=== PATIENT | female | born 1965 | race Asian ===

== ENCOUNTER 2018-03-21 14:35 | Inpatient (IN) | payer OTHER, MEDICAID ==
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
[2018-03-21] MEDS ORDERED: ONDANSETRON 4 MG/2 ML VIAL IVP PRN (18:01)
[2018-03-21] MEDS ORDERED: ONDANSETRON DISINTEGRATING 4 MG TAB PO PRN (18:01)
[2018-03-21 18:40] LABS: PLATELET COUNT 655 10^3/uL (150-400)
[2018-03-21] MEDS ORDERED: IOPAMIDOL (ISOVUE-300) 100 ML BTL ONE (19:00)
[2018-03-21 19:15] LABS: INR 1.11 (0.83-1.16); PROTIME(PATIENT) 14.5 SEC (12.0-15.0)
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
[2018-03-22 04:42] LABS: PLATELET COUNT 452 10^3/uL (150-400)
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
[2018-03-22] MEDS ORDERED: GADOBUTROL 10 ML VIAL IVP ONE (16:38)
[2018-03-23 05:22] LABS: PLATELET COUNT 425 10^3/uL (150-400)
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
[2018-03-23] MEDS ORDERED: MAGNESIUM HYDROXIDE 30 ML UDCUP PO PRN (14:02)
[2018-03-23] MEDS: SODIUM FERRIC GLUCONAT/SUCROSE 125 MG in NS 100 ML IV SCH (14:36)
[2018-03-24] MEDS: SODIUM FERRIC GLUCONAT/SUCROSE 125 MG in NS 100 ML IV SCH (09:08)
[2018-03-24] MEDS: ACETAMINOPHEN 325 MG TAB PO PRN ×3 (09:08→22:22)
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
--- NOTE | 2018-03-24 15:38 | ASMTCMCOM ---
CM Note CM Note Notes: Dr Downey met with pt to discuss probably metastatic dx of unknown primary and need for further testing. Pt declined at this time. CM will meet with pt tomorrow to discuss any concerns and any DC needs. CM to follow. Date Signed: 03/24/2018 03:37 PM Electronically Signed By:Dena Yin LCSW
[2018-03-25] MEDS: ACETAMINOPHEN 325 MG TAB PO PRN (06:17)
[2018-03-25 08:03] VITALS: BP 113/69
[2018-03-25] MEDS: SODIUM FERRIC GLUCONAT/SUCROSE 125 MG in NS 100 ML IV SCH ×2 (09:44→09:46)
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
== END 2018-03-25 19:00 | disposition home or self-care (01) | DRG 812 ==
LOC: EDBD 14:35 → F2N 19:47 → F1N 03-22 18:24
PROVIDERS: ADMIT Student in an Organized Health Care Education/Training Program; ATTEND Internal Medicine
PROC: 30233N1 Transfusion of Nonautologous Red Blood Cells into Peripheral Vein, Percutaneous Approach (ICD-10-PCS; principal; 2018-03-21)
DX: D50.9 Iron deficiency anemia, unspecified (principal); R41.0 Disorientation, unspecified; R47.01 Aphasia; C78.7 Secondary malignant neoplasm of liver and intrahepatic bile duct; C18.9 Malignant neoplasm of colon, unspecified; E87.1 Hypo-osmolality and hyponatremia; D47.3 Essential (hemorrhagic) thrombocythemia; Z03.89 Encounter for observation for other suspected diseases and conditions ruled out
CPT/HCPCS: 80305; 82607-90; 83010-90; 92507-GN; 92523-GN; 97112-GP; 97116-GP; 97161-GP; 97165-GO; 97530-GP; 97535-GO; A9585; G0480; J2916; P9016; Q9967

== ENCOUNTER 2018-03-30 16:36 | Inpatient (IN) | payer OTHER, MEDICAID ==
--- NOTE | 2018-03-30 16:36 | EDPHY ---
H & P Time Seen by Provider: 03/30/18 16:39 Constitutional: Initial Vital Signs Heart Rate 101 H 03/30/18 16:49 Respiratory Rate 18 03/30/18 16:49 Blood Pressure 118/70 03/30/18 16:49 O2 Sat (%) 95 03/30/18 16:49 O2 Delivery Mode Room Air Allergies/Adverse Reactions: antibiotics Allergy (Uncoded 03/21/18 14:54) Home Medications: Medication Instructions Recorded NK [No Known Home Meds] 03/21/18 Medical Decision Making ED Course/Re-evaluation: CHIEF COMPLAINT: Confusion, speech problems. HISTORY OF PRESENT ILLNESS: This patient is a 52 year old female arriving via EMS for evaluation of altered mental status. EMS picked her up from outside her apartment, were she was waiting for a turning sander tender. Throughout my interview she appears confused and disorganized, and it is difficult to obtain a clear history. She repeats that she is embarrassed and that the nurse knows her story. She was recently admitted 03/21/18 for severe anemia with hematocrit of 13. She had considerable weight loss in prior six months. During her admission, it was discovered by CT that she likely has metastatic hepatic disease with likely colon primary. Followup MRI showed possible small area of brain metastasis. Further HPI unable to obtain secondary to patient's mental status. REVIEW OF SYSTEMS: Unable to obtain. PHYSICAL EXAM: HR, BP, O2 Sat, RR. Temp noted General Appearance: Alert, appears confused and concerned. Head: Atraumatic without scalp tenderness or obvious injury Eyes: Pupils equal, round, reactive to light and accommodation, EOMI, no trauma , no injection. Ears: Clear bilaterally, no perforation, normal landmarks Nose: Atraumatic, no rhinorrhea, clear. Throat: There is no erythema or exudates, no lesions, normal tonsils, mucus membranes moist. Neck: Supple, 2+ carotid upstroke, nontender, no lymphadenopathy. Respiratory: No retractions, no distress, no wheezes, and no accessory muscle use. Lungs are clear to auscultation bilaterally. Cardiovascular: Regular rate and rhythm, no murmurs, rubs, or gallops. Bilateral carotid, radial, dorsalis pedis, and posterior tibial pulses intact. Good capillary refill all extremities. Gastrointestinal: Abdomen is soft, nontender, non-distended, no masses, no rebound, no guarding, no peritoneal signs. Musculoskeletal: Normal active ROM of all extremities, atraumatic. Neurological: Alert, appears confused, concerned.. Nonfocal neuro exam. Skin: No rashes, good turgor, no nodules on palpation. Past medical history: Anemia. Recent diagnosis of metastatic disease. Past surgical history: Unknown. Family history: Unable to obtain. Social history: Works at [employer]. DIFFERENTIAL DIAGNOSIS: The differential diagnosis for the patient's altered mental status included but was not limited to hypoglycemia, infectious process, electrolyte abnormality, head injury, neurologic process, anemia, cardiac process, and intoxicants. MEDICAL DECISION MAKIN52 y/o female presents with altered mental status. She has a similar but less severe presentation at her prior admission 03/21/18, as reported by nurses who worked with her at her prior visit. She was severely anemic at that time. Plan for labs including CBC, chemistries, ammonia, EtOH, tox screen. Reviewed laboratory studies. Hct 27.7. Tox screen negative. Chemistries unremarkable. 19:[address] Quinn, hospitalist. She accepts admission for altered mental status. Plan for CT head for further evaluation. 20:21 Administered 2mg IV Ativan for anxiety relief. Plan to admit as above. - Data Points Laboratory Results: Laboratory Results 03/30/18 17:52 03/30/18 17:52 03/30/18 03/30/18 03/30/18 17:52 17:52 17:52 WBC RBC Hgb Hct MCV MCH MCHC RDW Plt Count MPV Neut % (Auto) Lymph % (Auto) [place] % (Auto) Eos % (Auto) Baso % (Auto) Nucleat RBC Rel Count Absolute Neuts (auto) Absolute Lymphs (auto) Absolute Monos (auto) Absolute Eos (auto) Absolute Basos (auto) Absolute Nucleated RBC Immature Gran % Immature Gran # Platelet Estimate Bizarre Platelets Polychromasia Hypochromasia Microcytic Cells Elliptocytes Keratocytes Sodium 141 mEq/L mEq/L (135-145) Potassium 4.3 mEq/L mEq/L (3.3-5.0) Chloride 104 mEq/L mEq/L (97-110) Carbon Dioxide 25 mEq/l mEq/l (22-31) Anion Gap 12 mEq/L mEq/L (8-16) BUN 24 mg/dL H mg/dL (7-23) Creatinine 0.5 mg/dL L mg/dL (0.6-1.0) Estimated GFR > 60 Glucose 92 mg/dL mg/dL (70-100) Calcium 8.9 mg/dL mg/dL (8.5-10.4) Ammonia 20.0 uMOL/L uMOL/L (9.0-30.0) Beta HCG, Qual NEGATIVE Salicylates < 1.0 mg/dL L mg/dL (2.0-20.0) Acetaminophen < 10 mcg/mL L mcg/mL (10-30) Ethyl Alcohol < 10 mg/dL mg/dL (0-10) 03/30/18 17:52 WBC 10.54 10^3/uL H 10^3/uL (3.80-9.50) RBC 3.50 10^6/uL L 10^6/uL (4.18-5.33) Hgb 8.0 g/dL L g/dL (12.6-16.3) Hct 27.7 % L % (38.0-47.0) MCV 79.1 fL L fL (81.5-99.8) MCH 22.9 pg L pg (27.9-34.1) MCHC 28.9 g/dL L g/dL (32.4-36.7) RDW 26.7 % H % (11.5-15.2) Plt Count 692 10^3/uL H 10^3/uL (150-400) MPV 8.1 fL L fL (8.7-11.7) Neut % (Auto) 80.5 % H % (39.3-74.2) Lymph % (Auto) 10.7 % L % (15.0-45.0) [place] % (Auto) 6.6 % % (4.5-13.0) Eos % (Auto) 0.9 % % (0.6-7.6) Baso % (Auto) 0.9 % % (0.3-1.7) Nucleat RBC Rel Count 0.0 % % (0.0-0.2) Absolute Neuts (auto) 8.49 10^3/uL H 10^3/uL (1.70-6.50) Absolute Lymphs (auto) 1.13 10^3/uL 10^3/uL (1.00-3.00) Absolute Monos (auto) 0.70 10^3/uL 10^3/uL (0.30-0.80) Absolute Eos (auto) 0.09 10^3/uL 10^3/uL (0.03-0.40) Absolute Basos (auto) 0.09 10^3/uL 10^3/uL (0.02-0.10) Absolute Nucleated RBC 0.00 10^3/uL 10^3/uL (0-0.01) Immature Gran % 0.4 % % (0.0-1.1) Immature Gran # 0.04 10^3/uL 10^3/uL (0.00-0.10) Platelet Estimate INCREASED H (ADEQ) Bizarre Platelets PRESENT H Polychromasia 1+ H Hypochromasia 2+ H Microcytic Cells 1+ H Elliptocytes 1+ H Keratocytes 1+ H Sodium Potassium Chloride Carbon Dioxide Anion Gap BUN Creatinine Estimated GFR Glucose Calcium Ammonia Beta HCG, Qual Salicylates Acetaminophen Ethyl Alcohol Medications Given: Discontinued Medications Lorazepam (Ativan Injection) 2 mg IVP EDNOW ONE Stop: 03/30/18 20:22 Last Admin: 03/30/18 20:56 Dose: 2 mg Olanzapine (Zyprexa Zydis) 10 mg PO ONCE ONE Stop: 03/30/18 20:22 Last Admin: 03/30/18 20:57 Dose: Not Given Departure - Departure Disposition: [facility] Clinical Impression: Altered mental status Qualifiers: Altered mental status type: unspecified Qualified Code(s): R41.82 - Altered mental status, unspecified Condition: Fair Report Scribed for: Andrea Lamb Report Scribed by: Lorena Landeros Date of Report: 03/30/18 Time of Report: 16:52
--- NOTE | 2018-03-30 18:24 | ASMTCMCOM ---
CM Note CM Note Notes: Chart reviewed upon noting patient's recent admission and discharge (see reports 03/21/18-03/25/18). At present patient is extremely confused, clear speech but non sequential. She has her "best friend" Carolina on speaker phone as technical administrator is attempting to start IV and obtain blood for labs. Patient does give me permission to list Carolina as contactor PTN, as well as her "brother Catracho" . Patient (and Carolina) confirm that Catracho is in [place]. Patient is quite agitated and would like to keep Carolina on the phone at this time. In addition, patient has the phone number for her "CM at [facility]" written on a piece of paper [phone] Patient is clearly unable to have insight into her situation at this time and she will be admitted for further workup. I have called Carolina and BRANDEE (patient still has him on the phone) and informed him of plans for admission and to encourage availability for continued emotional support. CM to follow Date Signed: 03/30/2018 06:24 PM Electronically Signed By:Marilin Torres RN
[2018-03-30 18:30] LABS: PLATELET COUNT 692 10^3/uL (150-400)
[2018-03-30] MEDS ORDERED: ONDANSETRON DISINTEGRATING 4 MG TAB PO PRN (19:04)
[2018-03-30] MEDS ORDERED: ONDANSETRON 4 MG/2 ML VIAL IVP PRN (19:04)
[2018-03-30] MEDS ORDERED: IOPAMIDOL (ISOVUE-300) 100 ML BTL ONE (19:16)
[2018-03-30] MEDS ORDERED: LORazepam 2 MG/ML INJ ONE (20:19)
[2018-03-30] MEDS ORDERED: LORazepam 2 MG/ML INJ IVP ONE (20:21)
[2018-03-30] MEDS ORDERED: OLANZapine DISINTEGR 10 MG TAB PO ONE (20:21)
[2018-03-30] MEDS ORDERED: NS 1,000 ML IV SCH (22:15)
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
--- NOTE | 2018-03-31 07:36 | PDMN ---
Medical Necessity Medical necessity: Pt meets INPT criteria per MD and [facility] Systemic or Infectious Condition GRG (acute encephalopathy with suspected metastatic GI malignancy, iron deficeincy anemia, severe protein caloric malnutrition; est. LOS >2 MN).
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
--- NOTE | 2018-03-31 17:51 | HOSPPROG ---
Hospitalist Progress Note Assessment/Plan: Brother is concerned that patient cannot make decisions, would like to speak with day-rounder, his number is [phone] Objective: Vital Signs Temp Pulse Resp BP Pulse Ox 36.7 C 87 14 120/57 L 97 03/31/18 15:43 03/31/18 15:43 03/31/18 15:43 03/31/18 15:43 03/31/18 15:43 Laboratory Results 03/31/18 04:30 03/30/18 03/31/18 04/01/18 05:59 05:59 05:59 Output Total 700 850 Balance -700 -850 ICD10 Worksheet Patient Problems: Problems Problem Status Onset Anemia Acute Altered mental status Acute
[2018-03-31] MEDS: CALCIUM CARBONATE 500 MG CHEWABLE TAB PO PRN (20:38)
[2018-03-31] MEDS: FAMOTIDINE 20 MG TAB PO SCH (20:39)
[2018-03-31] MEDS: oxyCODONE IR 5 MG TAB PO PRN ×2 (20:39→22:29)
[2018-04-01] MEDS ORDERED: diphenhydrAMINE 25 MG CAP PO PRN (00:10)
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
[2018-04-01] MEDS: FAMOTIDINE 20 MG TAB PO SCH ×2 (08:37→20:01)
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
[2018-04-01] MEDS: CALCIUM CARBONATE 500 MG CHEWABLE TAB PO PRN (20:01)
[2018-04-01] MEDS: ACETAMINOPHEN 325 MG TAB PO PRN ×2 (20:02→23:50)
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
--- NOTE | 2018-04-01 20:41 | ASMTTCLDSP ---
[facility] Discharge Disposition Disposition Notes: Notes: Pt will remain on medical floor for medical treatment. Discharge Concerns/Recommendations: Notes: In consultation with [facility] ED physician, and on-call psychiatrist, , both concurred that Pt does not appear to meet 27-65 criteria requiring psychiatric hospitalization as Pt does not appear to be an imminent risk of harm to self/others/due to grave disability due to a mental illness condition. Was patient given the Answers: Not applicable Inpatient Behavioral Health Prohibited Belongings List while in the ED? Date Signed: 04/01/2018 08:41 PM Electronically Signed By:Erika Barros
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
[2018-04-02] MEDS: FAMOTIDINE 20 MG TAB PO SCH ×2 (07:48→21:31)
[2018-04-02] MEDS: ACETAMINOPHEN 325 MG TAB PO PRN ×2 (13:14→21:30)
--- NOTE | 2018-04-02 15:21 | GDS ---
[f rep st] DISCHARGE SUMMARY DISCHARGE DIAGNOSIS: 1. Acute encephalopathy. 2. 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 3. Iron deficiency anemia. 4. Severe protein calorie malnutrition. CONSULTATIONS: 1. TLC. 2. Montse Crain. PHYSICAL EXAM: GENERAL: The patient is alert. VITAL SIGNS: Afebrile at 36.6, pulse is 80, respira tory rate is is 18, blood pressure is 108/61. She is saturating 98% on room air. I have seen and evaluated the patient on the day of discharge. HOSPITAL COURSE: The patient is a 52-year-old female who presented to the emergency room after being found confused. She was evaluated and diagnosed with: 1. Acute encephalopathy. This was multifactorial. The patient did have a CT of her head, which bill wed no acute process. MRI was performed. Her encephalopathy has completely resolved. Her mentation has returned to baseline. 2. Hyper-enhancing abnormality on MRI. The patient is aware, and is understanding that we have conc erns for malignancy and abnormality. She wants no further intervention at this time. 3. 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 The patient is to be followed up with Dr. Dow[facility] setting. She has been offered further evaluation, including colonoscopy and/or liver biopsy during this hospitalization. She is refusing at this time, and understands that this could be detri mental to her health. She understands that she needs to follow up in the outpatient setting, and sana t her health is compromised. 4. Iron deficiency anemia. This is stable, is in the setting of likely metastatic gastroenterology complication. 5. Severe protein-calorie malnutrition. Again, the patient has multiple reasons for this. She does not eat, as well as has an abnormality in her gastrointestinal system. 6. Psychosocial: The patient has been seen by TLC during this hospitalization. She is felt to be a ppropriate and of capacity to make her own decisions. She has also been seen by Montse Crain during th is hospital course. The patient understands the repercussions of ignoring her diagnoses and further evaluation. She will be discharged home with further management outside the hospital with Dr. Downey, as well as o ther interventions, such as colonoscopy and/or liver biopsy. I have spent greater than 35 minutes in the care, coordination, and management of this patient's disp osition, assuring that she is knowledgeable about her condition, and the importance of outpatient fol lowup. I have also discussed the patient's disposition with Montse Crain, who is in agreement with thi s plan. DISCHARGE MEDICATIONS: None. /[id number]/MODL
[2018-04-02 15:53] VITALS: BP 124/78
--- NOTE | 2018-04-02 16:02 | ASMTCMCOM ---
CM Note CM Note Notes: Pt medically stable for d/c home independent, while pt is in process of moving she still has her own apartment to d/c to. Pt provided [facility] provider list as she expressed wanting to obtain [facility] PCP. Pt to follow up with oncology outpatient. Pt assessed to be able to make medical decisions and assessed by TLC (see note). No CM d/c needs identified Date Signed: 04/02/2018 04:02 PM Electronically Signed By:DELMER Lezama
--- NOTE | 2018-04-02 17:08 | ASMTLACE ---
PHILOMENAE Length of stay for Answers: 3 days current admission Acuity / Level of Answers: Yes Care: Did the patient have an inpatient admission? # of Emergency department Answers: 1-2 visits in the last 6 months Score: 7 Date Signed: 04/02/2018 04:58 PM Electronically Signed By:DELMER Lezama
[2018-04-02] MEDS: CALCIUM CARBONATE 500 MG CHEWABLE TAB PO PRN (21:30)
== END 2018-04-02 22:11 | disposition home or self-care (01) | DRG 70 ==
LOC: EDUNIT# → OBSVTOIN 19:06 → F3N 21:13
PROVIDERS: ADMIT Internal Medicine; ATTEND Internal Medicine
DX: G93.40 Encephalopathy, unspecified (principal); E43 Unspecified severe protein-calorie malnutrition; D50.9 Iron deficiency anemia, unspecified; R90.89 Other abnormal findings on diagnostic imaging of central nervous system; C78.7 Secondary malignant neoplasm of liver and intrahepatic bile duct; C18.9 Malignant neoplasm of colon, unspecified; R64 Cachexia; Z68.1 Body mass index [BMI] 19.9 or less, adult
CPT/HCPCS: 80305; 92610-GN; G0480; J2060; Q9967

== ENCOUNTER 2018-04-06 22:04 | Inpatient (IN) | payer OTHER, MEDICAID ==
[2018-04-07 00:03] LABS: PLATELET COUNT 957 10^3/uL (150-400)
--- NOTE | 2018-04-07 01:37 | EDPHY ---
H & P Stated Complaint: amemia and unable to sleeping prt pt Time Seen by Provider: 04/06/18 22:09 HPI/ROS: Chief Complaint: Delusional HPI: 52-year-old woman with a history of iron deficiency anemia, recently diagnosed with intra-abdominal likely metastatic masses and recent admissions for delirium. Patient came up to an ambulance the knocked on the door and said that she needed help. Patient says row she needs legal help. She is in a process of moving. She is also complaining of concerns about not being able to find her friends. She is rambling and very tangential. She has a history of similar episodes with her last 2 admissions which were attributed to her delirium from her iron-deficiency anemia. These resolved when she received blood transfusions. She has not followed up with Oncology. She states she has a process of moving and does not have time for this. She is very fixated on sending in males and having me fill out paperwork for legal issues. She seems unconcerned about her medical condition. ROS: 10 point Review of Systems is negative except as noted in the HPI. PMH: Iron deficiency anemia, likely metastatic colon cancer, delirium, malnutrition Social History: No smoking, no alcohol, no recreational drug use Family History: non-contributory Physical Exam: Gen: Awake, Alert, No Distress, frail and thin HEENT: Nose: no rhinorrhea Eyes: PERRLA, EOMI Mouth: Moist mucosa Neck: Supple, no JVD Chest: nontender, lungs clear to auscultation Heart: S1, S2 normal, no murmur Abd: Soft, non-tender, no guarding Back: no CVA tenderness, no midline tenderness Ext: no edema, non-tender Skin: no rash Neuro: CN II-XII intact, Sensation grossly intact, Strength 5/5 in bilateral upper and lower extremities - Personal History LMP (Females 10-55): Unknown Current Tetanus Diphtheria and Acellular Pertussis (TDAP): Unsure - Medical/Surgical History Hx Asthma: No Hx Chronic Respiratory Disease: No Hx Diabetes: No Hx Cardiac Disease: No Hx Renal Disease: No Hx Cirrhosis: No Hx Alcoholism: No Hx HIV/AIDS: No Hx Splenectomy or Spleen Trauma: No Other PMH: anemia - Social History Smoking Status: Never smoked Constitutional: Initial Vital Signs Temperature (C) 37.0 C 04/06/18 22:20 Heart Rate 90 04/06/18 22:20 Respiratory Rate 20 04/06/18 22:20 Blood Pressure 112/68 04/06/18 22:20 O2 Sat (%) 98 04/06/18 22:20 O2 Delivery Mode Room Air Allergies/Adverse Reactions: antibiotics Allergy (Uncoded 03/21/18 14:54) Home Medications: Medication Instructions Recorded NK [No Known Home Meds] 03/21/18 Medical Decision Making ED Course/Re-evaluation: Patient is noted drop in her hematocrit from 26-21 in the last 4 days. As she is currently presenting with a delirium. She will require transfusion. I have discussed with Dr. Yadav, hospitalist. She will admit to her service. I have ordered 2 units of crossmatched blood . - Data Points Laboratory Results: Laboratory Results 04/06/18 23:50 04/06/18 23:50 04/06/18 04/06/18 23:50 23:50 WBC 10.68 10^3/uL H 10^3/uL (3.80-9.50) RBC 2.71 10^6/uL L 10^6/uL (4.18-5.33) Hgb 6.3 g/dL L g/dL (12.6-16.3) Hct 21.4 % L % (38.0-47.0) MCV 79.0 fL L fL (81.5-99.8) MCH 23.2 pg L pg (27.9-34.1) MCHC 29.4 g/dL L g/dL (32.4-36.7) RDW 24.2 % H % (11.5-15.2) Plt Count 957 10^3/uL H 10^3/uL (150-400) MPV 7.9 fL L fL (8.7-11.7) Neut % (Auto) 81.5 % H % (39.3-74.2) Lymph % (Auto) 9.6 % L % (15.0-45.0) Day % (Auto) 7.2 % % (4.5-13.0) Eos % (Auto) 0.8 % % (0.6-7.6) Baso % (Auto) 0.4 % % (0.3-1.7) Nucleat RBC Rel Count 0.0 % % (0.0-0.2) Absolute Neuts (auto) 8.70 10^3/uL H 10^3/uL (1.70-6.50) Absolute Lymphs (auto) 1.03 10^3/uL 10^3/uL (1.00-3.00) Absolute Monos (auto) 0.77 10^3/uL 10^3/uL (0.30-0.80) Absolute Eos (auto) 0.09 10^3/uL 10^3/uL (0.03-0.40) Absolute Basos (auto) 0.04 10^3/uL 10^3/uL (0.02-0.10) Absolute Nucleated RBC 0.00 10^3/uL 10^3/uL (0-0.01) Immature Gran % 0.5 % % (0.0-1.1) Immature Gran # 0.05 10^3/uL 10^3/uL (0.00-0.10) Platelet Estimate INCREASED H (ADEQ) Polychromasia 1+ H Hypochromasia 2+ H Microcytic Cells 1+ H Oval Macrocytes 1+ H Elliptocytes 1+ H Smear Review By Pending Sodium 139 mEq/L mEq/L (135-145) Potassium 4.2 mEq/L mEq/L (3.3-5.0) Chloride 102 mEq/L mEq/L (97-110) Carbon Dioxide 27 mEq/l mEq/l (22-31) Anion Gap 10 mEq/L mEq/L (8-16) BUN 12 mg/dL mg/dL (7-23) Creatinine 0.4 mg/dL L mg/dL (0.6-1.0) Estimated GFR > 60 Glucose 102 mg/dL H mg/dL (70-100) Calcium 8.8 mg/dL mg/dL (8.5-10.4) Departure - Departure Disposition: [facility] Clinical Impression: Anemia, Altered mental status Condition: Fair Referrals: Patient,NotPresent [Primary Care Provider] - As per Instructions
[2018-04-07] MEDS ORDERED: ONDANSETRON 4 MG/2 ML VIAL IVP PRN (02:44)
[2018-04-07] MEDS ORDERED: ACETAMINOPHEN 325 MG TAB PO PRN (02:44)
[2018-04-07] MEDS ORDERED: NS 1,000 ML IV SCH (02:45)
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
[2018-04-07] MEDS: CALCIUM CARBONATE 500 MG CHEWABLE TAB PO PRN (15:40)
--- NOTE | 2018-04-07 16:55 | HOSPPROG ---
Hospitalist Progress Note Assessment/Plan: # anemia - likely d/t slow GI loss - improved s/p transfusion; recheck tomorrow # thrombocytosis - likely d/t Fe defic anemia # suspected cancer - she will revisit with me tomorrow discussions surrounding diagnosis/ treatment - check CEA, ca-19-9 # social - very tangential; currently seems to have limited social support; will make overall planning difficult I spent a total of 25 minutes of prolonged, direct face to face patient care time from 4:00-4:35 pm Objective: Vital Signs Temp Pulse Resp BP Pulse Ox 36.9 C 109 H 16 135/77 H 96 04/07/18 16:30 04/07/18 16:30 04/07/18 16:30 04/07/18 16:30 04/07/18 16:30 Laboratory Results 04/07/18 08:45 04/06/18 04/07/18 04/08/18 05:59 05:59 05:59 Intake Total 1300 Output Total 1400 Balance 1300 -1400 ICD10 Worksheet Patient Problems: Problems Problem Status Onset Anemia Acute Altered mental status Acute
[2018-04-08 04:50] LABS: PLATELET COUNT 870 10^3/uL (150-400)
--- NOTE | 2018-04-08 09:54 | ASMTCMCOM ---
CM Note CM Note Notes: CM Note from Monday04/07/12, written by Dena Yin LCSW (previously entered into incorrect chart) Per chart notes, pt admitted with acute encephalopathy, anemia, malnutrition and suspected malignancy of unknown origin. This ps pt's third hospitalization. Pt has refused workup for suspected ca. Met with pt who is tangential in her speech and hard to redirect. Pt has been in process of moving out of her apartment since end of February. She still has not moved out nor does she have a place to stay when she does. She indicated her brother Catracho in [place] may be able to take her in but that it would take a while to arrange that. She has no interest in a SNF. Per Dr Trujillo, though pt has refused colonoscopy, he will consider other options for getting a more definitive dx. Pt's DC needs unclear. Date Signed: 04/08/2018 09:53 AM Electronically Signed By:Rose Lynch RN
--- NOTE | 2018-04-08 11:52 | HOSPPROG ---
Hospitalist Progress Note Assessment/Plan: # anemia - likely d/t slow GI loss - improved s/p transfusion; recheck tomorrow # acute encephalopathy - seems related to her anemia; better again today # thrombocytosis - likely d/t Fe defic anemia, possibly inflammation # suspected cancer - she will revisit with me tomorrow discussions surrounding diagnosis/ treatment - CEA indeterminate, ca-19-9 pending # social - less tangential today - she is getting her belongings taken care of and moved out of her apt - she would like to think about doing a needle biopsy of a lesion in her liver - she will follow up with Dr Downey as an outpatient, possibly for outpatient transfusions Subjective: we haed a long discussion about her current status; she is getting her belongings taken care of and moved out of her apt; she would like to think about doing a needle biopsy of a lesion in her liver; she will follow up with Dr Downey as an outpatient, possibly for outpatient transfusions Objective: Vital Signs Temp Pulse Resp BP Pulse Ox 36.9 C 83 16 121/76 H 99 04/08/18 09:03 04/08/18 09:03 04/08/18 09:03 04/08/18 09:03 04/08/18 09:03 Laboratory Results 04/08/18 04:40 04/07/18 04/08/18 04/09/18 05:59 05:59 05:59 Intake Total 1300 1800 Output Total 3250 Balance 1300 -1450 - Time Spent With Patient Time Spent with Patient: greater than 35 minutes Time Spent with Patient: Greater than 35 minutes spent on this patients care, greater than 50% of time spent counseling, educating, and coordinating care regarding the above mentioned plan. - Physical Exam Constitutional: no apparent distress, appears nourished ICD10 Worksheet Patient Problems: Problems Problem Status Onset Anemia Acute Altered mental status Acute
--- NOTE | 2018-04-08 20:03 | PDMN ---
Medical Necessity Medical necessity: [facility] M35 anemia: A-1 INPT anemia likely GI loss improving with transfusions ( X2 ) , H 6.3,8.9,8.5.. AMS persistent- improving, thrombocytosis, suspect Ca., pt with mets to liver and lesion on MRI 5 mm focus on the L cerebellar vermis, status changed to INPT 04/08/18 for ongoing med nec. further monitoring and tx needed.
[2018-04-08] MEDS: CALCIUM CARBONATE 500 MG CHEWABLE TAB PO PRN (21:51)
[2018-04-09 04:44] LABS: PLATELET COUNT 846 10^3/uL (150-400)
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
--- NOTE | 2018-04-09 11:02 | HOSPPROG ---
Hospitalist Progress Note Assessment/Plan: # anemia - likely d/t slow GI loss - improved s/p transfusion; recheck tomorrow # acute encephalopathy - seems related to her anemia; better again today # thrombocytosis - likely d/t Fe defic anemia, possibly inflammation # suspected cancer - per Dr Fitzgerald her prognosis is 3 months without treatment - will discuss tomorrow at 11a with patient and her MDPOA Gene - CEA indeterminate, ca-19-9 pending # social - less tangential today - she will likely follow up with Dr Downey as an outpatient, possibly for outpatient transfusions Subjective: long discussion today; met with Lisa and spoke with Gene on the phone Objective: Vital Signs Temp Pulse Resp BP Pulse Ox 36.7 C 85 16 113/71 99 04/09/18 07:28 04/09/18 07:28 04/09/18 07:28 04/09/18 07:28 04/09/18 07:28 Laboratory Results 04/09/18 04:23 04/08/18 04/09/18 04/10/18 05:59 05:59 05:59 Intake Total 800 Output Total 2850 Balance -2049 - Time Spent With Patient Time Spent with Patient: greater than 35 minutes Time Spent with Patient: Greater than 35 minutes spent on this patients care, greater than 50% of time spent counseling, educating, and coordinating care regarding the above mentioned plan. - Physical Exam Constitutional: no apparent distress, appears nourished ICD10 Worksheet Patient Problems: Problems Problem Status Onset Anemia Acute Altered mental status Acute
[2018-04-09] MEDS: SODIUM FERRIC GLUCONAT/SUCROSE 125 MG in NS 100 ML IV SCH (14:08)
--- NOTE | 2018-04-09 16:26 | ASMTCMCOM ---
CM Note CM Note Notes: Spoke with Nasima from [facility] ([phone]) who is concerned if patient has been told she has cancer and whether she is willing to proceed with medical procedures to determine what is causing her anemia. Nasima was informed patient is decisional per Dr. Trujillo and doing a psych eval is not going to solve issues with her medical care right now. We also did a psych eval her last admission. Spoke with patient's nurse prior to going to visit with the patient. Patient has not slept and the nurse requested I not wake her up. CM to follow up tomorrow and see if patient has a friend or family member she can stay with. Nasima ([facility]) spoke with patient's brother who states they are close but patient has stated her brother does not know what is best for her. D/C plan TBD. CM will follow. Date Signed: 04/09/2018 03:59 PM Electronically Signed By:Doreen Bello LCSW
[2018-04-10 08:23] LABS: PLATELET COUNT 789 10^3/uL (150-400)
[2018-04-10] MEDS: SODIUM FERRIC GLUCONAT/SUCROSE 125 MG in NS 100 ML IV SCH (09:21)
--- NOTE | 2018-04-10 11:56 | HOSPPROG ---
Hospitalist Progress Note Assessment/Plan: # anemia - likely d/t slow GI loss - transfuse 1U PRBC today # acute encephalopathy - worse today; will follow after transfusion # thrombocytosis - likely d/t Fe defic anemia, possibly inflammation # suspected metastatic cancer - per Dr Fitzgerald her prognosis is 3 months without treatment - i have clearly conveyed this to her; she does not want her team to know this suspected diagnosis right now - i have encouraged her to share this with her team - CEA indeterminate, ca-19-9 pending # social - delirium worse; still has decisional capacity # dispo - could setup outpatient IV Fe and transfusions but need a stable social situation; met with Dr Downey previously Subjective: long care meeting with Lisa Thomason Katti and patient; Objective: Vital Signs Temp Pulse Resp BP Pulse Ox 36.8 C 92 12 105/62 96 04/10/18 08:00 04/10/18 08:00 04/10/18 08:00 04/10/18 08:00 04/10/18 08:00 Laboratory Results 04/10/18 08:09 04/09/18 04/10/18 04/11/18 05:59 05:59 05:59 Intake Total 800 400 Output Total 2850 600 Balance -2050 -200 50 minutes of patient care time from 11:00-11:50 ICD10 Worksheet Patient Problems: Problems Problem Status Onset Anemia Acute Altered mental status Acute
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
[2018-04-11 05:38] LABS: PLATELET COUNT 736 10^3/uL (150-400)
[2018-04-11] MEDS: SODIUM FERRIC GLUCONAT/SUCROSE 125 MG in NS 100 ML IV SCH (09:04)
--- NOTE | 2018-04-11 15:07 | GCON ---
[f rep st] CONSULTATION INPATIENT ONCOLOGY CONSULTATION DATE OF CONSULTATION: 04/11/2018 REFERRING PHYSICIAN: Mark Anthony Trujillo MD REASON FOR CONSULTATION: Metastatic colon cancer and severe anemia. HISTORY OF PRESENT ILLNESS: The patient is a 52-year-old woman with what appears to be recently diag nosed metastatic colon cancer. She presented in late February with profound anemia due to iron deficienc y. Her hemoglobin was 3.2. She received transfusions. A CT scan revealed multiple lesions up to 3. 7 cm in size highly suspicious for metastatic disease. There was suspected bowel wall thickening of the ascending colon. The patient thus far has refused evaluation such as colonoscopy or biopsy. She has been discharged and then readmitted to the hospital with symptomatic anemia and has received mul tiple blood transfusions and iron replacement. I was asked to meet with her today to discuss her pro gnosis and help make decisions regarding her future care. She complains of being overwhelmed with various other aspects of her life including recently having t o leave her apartment, the loss of some of her belongings, and her nutritional status. PAST MEDICAL HISTORY: Protein calorie malnutrition due to cancer. CURRENT MEDICATIONS: Include Tums, ferric gluconate 125 mg daily. ALLERGIES: To NSAIDs. FAMILY HISTORY: Noncontributory. SOCIAL HISTORY: She is a nonsmoker, nondrinker. She currently does not have a place to live. REVIEW OF SYSTEMS: Aside from pertinent positives in the HPI, a 14-point review of systems was negat harjit. EXAMINATION: VITAL SIGNS: Her temperature was 36.8, blood pressure 100/52, heart rate 76, oxygen sa turation 96% on room air. GENERAL: She was a cachectic-appearing woman in no acute distress. HEENT : Sclerae anicteric. Oropharynx was clear. NECK: Supple. No lymphadenopathy. LUNGS: Clear to a uscultation bilaterally. CARDIAC: Regular rhythm. No murmurs, gallops, rubs. ABDOMEN: Normoactiv e bowel sounds, was mildly distended without focal tenderness. EXTREMITIES: Without edema. NEUROLO GIC: Alert and oriented x3. LABORATORY DATA: White count 16.5, currently neutrophils, hemoglobin 9.1, platelets of 736, albumin 2.8. CEA mildly elevated at 3.78. IMPRESSION: This is a 52-year-old woman with almost certainly a metastatic colon cancer. Under norm al circumstances, we would get a biopsy of either the liver or the colon lesion to confirm the diagno sis and then discuss palliative chemotherapy, which is not curative, but can be effective in reducing the burden of disease and prolonging life. I explained to the patient that she is extremely weakene d by the cancer in terms of malnutrition and anemia. The chronic leukocytosis is in itself a sign of end-stage disease. I explained to her that we do not have the luxury of waiting weeks or months for her to feel better because the cancer will likely continue to sap her strength. It is fine if she gloria sandoval to not proceed with active therapy and instead to go on hospice, but I do not want her to have the impression that we have a lot of time for her to delay if she at some point would wish to proceed with conventional medical therapy. She seems to have a capacity to make medical decisions, but certainly has a somewhat unusual way of t hinking about them. She is not really ready to proceed with any sort of diagnostic evaluation, but w ould like to continue receiving red blood cell transfusions if needed. My advice would be to dischar ge her to a prison facility and they can check complete blood counts once or twice per week when she is there. If her hemoglobin drops below 7 or 8, we can arrange for outpatient transfusion. For someone who is not pursuing active therapy for the cancer, hospice would really be the most appr opriate thing, though she is not really willing to consider that at this time either. I will be happy to arrange followup in our clinic when she is discharged. Please contact me with any additional questions in the interim. /[id number]/MODL
--- NOTE | 2018-04-11 15:43 | HOSPPROG ---
Hospitalist Progress Note Assessment/Plan: # anemia - likely d/t slow GI loss - transfuse 1U PRBC today # acute encephalopathy - better today after transfusion - her mental status is closely tied to her anemia # thrombocytosis - likely d/t Fe defic anemia, possibly inflammation # suspected metastatic cancer - per Dr Fitzgerald her prognosis is 3 months without treatment - she is currently refusing a needle biopsy of her liver - she understands she cannot get definitive treatment without this - CEA indeterminate, ca-19-9 low # psych - suspect there is a chcf component of OCD or PTSD; she has decisional capacity; she does not meet inpatient psych criteria # dispo - currently evaluating for SNF - if SNF unavailable she could stay at her friend Robert's place (with home care) - would plan on biweekly CBCs - if hgb<8 transfuse as outpatient at [facility] (Dr Fitzgerald aware and accepting of this plan, Dr Downey also involved) - she should continue IV Fe if available at SNF - otherwise needs PO Subjective: long discussion today about dispo plans Objective: Vital Signs Temp Pulse Resp BP Pulse Ox 36.7 C 95 17 133/83 H 97 04/11/18 15:21 04/11/18 15:21 04/11/18 15:21 04/11/18 15:21 04/11/18 15:21 Laboratory Results 04/11/18 05:19 04/10/18 04/11/18 04/12/18 05:59 05:59 05:59 Intake Total 400 900 Output Total 600 700 Balance -200 900 -700 - Time Spent With Patient Time Spent with Patient: greater than 35 minutes Time Spent with Patient: Greater than 35 minutes spent on this patients care, greater than 50% of time spent counseling, educating, and coordinating care regarding the above mentioned plan. - Physical Exam Constitutional: chronically ill appearing, cachectic ICD10 Worksheet Patient Problems: Problems Problem Status Onset Anemia Acute Altered mental status Acute
--- NOTE | 2018-04-11 16:34 | ASMTCMCOM ---
CM Note CM Note Notes: Pt spoke with Dr Fitzgerald today who was clear with pt about her probably dx and prognosis. Pt tentatively agreed to SNF. Referral submitted to [facility] PT[facility]OT ordered. Also spoke with pt's MDPOA, Paddy today. Gene stated that he had found a friend wirh whom pt can stay for a week. Pt has not wanted her brother or friends to know of her condition but this makes it harder for them to help her because they are attributing her physical problems to her recent financial stressors. Date Signed: 04/11/2018 04:34 PM Electronically Signed By:Dena Yin LCSW
[2018-04-12 05:14] LABS: PLATELET COUNT 762 10^3/uL (150-400)
[2018-04-12] MEDS: SODIUM FERRIC GLUCONAT/SUCROSE 125 MG in NS 100 ML IV SCH (10:19)
--- NOTE | 2018-04-12 11:02 | HOSPPROG ---
Hospitalist Progress Note Assessment/Plan: 52yo F with suspected metastatic GI cancer, iron deficiency anemia here for 3rd presentation in last 3 weeks for encephalopathy and anemia requiring PRBC transfusions. This is my first encounter with the patient. # Tangential thought processes, paranoia: These is worsening per greenhouse staff and CM. The paranoia also seems to be new. No reported h/o psych diagnoses in the past. - Psych consult - Discuss with palliative care re: evaluation of decision making capacity # Acute encephalopathy: She is oriented today although difficult for patient to state why she is hospitalized. This has previously improved after PRBC transfusions. - Avoid centrally acting meds, eval as above # Anemia: likely d/t slow GI loss - Daily CBC, transfuse to keep hgb>7 # Suspected metastatic cancer: Likely gastrointestinal primary. Per Dr Fitzgerald her prognosis is 3 months without treatment - she is currently refusing a needle biopsy of her liver - she understands she cannot get definitive treatment without this - CEA indeterminate, ca-19-9 low # Thrombocytosis: Likely d/t Fe defic anemia, possibly inflammation # Leukocytosis: Likely reactive in setting of malignancy # Dispo - pending psych and decision making capacity evaluation - will keep SNF as option, CM involved - if SNF unavailable she could stay at her friend Robert's place (with home care) - would plan on biweekly CBCs - if hgb<8 transfuse as outpatient at [facility] (Dr Fitzgerald aware and accepting of this plan, Dr Downey also involved) - she should continue IV Fe if available at SNF - otherwise needs PO Subjective: Sitting up eating breakfast this morning. Difficult to interact with patient as she is very tangential and somewhat paranoid this morning. She reports having pain but unable to state location. Objective: Vital Signs Temp Pulse Resp BP Pulse Ox 36.8 C 113 H 17 124/80 H 97 04/12/18 10:20 04/12/18 10:20 04/12/18 10:20 04/12/18 10:20 04/12/18 10:20 Laboratory Results 04/12/18 05:05 04/12/18 05:05 04/11/18 04/12/18 04/13/18 05:59 05:59 05:59 Intake Total 900 950 Output Total 650 1200 600 Balance 250 -250 -600 - Physical Exam Constitutional: cachectic Eyes: anicteric sclera, EOMI Cardiovascular: regular rate and rhythym, no murmur, rub, or gallop Respiratory: no respiratory distress, no rales or rhonchi, clear to auscultation Gastrointestinal: normoactive bowel sounds, other (scaphoid abdomen), No tenderness Skin: other (bruising on R antecubital fossa) Psychiatric: other (pressured speech, animated and somewhat labile affect, very tangential thought processes) ICD10 Worksheet Patient Problems: Problems Problem Status Onset Altered mental status Acute Anemia Acute
--- NOTE | 2018-04-12 12:24 | ASMTCMCOM ---
CM Note CM Note Notes: Complex Care Meeting Note - 04/11: Discussed this patient's case in the Complex Care Meeting on Monday, 04/11. Dr. Mcrae was able to speak with following provider - PT/OT warranted and ordered. This will help in our discharge planning process. I also discussed this case with Social Work who states patient is now agreeable to possible SNF placement (referrals have been made, see previous SW note). Dr. Mcrae was able to speak with Hospitalist who does not feel patient is ready for a palliative care conversation at this time. At this time, will work towards SNF. CM will follow. Date Signed: 04/12/2018 12:23 PM Electronically Signed By:Genesis Mills RN
--- NOTE | 2018-04-12 16:35 | ASMTCMCOM ---
CM Note CM Note Notes: Pt is showing signs of paranoia today and a psych eval has been ordered. Dr Beatty will come late this afternoon. Depending on outcome of eval, pt will likely be evaluated for decisional capacity tomorrow. So far [facility] are on fence about taking pt. PT/OT cleared pt so she only meets skilled need for nursing. CM will continue to follow. Date Signed: 04/12/2018 04:35 PM Electronically Signed By:Dena Yin LCSW
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
[2018-04-12] MEDS ORDERED: MELATONIN 3 MG TAB PO PRN (20:19)
[2018-04-12] MEDS: OLANZapine DISINTEGR 5 MG TAB PO PRN (22:04)
[2018-04-13] MEDS ORDERED: LORazepam 0.5 MG TAB PO PRN
[2018-04-13 06:03] LABS: PLATELET COUNT 688 10^3/uL (150-400)
[2018-04-13] MEDS: SODIUM FERRIC GLUCONAT/SUCROSE 125 MG in NS 100 ML IV SCH (10:56)
--- NOTE | 2018-04-13 13:08 | ASMTCMCOM ---
CM Note CM Note Notes: Pt has agreed to shelter but will not meet SNF criteria because PT/OT cleared her. Submitted ULTC 100 to [facility]. [facility] submitted LTC Medicaid [facility]. Referral faxed to [facility] and [facility]. [facility] declined due to lack of LTC beds. Spoke with pts friend of 25 years, Louise ([phone]), from [place] today. She stated that pt has no one to really help her that lives in [place]. Her friends here are more peripheral. Louise stated that pts brother Catracho is willing to help financially but cannot take time off from work of have his sister live with him. Pts friend Louise, friend and [facility] Gene and brother all would like more information on pts condition but so far pt has not given permission for anyone to talk with them about her medical condition. Date Signed: 04/13/2018 01:06 PM Electronically Signed By:Dena Yin LCSW
--- NOTE | 2018-04-13 15:23 | ASMTCMCOM ---
CM Note CM Note Notes: CM spoke with Pt's friend Paddy. Offered information related to her mental health only. Paddy will encourage her group of friends to support her working with psychiatrist re medications that could be helpful. Date Signed: 04/13/2018 03:22 PM Electronically Signed By:Erika Barros
--- NOTE | 2018-04-13 16:14 | HOSPPROG ---
Hospitalist Progress Note Assessment/Plan: 52yo F with suspected metastatic GI cancer, iron deficiency anemia here for 3rd presentation in last 3 weeks for encephalopathy and anemia requiring PRBC transfusions. Had pressured speech, tangential thought processes, paranoia which significantly worsened afternoon of 04/13. She did receive 1 dose of olanzapine evening of 04/13. Today, she is much more linear in her thought processes and appears to have adequate insight into her current medical state. # Behavioral disturbance: I suspect that she has some underlying psychiatric disorder (ie. anxiety, depression) and several recent stressors (new diagnosis of suspected malignancy, financial, living situation) have lead to a brief psychotic episode. - Psych consulted, appreciate assistance. At this juncture, it seems less likely that she would benefit from inpatient psych placement - She appears to have decision making capacity today - She is declining any anti-psychotic medications - Schedule melatonin to help with sleep-wake disturbances (she is agreeable to this) # Encephalopathy: She is no longer encephalopathic. This has previously improved after PRBC transfusions. - Avoid centrally acting meds, eval as above # Anemia: likely d/t slow GI loss although FOBT was negative during prior admission - Hold on checking CBC in AM to limit disturbances - Switching from IV (has received 5 doses) to PO iron # Suspected metastatic cancer: Likely gastrointestinal primary. Per Dr Fitzgerald her prognosis is 3 months without treatment - She is currently refusing a needle biopsy of her liver or colonoscopy. She understands that this is limiting our full evaluation and treatment options - CEA indeterminate, ca-19-9 low # Thrombocytosis: Likely d/t Fe defic anemia, possibly inflammation # Leukocytosis: Likely reactive in setting of malignancy # Dispo: Complicated. - Not meeting SNF criteria as she has been cleared by therapy services - pursuing long-term care (submitted medicaid conr[place]) - Patient not wanting medical providers to discuss her current medical state with any friends/family, making it difficult for them to understand the situation and provide support. Per friend Louise and others, patient does not have strong support system here in [place]. - Will re-discuss involving palliative care with patient. Can help with symptom management as well as discussing hospice care if she continues to refuse evaluation Subjective: Upset with how she was treated yesterday; felt like she was a guinea pig. She is wanting to eat. We discussed several recent stressors including financial and living situations. Objective: Vital Signs Temp Pulse Resp BP Pulse Ox 36.7 C 103 H 16 117/82 H 97 04/13/18 07:53 04/13/18 07:53 04/13/18 07:53 04/13/18 07:53 04/13/18 07:53 Laboratory Results 04/13/18 04:42 04/12/18 05:05 04/12/18 04/13/18 04/14/18 05:59 05:59 05:59 Intake Total 950 750 Output Total 1200 600 Balance -250 150 - Physical Exam Constitutional: cachectic Eyes: anicteric sclera Cardiovascular: regular rate and rhythym, no murmur, rub, or gallop Respiratory: no respiratory distress, no rales or rhonchi, clear to auscultation Skin: other (bruise on right forearm) Neurologic: AAOx3 Psychiatric: other (less agitated today, less pressured speech, mostly linear thinking) ICD10 Worksheet Patient Problems: Problems Problem Status Onset Altered mental status Acute Anemia Acute
[2018-04-13] MEDS ORDERED: MELATONIN 3 MG TAB PO SCH (21:00)
--- NOTE | 2018-04-14 09:19 | SOAPPROG ---
SOAP Progress Note Assessment/Plan: PSYCHIATRY MD CONSULT- FOLLOW-UP 52yo with recently diagnosed metastatic CA with unknown primary, in context of multiple psychosocial stressors including homelessness, financial, employment ( on leave), limited social supports, and apparent untreated underlying mental health disorder (mood/anxiety spectrum), who was noted to be increasingly manic/ psychotic recently 3rd admission this month with encephalopaty late entry. Patient seen in AM on 04/13 after spoke with RN. Also spoke with hospitalist and rn palliative care about assessment and recommendations. Pt slept through the night and had also taken melatonin 6mg, and later took olanzapine 2.5mg. On interview, patient was pleasantly welcoming, recalled my name and that I was with behavioral health. She stated she felt better after almost a full night of sleep, although still feels she needs more sleep and to eat better, as she still felt depleted. She was sitting up in chair, in front of 2 breakfast trays , trying to arrange her food as she wanted it, and expressing some frustrations regarding how her omelette was prepared, with cheese only the inside and none melted on top as she requested. "They got it right last time, not this time". She then added butter and cream cheese onto omelette, but ultimately did not eat it, and instead ate her citrus fruit "which will help me absorb iron". Mentioned really wanting a rare burger from [employer], and then asked if I minded that she go ahead and call [employer] to order pot roast, which she did with specific requests to [employer] including "no gravy because that has a lot of salt and it makes my hands go numb." She admitted that the cancer diagnosis was very emotionally traumatizing for her , but she was just "trying to be present" in the moment, which is all she could do also at the time of her diagnosis. She talked of her care under Dr. Pompa, and how she appreciated him being very forthcoming about her diagnosis and prognosis, feeling they were able to have a good conversation about this. And she reported being happy with her current providers as well. However, she did not want any family or friends to be informed of her medical issues "because I' m just not ready for them to know". Also when asked about her reported refusal for further work-up, she said there were issues based on prior trauma, "but I haven't fully decided, I want more information" regarding liver biopsy. She stated that she was "fully on board" when SNF was mentioned as an option, expressing desire to be where somewhere where she can continue to recuperate and regain her strength. Knows her prognosis is poor. Did not want to discuss other stressors related to her move out of apartment, or contracts attorney issues she mentioned yesterday. She did not want to discuss any psychiatric medications or options, even ativan for anxiety, preferring to just continue with melatonin at night, and wants to read more about the zyprexa online. MSE: in hospital gowns, unkempt hair, good eye contact, articulate speech, with normal volume and more normal although still somewhat increased rate speech. mood "depleted" but also anxious, agreeing that the word she used yesterday- "panicked"- would be accurate for how she feels internally but that she is trying to "be present" in the moment, and listening to meditative relaxing music (which she was doing, and continued on in background) was helpful. Affect was initially bright and engaging, but became progressively more frustrated as she perseverated on problems with her food order. She was redirectable for periods, but ultimately requested to end interview, stating she was still feeling weakened by her poor nutritional status and cumulative lack of sleep. She did not want to address any mental health issues. Thoughts were more linear today, although still with idiosyncrasies, using initials when referring to certain people which she would explain when asked. No evidence of delusions or paranoia, nor of responding to any internal stimuli. No reported SI/HI. I-fair, J-impaired, Cognition seemed intact. IMPRESSION: Significant improvement noted clinically after full night sleep last night and low dose zyprexa. DIAGNOSIS Brief Psychotic Disorder r/o unspecified anxiety disorder (possible hx of ptsd, ocd) r/o unspecified mood disorder r/o mood disorder due to general medical condition (incl metastatic dx, anemia, nutritional def, TBI) RECOMMENDATIONS: -inpatient psychiatry not indicated at this time and likely would not be beneficial given her resistance to engaging with psychiatric treatment -Patient does not want to take psychotropic again but would like to continue with melatonin and agrees to have it scheduled at HS from 3-6mg prn. patient prefers "natural" treatments. wants to look up zyprexa online, prefer to provide patient with written patient info from pharmacy -will leave zyprexa as 2.5mg bid prn and encourage to take as indicated -cont lorazepam 0.5mg prn, has not used. consider alternate BZD, longer acting such as clonazepam, temazepam, or even diazepam if patient amenable, which could help with sleep, anxiety and manic symptoms, and patient may be less averse to BZD than a psychotropic -pt apparently still struggling emotionally with implications of cancer dx, but does not want to share this with friends or family. will continue to follow. patient reports during a prior admission that she had nice long talk with Montse Loredo, behav health RN. Will leave msg for her to f/u for further assessment and support. -will continue to follow along and make recommendations as indicated. Objective: Vital Signs Temp Pulse Resp BP Pulse Ox 37.4 C 90 20 107/60 95 04/13/18 16:54 04/13/18 16:54 04/13/18 16:54 04/13/18 16:54 04/13/18 16:54 Laboratory Results 04/13/18 04:42 04/12/18 05:05 04/13/18 04/14/18 04/15/18 05:59 05:59 05:59 Intake Total 750 140 Output Total 600 Balance 150 140 - Time Spent With Patient Time Spent With Patient: 60min - Pending Discharge Pending Discharge Within 24 Hours: No Pending Discharge Within 48 Hours: No ICD10 Worksheet Patient Problems: Problems Problem Status Onset Altered mental status Acute Anemia Acute
--- NOTE | 2018-04-14 15:47 | HOSPPROG ---
Hospitalist Progress Note Assessment/Plan: 52yo F with suspected metastatic GI cancer, iron deficiency anemia here for 3rd presentation in last 3 weeks for encephalopathy and anemia requiring PRBC transfusions. Had pressured speech, tangential thought processes, paranoia which significantly worsened afternoon of 04/13. She did receive 1 dose of olanzapine evening of 04/13 that seemed to help. Today, she has regressed and does not appear to have insight into her condition. # Behavioral disturbance: Worsened today. Suspect poor coping of suspected cancer diagnosis has lead to brief psychotic episode. She does not seem to be decisional today - Psych consulted, appreciate assistance - She is declining any anti-psychotic medications or benzodiazepines. Will keep on PRN in case her condition escalates - Schedule melatonin to help with sleep-wake disturbances (she is agreeable to this) # Encephalopathy: This has previously improved after PRBC transfusions. Not clearly encephalopathic, just with odd behavior as above. # Anemia: likely d/t slow GI loss although FOBT was negative during prior admission - Hold on checking CBC in AM to limit disturbances - Switched from IV (has received 5 doses) to PO iron # Suspected metastatic cancer: Likely gastrointestinal primary. Per Dr Fitzgerald her prognosis is 3 months without treatment - She is currently refusing a needle biopsy of her liver or colonoscopy. She understands that this is limiting our full evaluation and treatment options - CEA indeterminate, ca-[id number] low # Thrombocytosis: Likely d/t Fe defic anemia, possibly inflammation # Leukocytosis: Likely reactive in setting of malignancy # Dispo: Complicated. - Not meeting SNF criteria as she has been cleared by therapy services - pursuing long-term care (submitted medicaid [place]) - Patient not wanting medical providers to discuss her current medical state with any friends/family (this was again addressed today), making it difficult for them to understand the situation and provide support. Per friend Louise and others, patient does not have strong support system here in [place] - Currenlty do not have discharge plan Subjective: Angel is sitting on the floor coloring with a marker during my interview today. She has tangential and rather [id number] thoughts. Objective: Vital Signs Temp Pulse Resp BP Pulse Ox 37.1 C 105 H 16 101/81 H 96 04/14/18 13:09 04/14/18 13:09 04/14/18 13:09 04/14/18 13:09 04/14/18 13:09 Laboratory Results 04/13/18 04:42 04/12/18 05:05 04/13/18 04/14/18 04/15/18 05:59 05:59 05:59 Intake Total 750 140 Output Total 600 Balance 150 140 - Physical Exam Constitutional: other (disheveled) Eyes: PERRL, anicteric sclera, EOMI Psychiatric: poor insight, other (tangential thought processes, some pressured speech) ICD10 Worksheet Patient Problems: Problems Problem Status Onset Altered mental status Acute Anemia Acute
[2018-04-14] MEDS: FERROUS SULFATE 325 MG TAB PO SCH ×2 (17:24→21:21)
--- NOTE | 2018-04-14 18:14 | ASMTLCPROG ---
Notes Note: Notes: STAT Team was called to 155. [facility] was near by and staff asked me to join in the room. PT was escalated, screaming, in code asking for people by letters tangental. "D, D,D (repeating) Julien Gee, Skating, skating, skating Marlen Victoria helped me make a skate board, Gater, Later Gater, Skating." PT was lucid enough to perseverate NO NO NO ZYPREX (REPEATED) when she heard staff mention it. I spoke with pt about yoga and mediation. PT wanted me to stand closer saying shouldnt see me (pointing to my badge saying D), Standing 3-5 feet away I listened and attempted to calm her interjecting calmly words about yoga breathing, meditaiton. I played a meditation track on my phone and she calmed, then put the playlist on her comptuer. My volt rang and I had to take the call. Reported after to Dr. Lacey about how the PT's decompensated and her current state. Date Signed: 04/14/2018 06:13 PM Electronically Signed By:Julien Atkinson
[2018-04-14] MEDS ORDERED: LORazepam 0.5 MG TAB PO PRN (18:28)
--- NOTE | 2018-04-14 19:13 | SOAPPROG ---
SOAP Progress Note Assessment/Plan: PSYCHIATRY MD CONSULT- FOLLOW-UP 52yo with recently diagnosed metastatic CA with unknown primary, in context of multiple psychosocial stressors including homelessness, financial, employment ( on leave), limited social supports, and apparent untreated underlying mental health disorder (mood/anxiety spectrum), who was noted to be increasingly manic/ psychotic recently 3rd admission this month with encephalopathy PHONE CALL FROM [facility] earlier today reporting that friend Louise called to pass on a message to psychiatry. [facility] Julien received message from Louise noting her concern that the MD ESTRELLITAA Gene whom patient appointed has posted updates online and by text, and Louise knows patient has not wanted people to know about her condition/status, even reportedly rescinding her BELLO for family/friends. The post reportedly concerned the recent psych eval and antipsychotic recommendation , and also regarding what to do with her belongings, indicating some things may have been initially given away or sold. [facility] will alert 1N piano case maker to further explore this, and also it will be recommended to not provide further information to MD OLVERA about patient care at this time unless clinically indicated, especially since it was recently felt that she has capacity to make her own medical decisions. UPDATE: Phone call from [facility] Julien, reporting STAT was called on patient late this afternoon. See RN note for details. [facility] spent time with her and offered support , coping strategies, and helped set up meditative music online which she could play to relax. [facility] felt there was some behavioral component to her presentation , in addition to her hypomanic like state. She responded to his intervention and RN reported she has been calm in her room since. DIAGNOSIS Brief Psychotic Disorder r/o unspecified anxiety disorder (possible hx of ptsd, ocd) r/o unspecified mood disorder r/o mood disorder due to general medical condition (incl metastatic dx, anemia, nutritional def, TBI) RECOMMENDATIONS: -follow up on MD OLVERA issue as above, and f/u on her BELLO -please refer to Behav Health RN Montse Loredo's note- under "Notes" tab dated 02/12- this gives a good overview of her baseline and mental health history with her need for control and tendency to decompensate under stress or any retraumatization. -since patient has been very adverse to any antipsychotics, she may be more amenable to Benzodiazepine medication - which could be helpful in a number of ways: anxiety (with her baseline anxiety d/o spectrum - PTSD, OCD tendencies etc ), insomnia (pt has not consistently been sleeping well, and notes she functions better with sleep), BZDs are also helpful for managing hypomania/dania , and BZD are also indicated for catatonia or catatonic-like symptoms whether due to medical or psychiatric etiology if there are any such concerns. Will increase ATIVAN to 1-2mg PO Q4hr PRN for anxiety/agitation/insomnia. If pt prefers IV admin, may call hospitalist to request adding this to order. -recheck labs and f/u on if there is any worsening of her medical status, as historically she has presented with encephalopathy related to severe anemia. Also she refused po Iron, preferring IV. -consider more closely monitoring I/O and nutritional status due to her issues around eating -will change Melatonin to 3-6mg PRN from scheduled, since patient has seemed to prefer having more choices. -behavioral health will continue to follow along; please call [facility] to contact me directly if needed Objective: Vital Signs Temp Pulse Resp BP Pulse Ox 37.1 C 105 H 16 101/81 H 96 04/14/18 13:09 04/14/18 13:09 04/14/18 13:09 04/14/18 13:09 04/14/18 13:09 Laboratory Results 04/13/18 04:42 04/12/18 05:05 04/13/18 04/14/18 04/15/18 05:59 05:59 05:59 Intake Total 750 140 Output Total 600 Balance 150 140 - Pending Discharge Pending Discharge Within 24 Hours: No Pending Discharge Within 48 Hours: No ICD10 Worksheet Patient Problems: Problems Problem Status Onset Altered mental status Acute Anemia Acute
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
[2018-04-14] MEDS ORDERED: OLANZapine 10 MG/2 ML VIAL ONE (20:26)
[2018-04-14] MEDS ORDERED: OLANZapine 10 MG/2 ML VIAL IM ONE (20:30)
[2018-04-14] MEDS: MELATONIN 3 MG TAB PO PRN (20:46)
[2018-04-14] MEDS: LORazepam 2 MG/ML INJ IVP PRN (20:49)
--- NOTE | 2018-04-14 20:57 | HOSPPROG ---
Hospitalist Progress Note Assessment/Plan: STAT team called and I am asked to attend urgently to patient's room. Patient found on floor in bathroom, screaming. This is her second STAT team today for similar presentation. Per nursing she sat down to the floor prior to lying down and there is no injury. Out of control psychotic behavior has been noted. Patient is not dealing well with her recent diagnosis of metastatic malignancy. Hospice appropriate, but she currently remains Full Cor since she has been unable to make a decision. TLC also at bedside. Her behavior is c/w psychosis. She is writing extensive equations on the floor with a marker that are non-sense. STAT 10mg IM Zyprexa administered. Will also have IV ativan available. Consider transfer to ICU for safety. For now we will see how she does with Zyprexa and Ativan, add a sitter and will need Roll Belt restraint. If continued lack of safety and extreme nursing care needs continue, consider transfer. No current indication for M1 hold. Chart reviewed regarding previous imaging. Colon mass with hepatic mets. No biopsy obtained as patient refused. Brain MRI with possible brain met. I think current presentation likely psych primary, but AMS could be related to brain met as well. Very difficult case. Will consult Palliative care to assist. CC time - 40 minutes Objective: Vital Signs Temp Pulse Resp BP Pulse Ox 37.1 C 105 H 16 101/81 H 96 04/14/18 13:09 04/14/18 13:09 04/14/18 13:09 04/14/18 13:09 04/14/18 13:09 Laboratory Results 04/13/18 04:42 04/12/18 05:05 04/13/18 04/14/18 04/15/18 05:59 05:59 05:59 Intake Total 750 140 Output Total 600 Balance 150 140 - Physical Exam Constitutional: chronically ill appearing, unkempt, other (screaming on floor) Eyes: PERRL Cardiovascular: No edema Respiratory: no respiratory distress Skin: no rashes or abrasions, no fluctuance, no induration Neurologic: No AAOx3 Psychiatric: encephalopathic, agitated, poor insight, poor judgement, No interacting appropriately ICD10 Worksheet Patient Problems: Problems Problem Status Onset Altered mental status Acute Anemia Acute
[2018-04-15] MEDS: LORazepam 2 MG/ML INJ IVP PRN (03:34)
[2018-04-15] MEDS ORDERED: OLANZapine 10 MG/2 ML VIAL IM ONE (07:27)
[2018-04-15] MEDS: FERROUS SULFATE 325 MG TAB PO SCH ×2 (09:38→20:49)
--- NOTE | 2018-04-15 16:27 | HOSPPROG ---
Hospitalist Progress Note Assessment/Plan: 52yo F with suspected metastatic GI cancer, iron deficiency anemia here for 3rd presentation in last 3 weeks for encephalopathy and anemia requiring PRBC transfusions. Had pressured speech, tangential thought processes, paranoia which significantly worsened afternoon of 04/13. These behaviors have waxed and waned over the last few days. Last night, she had 2 episodes requiring STAT team due to agitation and psychotic behavior. She was given olanzapine and lorazepam last night. This afternoon, she has more linear thought processes and appears to have decision making capacity. # Behavioral disturbance: Suspect poor coping of suspected cancer diagnosis has lead to brief psychotic episode. - Had lengthy discussion with patient re: anti-psychotics and benzodiazepines today. She is clearly adamant that she does not want any of these medications even if they help her anxiety and/or ability to make decisions. Will keep on PRN in case her condition escalates - Discussed again with psychiatry. No indication for M1 hold at moment. If she has additional episodes of severe agitation requiring pharmacologic restraints, would be reasonable to pursue M1 hold and transfer to ICU for higher level of care. - Continue melatonin 3-6mg PRN # Encephalopathy: This has previously improved after PRBC transfusions. Not clearly encephalopathic, just with odd behavior as above. - Recheck CBC, CMP in AM # Anemia: likely d/t slow GI loss although FOBT was negative during prior admission - CBC as above - Continue PO Fe supplementation # Suspected metastatic cancer: Likely gastrointestinal primary. Per Dr Fitzgerald her prognosis is 3 months without treatment - She is currently refusing a needle biopsy of her liver or colonoscopy ( again discussed today). She understands that this is limiting our full evaluation and treatment options - CEA indeterminate, ca-19-9 low - Consulting palliative care # Thrombocytosis: Likely d/t Fe defic anemia, possibly inflammation # Leukocytosis: Likely reactive in setting of malignancy # Dispo: Complicated. - Not meeting SNF criteria as she has been cleared by therapy services - pursuing long-term care (submitted medicaid conrado) - Will discuss with palliative care as to whether hospice services will be an option - Patient not wanting medical providers to discuss her current medical state with any friends/family, making it difficult for them to understand the situation and provide support Subjective: Upset this morning re: her getting medications last night taht she did not want. She states that the staff made her agitated and upset. Objective: Vital Signs Temp Pulse Resp BP Pulse Ox 36.6 C 93 14 112/67 96 04/15/18 08:21 04/15/18 08:21 04/15/18 08:21 04/15/18 08:21 04/14/18 13:09 Laboratory Results 04/15/18 09:25 04/12/18 05:05 04/14/18 04/15/18 04/16/18 05:59 05:59 05:59 Intake Total 140 0 Balance 140 0 - Physical Exam Constitutional: cachectic Ears, Nose, Mouth, Throat: moist mucous membranes, hearing normal, ears appear normal, no oral mucosal ulcers Cardiovascular: regular rate and rhythym, no murmur, rub, or gallop Respiratory: no respiratory distress, no rales or rhonchi, clear to auscultation Skin: other (red marker drawings on hands) Psychiatric: thought process linear ICD10 Worksheet Patient Problems: Problems Problem Status Onset Altered mental status Acute Anemia Acute
--- NOTE | 2018-04-15 18:13 | ASMTCMCOM ---
CM Note CM Note Notes: Discussed case with Hospitalist, CTL and primary RN. Hospital medicine was able to speak with Domitila Lacey again today. The plan, at this time, is for hospitalist to check with patient and inquire one more time about medications - if patient refuses and becomes escalated again, TLC STAT will be called and possible M1 Hold initiated with a tx to ICU. This case continues to be challenging. [id number] submitted, awaiting approval from [facility]. The medical team agrees patient will be challenging for any SNF to manage. Another option could possibly be a plan that involved inpatient Hospice. Discussed this with Dr. Valera who agrees it may be good to consult with Palliative Care to assist with a plan like this (consult placed on 04/14). There is still some question on whether friend, Paddy, is really the MDPOA. The primary RN was going to request official paperwork. Patient goes in and out of decisional capacity, and the hospitalist feels that she does not have capacity at this time. CM will continue to follow. Plan: Remains TBD Date Signed: 04/15/2018 06:13 PM Electronically Signed By:Genesis Mills RN
[2018-04-15] MEDS: OLANZapine DISINTEGR 5 MG TAB PO PRN (20:49)
[2018-04-15] MEDS: MELATONIN 3 MG TAB PO PRN (20:49)
[2018-04-16] MEDS: MELATONIN 3 MG TAB PO PRN ×2 (02:13→20:27)
--- NOTE | 2018-04-16 09:14 | ASMTCMCOM ---
CM Note CM Note Notes: I have left a message for the Ethics Consultation Team this morning asking for a consult as this case is quite complex. Spoke with patient's primary RN yesterday evening who spoke with friend "ROSANA" Paddy. Paddy was asked to send over paperwork with proof of ROSANA, Paddy stated nothing was ever wrote down. At this time, wondering if we need to declare a medical proxy if provider still feels patient is unable to make medical decisions - I have asked Ethics to assist CM in navigating through this case. CM will follow. Date Signed: 04/16/2018 09:13 AM Electronically Signed By:Genesis Mills RN
[2018-04-16] MEDS ORDERED: GABAPENTIN 100 MG CAP PO ONE (13:30)
[2018-04-16] MEDS: FERROUS SULFATE 325 MG TAB PO SCH ×2 (14:45→20:27)
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
[2018-04-16] MEDS ORDERED: GABAPENTIN 100 MG CAP PO PRN (18:13)
[2018-04-16] MEDS ORDERED: OLANZapine DISINTEGR 5 MG TAB PO PRN ×2 (19:57→20:01)
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
[2018-04-17] MEDS: FERROUS SULFATE 325 MG TAB PO SCH ×2 (09:00→21:31)
--- NOTE | 2018-04-17 17:11 | ASMTCMCOM ---
CM Note CM Note Notes: Cassie from [facility] [phone] here to assess pt for LTC Medicaid. PT/OT have cleared pt and due to pt's behaviors, a SNF d/c may be difficult. Behavioral Health, Psychiatry, and Hospitalist continuing to follow. Ethics worked with pt yesterday and her friend Paddy will continue as her medical decision maker proxy. Pt's d/c plan unclear at this time. Date Signed: 04/17/2018 05:10 PM Electronically Signed By:DELMER Rome
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
[2018-04-17] MEDS: MELATONIN 3 MG TAB PO PRN (21:31)
[2018-04-18] MEDS: FERROUS SULFATE 325 MG TAB PO SCH ×2 (08:53→20:41)
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
[2018-04-18] MEDS: MELATONIN 3 MG TAB PO PRN (20:41)
[2018-04-19 08:47] LABS: PLATELET COUNT 723 10^3/uL (150-400)
[2018-04-19] MEDS: FERROUS SULFATE 325 MG TAB PO SCH ×2 (10:02→21:46)
[2018-04-19] MEDS ORDERED: OLANZapine 10 MG/2 ML VIAL IM PRN ×3 (10:52→20:11)
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
[2018-04-19] MEDS ORDERED: NS W/ 20 KCl/L 1,000 ML IV SCH (11:30)
[2018-04-19] MEDS: LORazepam 2 MG/ML INJ IVP PRN (11:44)
--- NOTE | 2018-04-19 12:16 | ASMTCMCOM ---
CM Note CM Note Notes: Pt placed on M1 hold and moved to the ICU today due to her disorganized behaviors and continuing agitation. Alerted her MDPOA Gene Wade and faxed him the [facility] paperwork filled out by ethics system consultant. Spoke with Maureen at [facility] ([phone]). She stated that pt meets criteris for LTC bed due to her mental state. She stated an OBRA coordinator will now evaluate pt for a level 2 PASRR. So far referral for LTC faxed to [facility] (no response), [facility] (No LTC beds), [facility] and [facility] (waiting until they are able to do an on-site visit.) The level 2 PASRR will likely not be completed until early next week. It is unclear if a SNF will be willing to take pt due to her behaviors. Cm will continue to follow. Plan: TBD Date Signed: 04/19/2018 12:15 PM Electronically Signed By:Dena Yin LCSW
[2018-04-19] MEDS ORDERED: LORazepam 1 MG TAB PO PRN (16:00)
[2018-04-19] MEDS ORDERED: OLANZapine DISINTEGR 5 MG TAB PO SCH ×3 (16:00→21:00)
[2018-04-19] MEDS ORDERED: LORazepam 2 MG/ML INJ IM PRN (17:28)
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
[2018-04-19] MEDS: CALCIUM CARBONATE 500 MG CHEWABLE TAB PO PRN (23:58)
[2018-04-20] MEDS: FERROUS SULFATE 325 MG TAB PO SCH ×2 (08:39→21:43)
[2018-04-20] MEDS: CALCIUM CARBONATE 500 MG CHEWABLE TAB PO PRN (08:39)
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
[2018-04-20] MEDS ORDERED: LORazepam 1 MG TAB PO PRN (13:41)
--- NOTE | 2018-04-20 16:40 | ASMTCMCOM ---
CM Note CM Note Notes: Patient's MDPOA called, Gene and had patient's brother Gerry on the phone. They were interested in questions regarding d/c planning. Gerry states he has room for [place] in his home in [place], [place]. Gerry's address is [facility] [place] [address] and his phone number is [phone]. Gerry would like to know when she is ready for d/c and he was informed we did not know exactly when that would be. He was informed patient will have to be medically stable before d/c.Gerry wanted to know what medically stable meant and he was told it was when her vitals were normal and the dr's determined she was medically stable. Gerry had questions about her anemia and wanted to discuss her diet. I let him know a nutrionist works with all the patients in the ICU and the Dr.'s were also involved in determining a patient's nutritional protocol. I encouraged Gerry to talk to his sister about adding him to the paperwork of people she wants to share information with and let them know I can continue the conversation with her MDPOA at this point in time. CM will follow. Date Signed: 04/20/2018 04:39 PM Electronically Signed By:oDreen Bello LCSW
--- NOTE | 2018-04-20 16:43 | ASMTCMCOM ---
CM Note CM Note Notes: Spoke with Luiza Cleary, an OBRA coordinator for level 2 [facility] ([phone]). She wanted to know when to come to evaluate. After consulting with Dr Lacey and CM Doreen Bello, it was decided that she should do the evaluation on Monday 04/23. [facility] will also evaluate pt for LTC bed placement on Monday. Spoke with pts Paddy WAYNE ([phone]). He stated that he has been in touch with pts employer, [employer]. They need to extend pts leave of absence and wanted o fax paperwork to be filled out and faxed back. Gave the paperwork from [employer] to Doreen Bello CM on ICU floor. Best DC plan for pt continues to be a prison care bed. If pt stabilizes on her new medication regime, it is likely that a facility will accept pt. At this time, pt is in agreement with plan. DC Plan: TBD Date Signed: 04/20/2018 04:43 PM Electronically Signed By:Dena Yin LCSW
--- NOTE | 2018-04-20 17:31 | HOSPPROG ---
Hospitalist Progress Note Assessment/Plan: Subjective Follow-up on anemia and suspected urinary tract infection. Ice patient about having any burning with urination or cloudy urine or frequency of urination and she denies all the symptoms. It was quite difficult to accomplish much medically as her is thought processes are quite disorganized and she often rambles in her speech and I have difficulty interject Ng. She does not seem to appreciate the severity of her current medical issues nor seem capable of managing the decisions in her medical care. Her case was reviewed with Dr. Lacey with Psychiatry. Objective Vital signs as detailed below Exam General-patient's room was darkened upon walking in. I did not enter much farther into her room past a couple feet into the door way as she seems somewhat uncomfortable with me entering the room. She was pleasant however in did converse with me but as stated above her speech was disorganized jumping from topic to topic and did mostly ramble not allowing me an opportunity to interject. Lungs-normal respiratory effort Abdomen-nondistended -no Wilson catheter in place Extremities-no significant pitting edema Labs as detailed below Assessment plan Psychotic disorder-appreciate Dr. Lacey' assistance on the case. Continue medical management per her recommendations. Metastatic cancer-suspected. It is suspect that she may have metastatic colon cancer based on CT imaging. She has not consented to colonoscopy or biopsy for further evaluation. In her current state I do not think she has capacity to make medical decisions. She apparently does have a power of prosecuting attorney but I have not seen that person here in the hospital assisting with her medical care. Also in her current state I cannot see her realistically proceeding with any sort of treatment for a suspected malignancy. Without treatment she may only have a few months to live but is somewhat difficult now we still do not have a definitive diagnosis on the malignancy. Dr. Fitzgerald did state previously that the persistent leukocytosis is consistent with end-stage disease in her case. I will attempt to make contact with her listed power of prosecuting attorney. I think as things progress with her our only option may be a hospice care. Anemia-iron deficiency. Continue iron supplementation. Continue to follow hemoglobin every few days for now. Leukocytosis-as above this may be a reflection of the end-stage metastatic cancer. Thrombocytopenia-likely secondary to iron deficiency. Objective: Vital Signs Temp Pulse Resp BP Pulse Ox 36.8 C 107 H 16 110/66 99 08/24/18 00:00 08/24/18 07:27 04/20/18 07:27 04/20/18 07:27 04/20/18 07:27 Laboratory Results 04/19/18 08:10 04/18/18 08:32 04/19/18 04/20/18 04/21/18 05:59 05:59 05:59 Intake Total 937 Output Total 2800 500 Balance -2800 437 ICD10 Worksheet Patient Problems: Problems Problem Status Onset Altered mental status Acute Anemia Acute
[2018-04-20] MEDS ORDERED: OLANZapine DISINTEGR 10 MG TAB PO SCH (21:00)
[2018-04-20] MEDS ORDERED: OLANZapine 10 MG/2 ML VIAL IM ONE (21:15)
[2018-04-20] MEDS: LORazepam 2 MG/ML INJ IVP PRN (23:10)
[2018-04-21] MEDS: CALCIUM CARBONATE 500 MG CHEWABLE TAB PO PRN (08:52)
[2018-04-21] MEDS: FERROUS SULFATE 325 MG TAB PO SCH ×2 (08:52→21:26)
--- NOTE | 2018-04-21 16:48 | HOSPPROG ---
Hospitalist Progress Note Assessment/Plan: Subjective Follow-up on suspected metastatic cancer. No acute events overnight. I did ask the patient about the possibility of a hospice consult and she seemed very open to this. Her thought process today again seem to me disorganized with rambling of her speech. It is hard for me to get a sense of how much she really understands her current medical condition. She did state that her power of deputy commonwealth's attorney resides in [place]. Objective Vital signs as detailed below Exam General-patient is sitting in chair in her room no acute distress not toxic- appearing but still thin and cachectic Lungs normal respiratory effort Extremities-no significant edema noted No new labs today Assessment and plan Psychotic disorder-appreciate Dr. Lacey' assistance on the case. Continue medical management per her recommendations. Metastatic cancer-suspected. It is suspect that she may have metastatic colon cancer based on CT imaging. She has not consented to colonoscopy or biopsy for further evaluation. In her current state I do not think she has capacity to make medical decisions. She apparently does have a power of deputy commonwealth's attorney but I have not seen that person here in the hospital assisting with her medical care. Also in her current state I cannot see her realistically proceeding with any sort of treatment for a suspected malignancy. Without treatment she may only have a few months to live but is somewhat difficult now we still do not have a definitive diagnosis on the malignancy. Dr. Fitzgerald did state previously that the persistent leukocytosis is consistent with end-stage disease in her case. I think as things progress with her our only option may be a hospice care. I did bring up the issue of hospice care today with the patient and she seemed willing to at least consider this as an option. We will discuss with other team members and plan on placing consultation request. Anemia-iron deficiency. Continue iron supplementation. Will hold further checks for now until consultation with hospice care. Leukocytosis-as above this may be a reflection of the end-stage metastatic cancer. Thrombocytopenia-likely secondary to iron deficiency. Objective: Vital Signs Temp Pulse Resp BP Pulse Ox 36.8 C 102 H 18 108/48 L 97 04/21/18 16:00 04/21/18 16:00 04/21/18 16:00 04/21/18 16:00 04/21/18 16:00 Laboratory Results 04/19/18 08:10 04/18/18 08:32 04/20/18 04/21/18 04/22/18 05:59 05:59 05:59 Intake Total 937 500 960 Output Total 500 500 900 Balance 437 0 60 ICD10 Worksheet Patient Problems: Problems Problem Status Onset Altered mental status Acute Anemia Acute
[2018-04-21] MEDS: LORazepam 0.5 MG TAB PO PRN (17:21)
[2018-04-21] MEDS: OLANZapine DISINTEGR 5 MG TAB PO SCH (21:26)
[2018-04-21] MEDS: MELATONIN 3 MG TAB PO PRN (21:33)
[2018-04-22] MEDS: CALCIUM CARBONATE 500 MG CHEWABLE TAB PO PRN ×2 (00:47→05:21)
[2018-04-22] MEDS: LORazepam 0.5 MG TAB PO PRN (05:21)
[2018-04-22] MEDS: FERROUS SULFATE 325 MG TAB PO SCH (14:57)
--- NOTE | 2018-04-22 18:10 | HOSPPROG ---
Hospitalist Progress Note Assessment/Plan: Subjective Follow-up on suspected metastatic cancer. No acute events overnight. I did review her case today with Dr. Lacey as well as with case management. We discussed that we would proceed with an ethics consult as well as hospice consult. Objective Vital signs as detailed below Exam General-patient is sitting in chair in her room no acute distress not toxic- appearing but still thin and cachectic Lungs normal respiratory effort Extremities-no significant edema noted No new labs today Assessment and plan Psychotic disorder-appreciate Dr. Lacey' assistance on the case. Continue medical management per her recommendations. Metastatic cancer-suspected. It is suspect that she may have metastatic colon cancer based on CT imaging. She has not consented to colonoscopy or biopsy for further evaluation. In her current state I do not think she has capacity to make medical decisions. She apparently does have a power of collections attorney but I have not seen that person here in the hospital assisting with her medical care. Also in her current state I cannot see her realistically proceeding with any sort of treatment for a suspected malignancy. Without treatment she may only have a few months to live but is somewhat difficult now we still do not have a definitive diagnosis on the malignancy. Dr. Fitzgerald did state previously that the persistent leukocytosis is consistent with end-stage disease in her case. At this time I recommend proceeding with hospice consult as well as ethics consult. Anemia-iron deficiency. Continue iron supplementation. Will hold further checks for now until consultation with hospice care. Leukocytosis-as above this may be a reflection of the end-stage metastatic cancer. Thrombocytosis-likely secondary to iron deficiency. Objective: Vital Signs Temp Pulse Resp BP Pulse Ox 36.7 C 94 14 100/63 96 04/22/18 16:00 04/22/18 16:00 04/22/18 16:00 04/22/18 16:00 04/22/18 16:00 Laboratory Results 04/19/18 08:10 04/18/18 08:32 04/21/18 04/22/18 04/23/18 05:59 05:59 05:59 Intake Total 500 2290 Output Total 500 2100 1250 Balance 0 190 -1250 ICD10 Worksheet Patient Problems: Problems Problem Status Onset Altered mental status Acute Anemia Acute
--- NOTE | 2018-04-22 19:08 | ASMTCMCOM ---
CM Note CM Note Notes: Reviewed chart. Per ICU rounds and Dr. Fernandez, pt with terminal metastatic cancer. Pt with increased delirium, flight of ideas. Per Dr. Fernandez, pt has become very difficult to assess for decisional capacity. Recommendation made for concurrent Hospice and Ethics consultations. LVM for Ethics and Palliative teams to follow up on Monday04/23/18. Hospice evaluation/referral sent to [facility]; awaiting response. The pt named a male friend Paddy as her POA on 04/16/18. There is some question as to how long she has known this individual and if he is the most appropriate advocate on her behalf. There is also some question as to her decisional capacity at that time. The pt's brothers out of state have expressed an interest in her care and would like to participate in the decision making process. Dr. Fernandez to reach out to Gene and the pt's brothers today. CM awaiting update. Discharge needs remain unclear at this time. CM will continue to follow and assist in Ethics/Palliative and Hospice consults. Date Signed: 04/22/2018 07:08 PM Electronically Signed By:Rose Lynch RN
[2018-04-23] MEDS: OLANZapine DISINTEGR 5 MG TAB PO SCH ×2 (00:19→21:00)
[2018-04-23] MEDS: FERROUS SULFATE 325 MG TAB PO SCH ×4 (00:19→20:25)
[2018-04-23] MEDS: LORazepam 0.5 MG TAB PO PRN ×2 (11:17→20:25)
--- NOTE | 2018-04-23 17:00 | HOSPPROG ---
Hospitalist Progress Note Assessment/Plan: Subjective Follow-up suspected metastatic cancer and anemia. No acute events overnight. I did talk with the patient that we would check her blood counts today for reassessment. I was able to talk with Tony who is listed as the patient's be primary medical contact. I was also able to talk with Catracho who is her 2. Listed medical contact who lives in [place]. I also placed a call in with gland shaggy the patient's brother who currently lives in [place]. I gave them an update as to her current clinical status. I also discussed with them that it is my recommendation that we proceed with hospice and ethics consult. They did not express opposition to this recommendation. They did discuss that they were considering moving her out to [place] and I encouraged them that if they were strongly considering this that they may want to start acting on this sooner rather than later considering the expected progressive clinical decline as she will likely have. I did discuss that they may want to consider doing this by road travel rather than air travel considering her anemia and fragility. Her case was also reviewed today with the psychiatry team as well as the case management team. Objective Vital signs as detailed below Exam General-patient is sitting in chair in her room no acute distress not toxic- appearing but still thin and cachectic she was resting comfortably when I 1st came into the room but arousable and cooperative Lungs-normal respiratory effort Extremities-no significant edema noted Labs as detailed below Assessment and plan Psychotic disorder-appreciate Dr. Lacey' assistance on the case. Continue medical management per her recommendations. Metastatic cancer-suspected. It is suspect that she may have metastatic colon cancer based on CT imaging. She has not consented to colonoscopy or biopsy for further evaluation. In her current state I do not think she has capacity to make medical decisions. Also in her current state I cannot see her realistically proceeding with any sort of treatment for a suspected malignancy. Without treatment she may only have a few months to live but is somewhat difficult now we still do not have a definitive diagnosis on the malignancy. Dr. Fitzgerald did state previously that the persistent leukocytosis is consistent with end-stage disease in her case. At this time I recommend proceeding with hospice consult as well as ethics consult. I have talked with her list power of prosecuting attorney Tony as well as her brother Catracho who lives in [place] about this plan. I will also be talking with her brother Gerry in [place]. Anemia-iron deficiency. Continue iron supplementation. Hemoglobin 7.6 today. Leukocytosis-as above this may be a reflection of the end-stage metastatic cancer. Thrombocytosis-secondary to iron deficiency. Objective: Vital Signs Temp Pulse Resp BP Pulse Ox 36.4 C 98 20 107/66 99 04/23/18 14:31 04/23/18 14:31 04/23/18 14:31 04/23/18 14:31 04/23/18 08:00 Laboratory Results 04/23/18 13:35 04/18/18 08:32 04/22/18 04/23/18 04/24/18 05:59 05:59 05:59 Intake Total 2290 1530 Output Total 2100 1250 1325 Balance 190 280 -1325 ICD10 Worksheet Patient Problems: Problems Problem Status Onset Altered mental status Acute Anemia Acute
--- NOTE | 2018-04-23 17:17 | ASMTCMCOM ---
CM Note CM Note Notes: 04/23/2018 Case Management Note Multiple discussions regarding patient today with RN, Montse Loredo, Dr. Fernandez, Palliative Care, Ethics and the Chaplains. Please see ethics note for details. Long time friend Paddy WAYNE lives in [facility] [phone]. Pt brother Catracho lives [place] [phone] Pt brother Gerry lives in [place] [phone] Phone call from Lorraine Engel PASSR coordinator. Lorraine Engel is not triggering a level II PASSR, instead Betty is writing a hospice exemption for 6 months. Phone call to Paddy WAYNE to discuss d/c options. Discussed hospice order. Gene in agreement. Faxed referrals to [facility] and [facility]. Discussed with Yu at [facility]. Yu to discuss if GIP is appropriate with [facility] vice president medical affairs and will contact manager case management in the morning. Faxed referral to [facility]. [facility] to meet pt at the same time as [facility] tomorrow to assess if GIP in a alf facility ([facility] or [facility]) is possible. Faxed updates to multiple SNF notifying of non triggering PASSR. [facility] and [facility] to assess tomorrow. Discussed with Myles at [facility] who is considering pt but concerned re: pt behaviors. Attempted to leave voicemail for the [facility] in [place] but mailbox was full and not taking messages. [facility] declined patient. At [facility]'s request called brother Gerry in [place]. Gerry initially offerred to have pt move in with him, but as it became clear the level of care the pt is requiring, Gerry is hesitant. Discussed pt will need 24/7 care and that unskilled care is an out of pocket expense. At Gerry's request with Paddy's permission faxed referrals to [place] SNF [place] [phone]. Case Management will need to sort out the Medicaid application process in [place]. Encouraged Paddy to have a conference call with Kristy to create a list of questions for MD about prognosis and anticipated recovery. Encouraged Paddy and Gerry to contact an trial attorney to discuss process for designating a financial power of trial attorney. Case Management d/c poc: TBD Case Management to follow. Date Signed: 04/23/2018 05:16 PM Electronically Signed By:Shabnam Negrete RN
[2018-04-23] MEDS: MELATONIN 3 MG TAB PO PRN (20:25)
[2018-04-24] MEDS: LORazepam 0.5 MG TAB PO PRN ×2 (00:37→05:20)
[2018-04-24] MEDS: FERROUS SULFATE 325 MG TAB PO SCH ×2 (09:02→21:51)
--- NOTE | 2018-04-24 17:08 | ASMTCMCOM ---
MATIAS Note MATIAS Note Notes: [facility], [place], the director of the inpatient hospice center in [place] participated in phone conference with Paddy WAYNE and myself, MATIAS. Paddy would like to ask questions of the psychiatrist and the physician who determined patient may be experiencing some of her confusion due to the cancer which has metastisized to her brain. Contacted Dr. Lacey who agrees to talk to Paddy and answer any questions he may have. Spoke with Dr. Damon, Hospitalist and he feels patient will need to go to Behavioral Health due to her refusal to take any medications. If patient can be stabilized there and possibly certed for medication administration, he then feels placement in a care home will be more successful. Discussed this with Dr. Lacey who will follow up with a doc to doc discussion with Dr. Damon. D/C plan is still evolving. Possible option is patient placed back on an M1 hold and transferred to behavioral health unit where they can administer "emergency medications and then proceed to the certification process if necessary. When patient stable on meds, then transfer to SNF with a hospice team that can support her care there. However, this is pending the physician consultation and discussion of any options with the patient's ROSANA. MATIAS will follow. Date Signed: 04/24/2018 05:08 PM Electronically Signed By:Doreen Belol LCSW
--- NOTE | 2018-04-24 18:41 | HOSPPROG ---
Hospitalist Progress Note Assessment/Plan: DIAGNOSES: * psychotic disorder, uncertain if primary or secondary to medical illness * Severe and debilitating at this time * Interfering significantly with ability to provide medical and nursing care for patient; patient does not have insight or decisional capacity * Patient at this time refusing to take medications to treat the symptoms * metastatic cancer as evidence by prior recent imaging studies including brain and liver Mets * severe anemia presumed due to metastatic disease; iron deficiency confirmed Seen by me today on hospitalist rounds and multidisciplinary rounds PLANS: * Ongoing care plan discussions have been extensive including [facility], patient's brother who is medical power of flagger, case management, palliative care team, Dr. Lacey from mental health team * At this point it sounds like the direction were moving is that she will probably end up going on hospice care given her unlikely ability to agree to care for her cancer or comply with all the complex monitoring for medications or procedures, and her unwillingness to treat her mental health issues; however the planned so far discussed included having her probably go to inpatient hospice care temporarily to get her to the point where her mental health issues are such that she could then be transferred to a residential facility on hospice care. At this point however as she is unwilling to take any treatment for her psychosis, it does not seem reasonable to me that we should expect that at the hospice care center they would be able to treat her in any way that would have her progressed to the point of being able to be cared for at a residential facility, as she has far too much need for snf care as well as residential attention. If this were to be the planned course of events, it would seem to me we might need to consider having her to cleared and competent and get a court order for her to take medication to get started on treatment of her psychosis. There has been discussion of whether her psychosis might be caused by medical issues as opposed to primary psychosis, however I do not really see any medical illness or any correctable metabolic defect that we can take a mat to try and improve her status. She has 1 relatively small cerebellar brain met which should not cause psychosis like this, there is no infection, and no other metabolic change. She is fairly anemic but I have never seen psychosis from anemia. I reviewed all of this with the special education case manager and nursing staff today and recommended that we have further discussions about plan of care particularly with the mental health team and the hospice team. SUBJECTIVE: The patient really is not able to tell me what her symptoms are, and redirect the conversation in many other directions when I try to ask her how she is doing Per my observations and discussion with nursing staff, the patient is not really at all able to cooperate with nursing care interventions, and has been declining all medications at this time OBJECTIVE Vitals reviewed: Stable overall Casino Duty Manager, my review: Sinus Exam: alert know she is in the hospital, knows her name, very tangential, agitated, with bizarre ideation, fairly paranoid, does not appear to be hallucinating No tremor, no other neurologic signs She will not allow really any other physical examination at this time iv site ok Objective: Vital Signs Temp Pulse Resp BP Pulse Ox 37.2 C 74 16 102/59 L 95 04/24/18 16:00 04/24/18 08:00 04/24/18 16:00 04/24/18 16:00 04/23/18 20:21 Laboratory Results 04/23/18 13:35 04/18/18 08:32 04/23/18 04/24/18 04/25/18 06:59 06:59 06:59 Intake Total 1530 90 410 Output Total 1250 4 900 Balance 280 -1935 -490 - Time Spent With Patient Time Spent with Patient: greater than 35 minutes Time Spent with Patient: Greater than 35 minutes spent on this patients care, greater than 50% of time spent counseling, educating, and coordinating care regarding the above mentioned plan. ICD10 Worksheet Patient Problems: Problems Problem Status Onset Altered mental status Acute Anemia Acute
[2018-04-24] MEDS ORDERED: OLANZapine DISINTEGR 5 MG TAB PO PRN (18:53)
[2018-04-24] MEDS ORDERED: LORazepam 1 MG TAB PO SCH (21:00)
[2018-04-24] MEDS: MELATONIN 3 MG TAB PO PRN (21:51)
[2018-04-24] MEDS: CALCIUM CARBONATE 500 MG CHEWABLE TAB PO PRN (22:01)
[2018-04-25] MEDS: CALCIUM CARBONATE 500 MG CHEWABLE TAB PO PRN ×2 (08:47→23:49)
[2018-04-25] MEDS: FERROUS SULFATE 325 MG TAB PO SCH ×2 (10:37→21:31)
--- NOTE | 2018-04-25 11:39 | HOSPPROG ---
Hospitalist Progress Note Assessment/Plan: #Psychotic disorder with Acute Psychosis * Severe and debilitating at this time * Interfering significantly with ability to provide medical and nursing care for patient; patient does not have insight or decisional capacity * Patient at this time refusing to take medications to treat the symptoms * #Possible UTI: Resolved. There are no indications for abx at this time. She was treated with Rocephin # Anemia: due to metastatic disease and iron deficiency - Continue PO Fe supplementation -There are no indications for a blood transfusion at this time -This is not the cause of her psychiatric illness # Suspected metastatic cancer: Likely gastrointestinal primary. Per Dr Fitzgerald her prognosis is 3 months without treatment - She is currently refusing a needle biopsy of her liver or colonoscopy. She understands that this is limiting our full evaluation and treatment options - CEA indeterminate, ca-[id number] low # Thrombocytosis: resolved. # Leukocytosis: resolved PLANS: The patient does not have any reversible non psychiatrical causes She does not have decisional capacity. She cannot answer or focus on simple questions such as "why are you hospitalized", "Why are you upset". I dont think that she would tolerated inpatient hospice until her psychiatrical needs are stabilized first I discussed the above with Dr. Lacey Subjective: she knows that she is in the hospital. She remembers that Lori seen her 2 other times. She has rapid speech. she denies cp or sob Objective: Vital Signs Temp Pulse Resp BP Pulse Ox 36.7 C 99 18 97/62 L 92 04/25/18 07:56 04/25/18 07:56 04/25/18 07:56 04/25/18 07:56 04/25/18 07:56 Laboratory Results 04/23/18 13:35 04/18/18 08:32 04/24/18 04/25/18 04/26/18 05:59 05:59 05:59 Intake Total 90 910 Output Total 2024 Balance -193 10 - Time Spent With Patient Time Spent with Patient: greater than 35 minutes Time Spent with Patient: Greater than 35 minutes spent on this patients care, greater than 50% of time spent counseling, educating, and coordinating care regarding the above mentioned plan. - Physical Exam Constitutional: chronically ill appearing Eyes: PERRL Ears, Nose, Mouth, Throat: moist mucous membranes Cardiovascular: regular rate and rhythym, No edema Respiratory: no respiratory distress Gastrointestinal: normoactive bowel sounds, soft, non-tender abdomen Skin: warm Neurologic: No AAOx3 Psychiatric: encephalopathic Lymph, Heme, Immunologic: No petechiae ICD10 Worksheet Patient Problems: Problems Problem Status Onset Altered mental status Acute Anemia Acute
[2018-04-25] MEDS ORDERED: OLANZapine DISINTEGR 5 MG TAB PO PRN (17:49)
[2018-04-25] MEDS ORDERED: LORazepam 1 MG TAB PO PRN ×2 (17:49→21:00)
[2018-04-25] MEDS ORDERED: LORazepam 1 MG TAB PO SCH (21:00)
[2018-04-25] MEDS: OLANZapine DISINTEGR 5 MG TAB PO SCH (21:31)
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
--- NOTE | 2018-04-26 11:45 | HOSPPROG ---
Hospitalist Progress Note Assessment/Plan: 52 yo F with suspected metastatic cancer and acute psychosis #Psychotic disorder with Acute Psychosis * Severe and debilitating at this time * Interfering significantly with ability to provide medical and nursing care for patient; patient does not have insight or decisional capacity * Patient at this time refusing to take medications to treat the symptoms * Psychiatry following but ultimate dispo remains challenging, she would benefit from IP psych however needs to be in a facility comfortable managing her medical issues as well #Possible UTI: Resolved. There are no indications for abx at this time. She was treated with Rocephin # Anemia: due to metastatic disease and iron deficiency - Continue PO Fe supplementation -she has been transfused total of 4 units since arrival, last on 04/25 # Suspected metastatic cancer: Likely gastrointestinal primary. Per Dr Fitzgerald her prognosis is 3 months without treatment - She is currently refusing a needle biopsy of her liver or colonoscopy, ability to provide treatment compromised by mental illness - CEA indeterminate, ca-19-9 low # Thrombocytosis: resolved. # Leukocytosis: resolved # IP status # dispo is pending, psych is looking into other psychiatric facilities that might be able to serve her Subjective: no signficant overnight events, remains confused/psychotic Objective: Vital Signs Temp Pulse Resp BP Pulse Ox 36.6 C 96 14 116/59 L 97 04/26/18 08:00 04/26/18 08:00 04/26/18 08:00 04/26/18 08:00 04/26/18 08:00 Microbiology 04/21/18 09:55 Urine Culture - Final Unspecified Gardnerella Vaginalis Laboratory Results 04/26/18 08:40 04/26/18 08:40 04/25/18 04/26/18 04/27/18 05:59 05:59 05:59 Intake Total 910 400 Output Total 900 Balance 10 400 full physical exam declined patient appears confused/psychotic - Time Spent With Patient Time Spent with Patient: greater than 35 minutes Time Spent with Patient: Greater than 35 minutes spent on this patients care, greater than 50% of time spent counseling, educating, and coordinating care regarding the above mentioned plan. ICD10 Worksheet Patient Problems: Problems Problem Status Onset Anemia Acute Altered mental status Acute
[2018-04-26] MEDS: FERROUS SULFATE 325 MG TAB PO SCH ×2 (14:09→19:32)
[2018-04-26 17:18] LABS: PLATELET COUNT 712 10^3/uL (150-400)
[2018-04-26] MEDS: OLANZapine DISINTEGR 5 MG TAB PO SCH (19:32)
[2018-04-27] MEDS ORDERED: LORazepam 2 MG/ML INJ IVP ONE (04:34)
[2018-04-27] MEDS ORDERED: HALOPERIDOL LACT 5 MG/ML INJ IVP ONE (04:34)
--- NOTE | 2018-04-27 05:29 | HOSPPROG ---
Hospitalist Progress Note Assessment/Plan: Hospitalist night float note Case discussed with Dr. Lacey early this morning with concerns the patient is decompensating overnight. Patient has not slept in the last 2 days no more than 45 min and has not been eating. Patient has been increasingly confused, restless overnight. She is no longer redirectable per RN she has not been aggressive or agitated but she is clearly been having less organized thinking and restlessness. Additionally she has been having intermittent crying fits and has been talking about going to see her [facility] For herbal medicines after she has been cryogenically frozen. Patient MD MAY Thomason previously communicated with RN also with concerns that her thoughts were last coordinated as well. Patient typically has been very aware of staff names and recollection of faces however at this time she reports "I don't know who any of you are!" Patient last dose of Ativan was given on 04/24/2018 and her last dose of Zyprexa sometime last week. The last several days patient has been refusing any sedatives or antipsychotic medications previously citing they were poison. Vital signs-reviewed. General-patient in no acute distress. She is lying on the recliner. I last saw this patient on admission and she would be tangential and rambling but redirectable and able to communicate her thought process at this time patient is not able to follow any kind of conversation, is no longer redirectable, and rambles nonsensically. She is not very cooperative during the interview and covers her head and continues to ramble under the blanket. Psych - patient unable/unwilling to answer questions of orientation. She cannot recognize staff or names. Concerned that patient psychosis has potentially transition to delirium ( related to sleep deprivation or ICU delirium) versus metabolic encephalopathy . Patient is quite frail and thin in with limited physical reserves given diagnosis. MRI of the brain completed on 03/24/2018 did show a nonspecific lesion that potentially could be a metastasis. Patient's laboratory studies from 04/26/2018 were reviewed her anemia is low but stable. Additionally her sodium has improved to normal her potassium slightly increased to 5.0. Laboratory Tests 04/27/18 04/27/18 05:10 05:10 Hgb 7.7 L Hct 25.7 L Sodium 139 Potassium 3.8 Chloride 108 Carbon Dioxide 26 Anion Gap 5 L BUN 13 Creatinine 0.4 L Estimated GFR > 60 Glucose 74 Calcium 7.5 L Phosphorus 4.9 H Magnesium 1.8 Total Bilirubin 0.6 AST 11 L ALT 20 Alkaline Phosphatase 68 Total Protein 5.0 L Albumin 2.2 L Patient was initially amenable to taking oral Ativan and Zyprexa Zydis however after putting them in her mouth she quickly spasm out. Zyprexa was mostly undissolved. Plan: Given patient's decompensation and after further discussion with Dr. Lacey who was felt appropriate to give the patient IV options of medications that she was amenable to placement of IV and lab draw. 2 mg of Ativan and 2.5 mg Haldol was ordered IV. Additionally once patient was less restless I requested the RN obtain a tele strip if patient would not tolerate telemetry monitoring to evaluate her QT. Dr. Lacey will visit with patient tomorrow. Objective: Vital Signs Temp Pulse Resp BP Pulse Ox 36.5 C 87 20 94/57 L 95 04/27/18 05:15 04/27/18 05:15 04/27/18 05:15 04/27/18 05:15 04/27/18 05:15 Laboratory Results 04/27/18 05:10 04/25/18 04/26/18 04/27/18 05:59 05:59 05:59 Intake Total 910 400 750 Output Total 900 Balance 10 400 750 ICD10 Worksheet Patient Problems: Problems Problem Status Onset Altered mental status Acute Anemia Acute
--- NOTE | 2018-04-27 11:41 | HOSPPROG ---
Hospitalist Progress Note Assessment/Plan: # acute encephalopathy - reportedly had lost decisional capacity; Gene is her MDPOA; her brothers are also involved - part of her delirium i believe is due to lack of sleep - will continue ativan and zyprexa currently - i agree with Dr Lacey that this does not seem to be a primary psychiatric disorder (at least on my last evaluation) - check paraneoplastic panel today - consider reimaging with brain MRI soon # anemia - likely d/t slow GI loss - has received 4U PRBC - recheck tomorrow # thrombocytosis - likely d/t Fe defic anemia, possibly inflammation # suspected metastatic cancer - per Dr Fitzgerald her prognosis is 3 months without treatment - she is currently refusing a needle biopsy of her liver - she understands she cannot get definitive treatment without this - CEA indeterminate, ca-19-9 low # possible UTI - treated with rocephin # dispo - currently evaluating for SNF - if SNF unavailable she could stay at her friend Robert's place (with home care) - would plan on biweekly CBCs - if hgb<8 transfuse as outpatient at [facility] (Dr Fitzgerald aware and accepting of this plan, Dr Downey also involved) - she should continue IV Fe if available at SNF - otherwise needs PO Subjective: patient sleeping; not awakened as she had been delirious overnight and received haldol and ativan Objective: Vital Signs Temp Pulse Resp BP Pulse Ox 36.2 C 75 18 90/58 L 100 04/27/18 08:00 04/27/18 08:00 04/27/18 08:00 04/27/18 08:00 04/27/18 08:00 Laboratory Results 04/27/18 05:10 04/27/18 05:10 04/26/18 04/27/18 04/28/18 05:59 05:59 05:59 Intake Total 400 950 Balance [address] Lcaey - Time Spent With Patient Time Spent with Patient: greater than 35 minutes Time Spent with Patient: Greater than 35 minutes spent on this patients care, greater than 50% of time spent counseling, educating, and coordinating care regarding the above mentioned plan. - Physical Exam Constitutional: other (sleeping, comfortable) ICD10 Worksheet Patient Problems: Problems Problem Status Onset Anemia Acute Altered mental status Acute
[2018-04-27] MEDS: FERROUS SULFATE 325 MG TAB PO SCH ×2 (12:37→21:38)
--- NOTE | 2018-04-27 17:17 | ASMTCMCOM ---
CM Note CM Note Notes: Several meetings were held in patient's behalf. The current plan is to medicate patient with Haldol and Ativan to help her get badly needed rest since she is not sleeping. Melissa Heredia is in touch with the patient's brothers and there is discussion of them coming to [place], though nothing has been confirmed. A test has been ordered, paraneal plastic panel to determine if the cancer is involved with the confusion patient is experiencing.Two options being considered is having her brothers take her back home with them and the other returns to the original plan with patient going to SNF with Hospice support. However, D/C plan remains TBD. Melissa Heredia will continue to be involved with this case. CM will follow. Date Signed: 04/27/2018 05:17 PM Electronically Signed By:Doreen Bello LCSW
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
[2018-04-27] MEDS ORDERED: OLANZapine DISINTEGR 5 MG TAB PO SCH (21:00)
[2018-04-27] MEDS ORDERED: LORazepam 1 MG TAB PO SCH (21:00)
[2018-04-27] MEDS: LORazepam 2 MG/ML INJ IVP SCH (21:47)
[2018-04-27] MEDS: HALOPERIDOL LACT 5 MG/ML INJ IVP SCH (21:47)
[2018-04-27] MEDS: MELATONIN 3 MG TAB PO PRN (21:52)
[2018-04-28 05:21] LABS: PLATELET COUNT 646 10^3/uL (150-400)
[2018-04-28] MEDS: HALOPERIDOL LACT 5 MG/ML INJ IVP SCH ×2 (10:56→21:25)
[2018-04-28] MEDS: LORazepam 2 MG/ML INJ IVP SCH ×2 (10:56→21:24)
[2018-04-28] MEDS: FERROUS SULFATE 325 MG TAB PO SCH ×2 (10:58→21:24)
--- NOTE | 2018-04-28 16:05 | HOSPPROG ---
Hospitalist Progress Note Assessment/Plan: # acute encephalopathy - currently does not appear to have decisional capacity; Gene is her MDPOA; her brothers are also involved - Gene is in agreement with continuing scheduled haldol and ativan IV for now - paraneoplastic panel pending - consider reimaging with brain MRI soon # anemia - likely d/t slow GI loss - has received 4U PRBC - will need transfusion soon # thrombocytosis - likely d/t Fe defic anemia, possibly inflammation # suspected metastatic cancer - per Dr Fitzgerald her prognosis is 3 months without treatment - she is currently refusing a needle biopsy of her liver - she understands she cannot get definitive treatment without this - CEA indeterminate, ca-19-9 low # possible UTI - treated with rocephin # dispo - remains challenging; CM involved Subjective: patient quite sleepy when i am seeing her; Objective: Vital Signs Temp Pulse Resp BP Pulse Ox 36.8 C 93 12 101/63 100 04/28/18 11:28 04/28/18 11:28 04/28/18 11:28 04/28/18 11:28 04/28/18 11:28 Laboratory Results 04/28/18 04:45 04/27/18 05:10 04/27/18 04/28/18 04/29/18 05:59 05:59 05:59 Intake Total 950 2240 300 Output Total 1400 1000 Balance 950 840 -700 - Time Spent With Patient Time Spent with Patient: greater than 25 minutes Time Spent with Patient: Greater than 25 minutes spent on this patients care, greater than 50% of time spent counseling, educating, and coordinating care regarding the above mentioned plan. - Physical Exam Constitutional: other (somnolent) ICD10 Worksheet Patient Problems: Problems Problem Status Onset Anemia Acute Altered mental status Acute
[2018-04-28] MEDS: MELATONIN 3 MG TAB PO PRN (21:24)
[2018-04-29] MEDS: FERROUS SULFATE 325 MG TAB PO SCH ×2 (08:31→19:58)
[2018-04-29] MEDS: LORazepam 2 MG/ML INJ IVP SCH (08:32)
--- NOTE | 2018-04-29 10:51 | HOSPPROG ---
Hospitalist Progress Note Assessment/Plan: # acute encephalopathy - likely precipitated by dania, currently quite sedated from ativan and haldol - will cont haldol and ativan tonight, but hols in the am to allow her to awake better - she does not appear to have decisional capacity at this point - Gene is in agreement with continuing scheduled haldol and ativan IV for now - paraneoplastic panel pending - consider MRI soon # anemia - likely d/t slow GI loss - recheck H/H today - has received 4U PRBC - will need transfusion soon # thrombocytosis - likely d/t Fe defic anemia, possibly inflammation # suspected metastatic cancer - per Dr Fitzgerald her prognosis is 3 months without treatment - she is currently refusing a needle biopsy of her liver - she understands she cannot get definitive treatment without this - CEA indeterminate, ca-19-9 low # possible UTI - treated with rocephin # dispo - remains challenging; CM involved Subjective: somnolent today, but more awake than yesterday Objective: Vital Signs Temp Pulse Resp BP Pulse Ox 36.8 C 80 12 92/49 L 95 04/29/18 08:23 04/29/18 08:23 04/29/18 08:23 04/29/18 08:23 04/29/18 08:23 Laboratory Results 04/28/18 04:45 04/27/18 05:10 04/28/18 04/29/18 04/30/18 05:59 05:59 05:59 Intake Total 2240 1100 Output Total 1400 3200 400 Balance 840 -2100 -400 - Time Spent With Patient Time Spent with Patient: greater than 25 minutes Time Spent with Patient: Greater than 25 minutes spent on this patients care, greater than 50% of time spent counseling, educating, and coordinating care regarding the above mentioned plan. - Physical Exam Constitutional: no apparent distress, appears nourished, other (somnolent, sitting in chair) ICD10 Worksheet Patient Problems: Problems Problem Status Onset Anemia Acute Altered mental status Acute
[2018-04-29 14:13] LABS: PLATELET COUNT 708 10^3/uL (150-400)
[2018-04-29] MEDS: HALOPERIDOL LACT 5 MG/ML INJ IVP SCH ×2 (20:10→20:33)
[2018-04-29] MEDS: MELATONIN 3 MG TAB PO PRN (20:42)
[2018-04-29] MEDS ORDERED: LORazepam 2 MG/ML INJ IVP SCH (21:00)
[2018-04-30] MEDS: MELATONIN 3 MG TAB PO PRN (03:28)
[2018-04-30] MEDS: LORazepam 2 MG/ML INJ IVP PRN (03:33)
[2018-04-30 05:53] LABS: PLATELET COUNT 580 10^3/uL (150-400)
[2018-04-30] MEDS: FERROUS SULFATE 325 MG TAB PO SCH ×2 (08:17→23:40)
--- NOTE | 2018-04-30 15:11 | HOSPPROG ---
Hospitalist Progress Note Assessment/Plan: # acute encephalopathy - she is markedly improved today after a few days of scheduled haldol and ativan - i think that she currently has decisional capacity - she is agreeable to taking melatonin 3mg, ativan 1mg and zyprexa 10mg PO HS ; will use haldol IV if she does not sleep well - paraneoplastic panel pending - consider MRI soon, but i doubt that will offer an explanation at this point # suspected metastatic cancer - per Dr Fitzgerald her prognosis is 3 months without treatment - she agrees to discuss a liver biopsy tomorrow - CEA indeterminate, ca-19-9 low # anemia - likely d/t slow GI loss - has received 4U PRBC # thrombocytosis - likely d/t Fe defic anemia, possibly inflammation # possible UTI - treated with rocephin # dispo - remains challenging; CM involved Subjective: we discussed that she is doing better overall; she is sleeping better; she would like to discuss a needle biopsy tomorrow Objective: Vital Signs Temp Pulse Resp BP Pulse Ox 37.1 C 88 12 106/57 L 99 04/30/18 07:57 04/30/18 07:57 04/30/18 07:57 04/30/18 07:57 04/30/18 07:57 Laboratory Results 04/30/18 05:25 04/27/18 05:10 04/29/18 04/30/18 05/01/18 05:59 05:59 05:59 Intake Total 1100 1640 Output Total 3200 5090 628 Balance -6804 -910 -819 - Time Spent With Patient Time Spent with Patient: greater than 25 minutes Time Spent with Patient: Greater than 25 minutes spent on this patients care, greater than 50% of time spent counseling, educating, and coordinating care regarding the above mentioned plan. - Physical Exam Constitutional: no apparent distress, appears nourished ICD10 Worksheet Patient Problems: Problems Problem Status Onset Anemia Acute Altered mental status Acute
[2018-04-30] MEDS ORDERED: OLANZapine DISINTEGR 10 MG TAB PO SCH (21:00)
[2018-04-30] MEDS: LORazepam 1 MG TAB PO SCH (23:41)
[2018-04-30] MEDS: MELATONIN 3 MG TAB PO SCH (23:41)
[2018-05-01] MEDS ORDERED: LIDOCAINE 1% 300 MG/30 ML SDV ONE (04:15)
[2018-05-01] MEDS: FERROUS SULFATE 325 MG TAB PO SCH ×2 (11:19→22:56)
--- NOTE | 2018-05-01 14:09 | HOSPPROG ---
Hospitalist Progress Note Assessment/Plan: # acute encephalopathy - she is markedly improved today after a few days of scheduled haldol and ativan - i think that she currently has decisional capacity - she declined zyprexa last night, she would prefer to to take this; i agreed to this as she is currently agreeing to liver biopsy which is a high priority - she is agreeable to taking melatonin 3mg and ativan 1mg; will use haldol IV if she does not sleep well1 - paraneoplastic panel pending # suspected metastatic cancer - per Dr Fitzgerald her prognosis is 3 months without treatment - she agrees to liver biopsy today - would re-involve oncology when this is completed - CEA indeterminate, ca-19-9 low # anemia - likely d/t slow GI loss - has received 4U PRBC # thrombocytosis - likely d/t Fe defic anemia, possibly inflammation # possible UTI - treated with rocephin # dispo - still unclear; CM involved Subjective: muc more clear today; agreeable to liver biopsy Objective: Vital Signs Temp Pulse Resp BP Pulse Ox 37.2 C 74 12 110/64 93 05/01/18 08:00 05/01/18 08:00 05/01/18 08:00 05/01/18 08:00 05/01/18 08:00 Laboratory Results 04/30/18 05:25 04/27/18 05:10 04/30/18 05/01/18 05/02/18 05:59 05:59 05:59 Intake Total 1640 1400 Output Total 2550 2590 1400 Balance -910 -1190 -1400 - Time Spent With Patient Time Spent with Patient: greater than 35 minutes Time Spent with Patient: Greater than 35 minutes spent on this patients care, greater than 50% of time spent counseling, educating, and coordinating care regarding the above mentioned plan. - Physical Exam Constitutional: no apparent distress, other (conversant) ICD10 Worksheet Patient Problems: Problems Problem Status Onset Anemia Acute Altered mental status Acute
--- NOTE | 2018-05-01 14:43 | ASMTCMCOM ---
CM Note CM Note Notes: MATIAS spoke with Dr. Trujillo concerning patient's status today. He reports she is doing much better and is now capable of making her own decisions. She consented to a liver biopsy which will be performed tomorrow. CM to communicate with Melissa Heredia concerning change in patient's status and plan for discharge depending on biopsy results. Plan: Wait on biopsy results to determine dispo plan. TBD Date Signed: 05/01/2018 02:42 PM Electronically Signed By:Courtney Morgan LCSW
--- NOTE | 2018-05-01 15:51 | ASMTCMCOM ---
CM Note CM Note Notes: Had a long discussion with Darlene this morning. She is more lucid and conversant. On the subject of a plan for her health: she is amenable to a liver biopsy to identify the source/type of cancer. She said she will then hear all of the options for treatment. Her goal is to travel with her brothers in a semi-truck (her brother drives one). I am not sure how this plan fits into treatment. The last time she had a diagnosis of cancer was in her breast. The biopsy was positive and she decided against conventional treatment. She claims to have 'kicked' that cancer. The discharge plan for Darlene is still up in the air. I have asked the brothers to come to [place]. Both state they are willing but that was four days ago. I was able to update the MDPOA, Paddy, regarding the above, as well as the fact that patient is no longer in need of a sitter or in need of an ICU bed. Plan to move her to 3E or 1N. Date Signed: 05/01/2018 03:50 PM Electronically Signed By:Melissa Heredia RN
[2018-05-01] MEDS: [UNRECOGNIZED DRUG - OTHER] PO SCH (18:02)
[2018-05-01] MEDS: ARGININE PO SCH (18:02)
[2018-05-01] MEDS ORDERED: LORazepam 2 MG/ML INJ IVP PRN (22:15)
[2018-05-01] MEDS ORDERED: BISACODYL 10 MG SUPP PR PRN (22:16)
[2018-05-01] MEDS ORDERED: LACTULOSE 20 GM/30 ML UDCUP PO PRN (22:16)
[2018-05-01] MEDS ORDERED: POLYETHYLENE GLYCOL 3350 17 GM PKT PO PRN (22:16)
[2018-05-01] MEDS ORDERED: MAGNESIUM HYDROXIDE 30 ML UDCUP PO PRN (22:16)
[2018-05-01] MEDS ORDERED: LACTULOSE 200 GM in SODIUM CL IRRIG SOLUTION 700 ML PR PRN (22:17)
[2018-05-01] MEDS: LORazepam 1 MG TAB PO SCH (22:55)
[2018-05-01] MEDS: MELATONIN 3 MG TAB PO SCH (22:56)
[2018-05-01] MEDS: LORazepam 0.5 MG TAB PO PRN (22:56)
[2018-05-01] MEDS: HALOPERIDOL LACT 5 MG/ML INJ IVP PRN (23:10)
[2018-05-02] MEDS: HALOPERIDOL LACT 5 MG/ML INJ IVP PRN (04:52)
[2018-05-02 05:30] LABS: PLATELET COUNT 637 10^3/uL (150-400)
[2018-05-02] MEDS ORDERED: LIDOCAINE 1% 300 MG/30 ML SDV ONE ×2 (07:34→11:05)
[2018-05-02] MEDS: ARGININE PO SCH ×3 (07:58→18:07)
[2018-05-02] MEDS: [UNRECOGNIZED DRUG - OTHER] PO SCH ×3 (07:58→18:07)
[2018-05-02 08:09] LABS: INR 1.12 (0.83-1.16); PROTIME(PATIENT) 14.6 SEC (12.0-15.0)
[2018-05-02] MEDS: FERROUS SULFATE 325 MG TAB PO SCH ×2 (10:36→21:51)
[2018-05-02] MEDS: SENNOSIDES/DOCUSATE SODIUM TAB PO SCH ×2 (10:36→21:51)
[2018-05-02] MEDS ORDERED: MIDAZOLAM 2 MG/2 ML VIAL ONE (11:07)
[2018-05-02] MEDS ORDERED: fentaNYL 100 MCG/2 ML INJ ONE (11:08)
--- NOTE | 2018-05-02 11:59 | PDPROPOC ---
Sedation Plan of Care Sedation Plan of Care: vital signs stable, mental status noted, patient educated of risks, benefits, alternatives, patient can tolerate sedation ASA Classification: ASA 1 Planned drugs: other (no sedation unless patient changes mind mid procedure) Mallampati Score: Class 2 Mallampati Reference Image: Patient passed 3-3-2 rule?: Yes
[2018-05-02] MEDS ORDERED: oxyCODONE IR 5 MG TAB PO PRN (12:00)
--- NOTE | 2018-05-02 17:38 | ASMTCMCOM ---
CM Note CM Note Notes: Spoke to ROSANA Thomason, about discharge plan. He has received word from Jimena that Darlene cannot live with her. Paddy is checking with other people in [place]. He will call me before noon 05/03. The last resort will be for Darlene to stay at the [facility]. Case Management continues to follow. Date Signed: 05/02/2018 05:37 PM Electronically Signed By:Melissa Heredia RN
[2018-05-02] MEDS ORDERED: HALOPERIDOL 5 MG TAB PO PRN (18:07)
--- NOTE | 2018-05-02 18:13 | HOSPPROG ---
Hospitalist Progress Note Assessment/Plan: Assessment: 52 yo F p/w recurrent, acute encephalopathy 2/2 dania in the setting of stage IV malignancy Plan: # acute encephalopathy - recurrent, likely 2/2 malignancy dania, w/ disorganized behavior, tangential thinking, much of which has improved w/ scheduled ativan HS (to improve sleep) and PRN haldol -I agree w/ Dr. Trujillo, she appears to have decisional capacity and ability to complete ADLs, albeit she has persist delusional thinking and carries unusual beliefs -cont melatonin/ativan HS for sleep -use PO haldol if possible over IV, as she will be given PO PRN at discharge she is markedly improved today after a few days of scheduled haldol and ativan -paraneoplastic panel pending -appreciate psych consult, most recent 04/27 note reviewed # suspected stage IV malignancy - per Dr Fitzgerald her prognosis is 3 months without treatment, liver biopsy today so that patient able to receive prognostic counseling moving forward -will arrange for outpt [facility] f/u # anemia - likely d/t slow GI loss, has received 4U PRBC -cont iron PO # thrombocytosis - likely d/t Fe defic anemia, possibly inflammation # possible UTI - treated with rocephin diet. regular ppx. high risk, lovenox 40 advised code. full dispo. ADD 05/03, d/w patient and CM, counseled her that likely DC 05/03 and patient reports she wants to go to stay w/ friend, has some unrealistic ideas about where she would like to go from there Subjective: patient denies pain, reports she's been eating/sleeping/ambulating well Objective: Vital Signs Temp Pulse Resp BP Pulse Ox 36.6 C 102 H 14 110/57 L 95 05/02/18 15:52 05/02/18 15:52 05/02/18 15:52 05/02/18 15:52 05/02/18 15:52 Laboratory Results 05/02/18 04:55 04/27/18 05:10 05/01/18 05/02/18 05/03/18 05:59 05:59 05:59 Intake Total 1400 500 Output Total 2590 2900 1000 Balance -1190 -2400 -1000 PT 14.6 SEC (12.0-15.0) 05/02/18 04:55 INR 1.12 (0.83-1.16) 05/02/18 04:55 - Time Spent With Patient Time Spent with Patient: greater than 35 minutes Time Spent with Patient: Greater than 35 minutes spent on this patients care, greater than 50% of time spent counseling, educating, and coordinating care regarding the above mentioned plan. - Physical Exam Constitutional: no apparent distress, not in pain, cachectic, No uncomfortable Cardiovascular: regular rate and rhythym, no murmur, rub, or gallop Respiratory: no respiratory distress, no rales or rhonchi, clear to auscultation Gastrointestinal: normoactive bowel sounds, soft, non-tender abdomen, no palpable masses, No distension Neurologic: AAOx3 Psychiatric: not anxious, poor insight, other (tangential but redirectible, delusional thought process), No agitated ICD10 Worksheet Patient Problems: Problems Problem Status Onset Altered mental status Acute Anemia Acute
[2018-05-02] MEDS: MELATONIN 3 MG TAB PO SCH (21:55)
[2018-05-02] MEDS: LORazepam 1 MG TAB PO SCH (23:41)
[2018-05-03] MEDS ORDERED: FERROUS SULFATE 325 MG TAB PO SCH
[2018-05-03] MEDS ORDERED: MELATONIN 3 MG TAB PO SCH
[2018-05-03] MEDS ORDERED: SENNOSIDES/DOCUSATE SODIUM TAB PO SCH
[2018-05-03] MEDS ORDERED: HALOPERIDOL 1 MG TAB PO SCH
[2018-05-03 08:24] VITALS: BP 119/62
[2018-05-03] MEDS: FERROUS SULFATE 325 MG TAB PO SCH (09:03)
[2018-05-03] MEDS: [UNRECOGNIZED DRUG - OTHER] PO SCH ×2 (09:04→10:21)
[2018-05-03] MEDS: ARGININE PO SCH ×2 (09:04→10:21)
[2018-05-03] MEDS: SENNOSIDES/DOCUSATE SODIUM TAB PO SCH (09:06)
--- NOTE | 2018-05-03 16:20 | ASMTCMCOM ---
CM Note CM Note Notes: Pt d/cing zachary. Reservations made at [facility] in [place] for 4 nights. Conf # [id number]. [employer] was contacted. They will be providing Pt with 2 hot meals a day, Pt states that she will only eat food when it's hot and will not use a microwave. To account for the possibility that Pt will only eat one of the meals extra side dishes will be included (fruit cup...). Pt will not be receiving home [facility] services due to not qualifying for them. D/C Plan: [facility], [facility] Date Signed: 05/03/2018 04:19 PM Electronically Signed By:Erika Barros
--- NOTE | 2018-05-03 17:00 | PDDCSUM ---
Discharge Summary Discharge Summary: DISCHARGE SUMMARY FOLLOW-UP ITEMS: Liver biopsy results pending at time of discharge, to be followed up by Dr. Fitzgerald Paraneoplastic panel pending at time discharge to be followed up by Dr. Fitzgerald Patient instructed to follow up with [facility] next week DATE OF ADMISSION: 04/07/2018 DATE OF DISCHARGE: 05/03/2018 DISCHARGE DIAGNOSES: 1. Acute encephalopathy 2. Suspected stage IV malignancy 3. Iron deficient anemia and likely element of chronic inflammatory disease 4. Chronic thrombocytosis 5. Possible urinary tract infection 6. Suspected underlying personality disorder CONSULTATIONS: Psychiatry, oncology PROCEDURES / IMAGIN/5 liver biopsy CHIEF COMPLAINT: Acute dania SUBJECTIVE: Patient is feeling well at time discharge, she feels like her pain is well controlled, she is having bowel movements, she feels like her sleep as well controlled PHYSICAL EXAM ON DISCHARGE: Systolic blood pressure is 100-140, heart rate 90-100, afebrile overnight, satting well on room air, alert awake oriented x3, patient is conversant and directable, she is able to engage in meaningful conversation which is goal directed towards getting discharged today as well as post hospital care, she is somewhat tangential but less so than day prior, does not appear to be actively delusional, she makes good eye contact, her affect is very child-like LABS ON DISCHARGE: Hemoglobin 7.2, MCV 89, platelets 637,000 HOSPITAL COURSE BY PROBLEM: The patient presented with acute dania resulting in acute encephalopathy, demonstrating disorganized behavior, tangential thinking, seemingly an acute change from her previous baseline which was reportedly somewhat obsessive compulsive with an anxiety mood element, but not overtly disabled from any mental health issue. On her presentation, the patient was clearly encephalopathic and unable to complete activities of daily living, and she was seen in consultation by Psychiatry. The cause of her encephalopathy was felt to be multifactorial, most likely secondary to the combined effects of poor sleep, metastatic malignancy, acutely destabilizing life stressors, and likely a mild to modestly impaired, yet untreated, baseline. Her hospitalization was extended, as it was very challenging to stabilize her acute encephalopathy. She was deemed to lack capacity to make medical decisions and we work closely with Psychiatry to regulate her sleep pattern, which ultimately improved and stabilized on melatonin and Ativan at bedtime scheduled. Prior to arriving at this medication regimen, we had trialed Zyprexa, Haldol, Ativan, and the patient had refused Zyprexa, gabapentin, and intermittently received IV Haldol. Now that her sleep cycle has been well regulated on melatonin and Ativan, the patient has only intermittently required Haldol, and the patient is amenable to discharging with scheduled Ativan, scheduled melatonin, p.r.n. Haldol, p.r.n. Ativan. After the patient's sleep-wake cycle stabilize, she was deemed to have the capacity to make medical decisions, and the patient feels safe being discharged with the outpatient support of several friends as well as her family who live remotely. Case management was heavily involved in the patient's discharge plan, and [facility] while the patient's outpatient network assist her with activities of daily living. This will also given the opportunity to interact with the patient and her new medications, and hopefully help her transition moving forward. Her situation has been compounded by the fact that she has stage IV malignancy of unclear primary, and it is very difficult to provide the patient with appropriate treatment guidance if we do not know the specific type of malignancy. Due to a past history of trauma, the patient is not amenable to colonoscopy, and given her baseline belief system regarding naturopathic medicine, the patient has repeatedly expressed that she would not want chemotherapy or aggressive medical treatment for her underlying malignancy. Consequently, it was recommended that the patient undergo liver biopsy, as this was deemed to be the most accessible site, and would hopefully be able to give us a tissue diagnosis to help frame conversations in the future. We recommend the patient follow up with [facility] next week to learn her actual diagnosis, as well as receive ongoing surveillance for her anemia which is most likely secondary to a combination of chronic inflammatory disease as well as potential slow GI loss from possible underlying colon cancer. DISCHARGE MEDICATIONS: Please see official discharge medication reconciliation sheet in chart , Ativan 1 mg at bedtime scheduled, 0.5-1 mg throughout the day as needed, melatonin 3 mg at bedtime scheduled, Haldol 1-2 mg throughout the day as needed, Senokot S twice daily, iron 325 twice daily. DISCHARGE INSTRUCTIONS: Please follow up with [facility] next week. TIME SPENT: Greater than 30 minutes were spent on direct patient care, as well as discharge planning and preparation.
--- NOTE | 2018-05-03 18:15 | ASMTDCNOTE ---
Case Management Discharge Discharge Order Complete? Answers: Yes Patient to Obtain Answers: Independently Medications Transportation Arranged Answers: Taxi - Voucher Transport will Pick (Date 05/03/2018 06:30 PM & Time) Family Notified Answers: Yes Notes: Gene, Proxy Discharge Comments Notes: Pt will be discharged to [facility] in [place] where 4 nights have been provided both by [facility] and her proxy, Paddy. She will be sent with all of her medications, both prescribed and over the counter. [facility] will deliver up to 5 days of hot meals, 2 meals a day in addition to extra "sides". CM will follow Pt and help with placement beyond the hotel stay. Paddy has been contacted and told of her discharge this evening. Date Signed: 05/03/2018 06:14 PM Electronically Signed By:Erika Barros
--- NOTE | 2018-05-04 10:03 | ASDISCHSUM ---
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 CM will follow. Date Signed: 04/20/2018 04:39 PM Electronically Signed By:Doreen Bello LCSW [facility] CM Progress Note CM Note CM Note Notes: Spoke with Luiza Cleary, an OBRA coordinator for level 2 PASRR ([phone]). She wanted to know when to come to evaluate. After consulting with Dr Lacey and CM Doreen Bello, it was decided that she should do the evaluation on Monday 04/23. [facility] and [facility] will also evaluate pt for LTC bed placement on Monday. Spoke with [facility]ts [facility] ([phone]). He stated that he has been in touch with pts employer, [employer]. They need to extend pts leave of absence and wanted o fax paperwork to be filled out and faxed back. Gave the paperwork from [employer] to Doreen Bello CM on ICU floor. Best DC plan for pt continues to be a organizational effectiveness director care bed. If pt stabilizes on her new medication regime, it is likely that a facility will accept pt. At this time, pt is in agreement with plan. DC Plan: TBD Date Signed: 04/20/2018 04:43 PM Electronically Signed By:Dena McCorrison, DIETITIAN [facility] CM Progress Note CM Note CM Note Notes: Reviewed chart. Per ICU rounds and Dr. Fernandez, pt with terminal metastatic cancer. Pt with increased delirium, flight of ideas. Per Dr. Fernandez, pt has become very difficult to assess for decisional capacity. Recommendation made for concurrent Hospice and Ethics consultations. [facility] for Ethics and Palliative teams to follow up on Monday04/23/18. Hospice evaluation/referral sent to [facility]; awaiting response. The pt named a male friend Paddy as her POA on 04/16/18. There is some question as to how long she has known this individual and if he is the most appropriate advocate on her behalf. There is also some question as to her decisional capacity at that time. The pt's brothers out of state have expressed an interest in her care and would like to participate in the decision making process. Dr. Fernandez to reach out to Paddy and the pt's brothers today. CM awaiting update. Discharge needs remain unclear at this time. CM will continue to follow and assist in Ethics/Palliative and Hospice consults. Date Signed: 04/22/2018 07:08 PM Electronically Signed By:Rose Lynch RN [facility] CM Progress Note CM Note CM Note Notes: 04/23/2018 Case Management Note Multiple discussions regarding patient today with Montse AGUILLON, Dr. Fernandez, Palliative Care, Ethics and the Chaplains. Please see ethics note for details. Long time friend Paddy WAYNE lives in [facility] [phone]. Pt brother Catracho lives [place] [phone] Pt brother Gerry lives in [place] [phone] Phone call from Lorraine Engel PASSR coordinator. Lorraine Engel is not triggering a level II PASSR, instead [employer] is writing a hospice exemption for 6 months. Phone call to Paddy WAYNE to discuss d/c options. Discussed hospice order. Gene in agreement. Faxed referrals to [facility] and [facility]. Discussed with Yu at [facility]. Yu to discuss if GIP is appropriate with [facility] medical associate and will contact bottle caser in the morning. Faxed referral to [facility]. [facility] to meet pt at the same time as [facility] tomorrow to assess if GIP in a prison facility ([facility] or [facility]) is possible. Faxed updates to multiple SNF notifying of non triggering PASSR. [facility] and [facility] to assess tomorrow. Discussed with Myles at [facility] who is considering pt but concerned re: pt behaviors. Attempted to leave voicemail for the [facility] in [place] but mailbox was full and not taking messages. [facility] declined patient. At [facility]'s request called brother Gerry in [place]. Gerry initially offerred to have pt move in with him, but as it became clear the level of care the pt is requiring, Gerry is hesitant. Discussed pt will need 24/7 care and that unskilled care is an out of pocket expense. At Gerry's request with Gene's permission faxed referrals to [place] SNF within 10 miles of [facility]. Case Management will need to sort out the Medicaid application process in [place]. Encouraged Paddy to have a conference call with Kristy to create a list of questions for MD about prognosis and anticipated recovery. Encouraged Paddy and Gerry to contact an finisher polisher to discuss process for designating a financial power of finisher polisher. Case Management d/c poc: TBD Case Management to follow. Date Signed: 04/23/2018 05:16 PM Electronically Signed By:Shabnam Negrete RN [facility] Progress Note CM Note CM Note Notes: [facility], [place], the director of the inpatient hospice center in [place] participated in phone conference with Paddy WAYNE and myself, MATIAS. Paddy would like to ask questions of the psychiatrist and the physician who determined patient may be experiencing some of her confusion due to the cancer which has metastisized to her brain. Contacted Dr. Lacey who agrees to talk to Paddy and answer any questions he may have. Spoke with Dr. Damon, Hospitalist and he feels patient will need to go to Behavioral Health due to her refusal to take any medications. If patient can be stabilized there and possibly certed for medication administration, he then feels placement in a long term will be more successful. Discussed this with Dr. Lacey who will follow up with a doc to doc discussion with Dr. Damon. D/C plan is still evolving. Possible option is patient placed back on an M1 hold and transferred to behavioral health unit where they can administer "emergency medications and then proceed to the certification process if necessary. When patient stable on meds, then transfer to SNF with a hospice team that can support her care there. However, this is pending the physician consultation and discussion of any options with the patient's MDPOA. MATIAS will follow. Date Signed: 04/24/2018 05:08 PM Electronically Signed By:Doreen Bello LCSW [facility] MATIAS Progress Note MATIAS Note MATIAS Note Notes: Several meetings were held in patient's behalf. The current plan is to medicate patient with Haldol and Ativan to help her get badly needed rest since she is not sleeping. Melissa Heredia is in touch with the patient's brothers and there is discussion of them coming to [place], though nothing has been confirmed. A test has been ordered, paraneal plastic panel to determine if the cancer is involved with the confusion patient is experiencing.Two options being considered is having her brothers take her back home with them and the other returns to the original plan with patient going to SNF with Hospice support. However, D/C plan remains TBD. Melissa Heredia will continue to be involved with this case. CM will follow. Date Signed: 04/27/2018 05:17 PM Electronically Signed By:Doreen Bello LCSW [facility] MATIAS Progress Note MATIAS Marshall CM Note Notes: MATIAS spoke with Dr. Trujillo concerning patient's status today. He reports she is doing much better and is now capable of making her own decisions. She consented to a liver biopsy which will be performed tomorrow. CM to communicate with Melissa Giovanna concerning change in patient's status and plan for discharge depending on biopsy results. Plan: Wait on biopsy results to determine dispo plan. TBD Date Signed: 05/01/2018 02:42 PM Electronically Signed By:Courtney Morgan LCSW [facility] Progress Note MATIAS Marshall CM Note Notes: Had a long discussion with Darlene this morning. She is more lucid and conversant. On the subject of a plan for her health: she is amenable to a liver biopsy to identify the source/type of cancer. She said she will then hear all of the options for treatment. Her goal is to travel with her brothers in a semi-truck (her brother drives one). I am not sure how this plan fits into treatment. The last time she had a diagnosis of cancer was in her breast. The biopsy was positive and she decided against conventional treatment. She claims to have 'kicked' that cancer. The discharge plan for Darlene is still up in the air. I have asked the brothers to come to [place]. Both state they are willing but that was four days ago. I was able to update the Paddy WAYNE, regarding the above, as well as the fact that patient is no longer in need of a sitter or in need of an ICU bed. Plan to move her to or . Date Signed: 05/01/2018 03:50 PM Electronically Signed By:Melissa Heredia RN [facility] Progress Note CM Note CM Note Notes: Spoke to ROSANA Thomason, about discharge plan. He has received word from Jimena that Darlene cannot live with her. Paddy is checking with other people in [place]. He will call me before noon 05/03. The last resort will be for Darlene to stay at the [facility]. Case Management continues to follow. Date Signed: 05/02/2018 05:37 PM Electronically Signed By:Melissa Heredia RN [facility] Progress Note CM Note CM Note Notes: Pt d/cristofer sharma. Reservations made at [facility] in [place] for 4 nights. Conf # [id number]. [employer] was contacted. They will be providing Pt with 2 hot meals a day, Pt states that she will only eat food when it's hot and will not use a microwave. To account for the possibility that Pt will only eat one of the meals extra side dishes will be included (fruit cup...). Pt will not be receiving home [facility] services due to not qualifying for them. [facility] Date Signed: 05/03/2018 04:19 PM Electronically Signed By:Erika Barros Case Management Discharge Plan Note Case Management Discharge Discharge Order Complete? Answers: Yes Patient to Obtain Answers: Independently Medications Transportation Arranged Answers: Taxi - Voucher Transport will Pick (Date 05/03/2018 06:30 PM & Time) Family Notified Answers: Yes Notes: Paddy, Proxy Discharge Comments Notes: Pt will be discharged to [facility] in [place] where 4 nights have been provided both by [facility] and her proxy, Paddy. She will be sent with all of her medications, both prescribed and over the counter. [facility] will deliver up to 5 days of hot meals, 2 meals a day in addition to extra "sides". CM will follow Pt and help with placement beyond the hotel stay. Paddy has been contacted and told of her discharge this evening. Date Signed: 05/03/2018 06:14 PM Electronically Signed By:Erika Barros Intervention Information
--- NOTE | 2018-05-06 18:04 | ASMTCMCOM ---
CM Note CM Note Notes: Note from Monday05/06/18 (late entry) - [employer] down for maintenance Monday afternoon/evening Call received from pt. Pt distressed about "not being able to reach anyone at the hospital." Pt reports leaving multiple messages for CM, Montse Loredo and not receiving any calls back. Pt states she "has gone hungry for the past two days because her meals were delivered to [place] and not [place]." This CM asked pt for her phone number; number obtained. CM reviewed pt's chart and attempted to call her back. Pt provided the phone number for the [employer] in [place] . Reviewed chart. Attempted to call pt back within 10 minutes. Spoke with Nohemi at the [employer]. Per Nohemi, pt "ordered and left with $20 worth of food and said the hospital would be picking up the tab." Explained to Nohemi that the hospital did not authorize the food or the purchase and would not be picking up the bill. Call placed to [employer], student financial aid manager of . Genesis suggested CM call Melissa Heredia, CM director. Attempted to call Melissa twice, no answer, voicemail box full. Call placed to Melissa this morning. Per Melissa, pt is staying at the [facility] in [place] and Melissa has taken care of the complications with her meals. Melissa states "the pt has plenty of food and the hospital will not be paying for any meals from restaurants." The pt has been connected with [employer], [employer], [employer], etc. Melissa is closely following the pt after discharge and should be contacted for any further issues or concerns. Date Signed: 05/06/2018 06:03 PM Electronically Signed By:Rose Lynch RN
--- NOTE | 2018-05-09 18:08 | PQFORM ---
PHYSICIAN QUERY FORM Needs Your Response This query form is being sent to you to assure this patient record is coded properly. Please respond to the question below: MANGLE TENDER QUESTION: Dear. Dr. Mcrae, In reviewing this patients medical record, it is noted patient held the diagnosis of 'Severe protein calorie malnutrition.' In the H&P, patient was diagnosed with 'Severe protein calorie malnutrition and cachectic and thin.' In Dr. Lacey 04/12 consult it is noted "Poor PO intake, malnutrition w/ a BMI of 15.5." In Dr. Fitzgerald's 04/11 consult, is is noted "explained to patient reason for weakness is due to cancer in terms of malnutrition and anemia." In the Dietary Assessment notes patient was consulted for weight loss, was noted to be underweight with a BMI of 15.5. After study, should the diagnosis of ' Severe protein calorie malnutrition' be included in the discharge summary? __X___ Yes No Unable to determine Other more appropriate diagnosis (please specify) Thank you Petrona Bucio, R[facility] HIM/Coding Dept. [phone] INSTRUCTIONS FOR RESPONSE: Answer question by clicking on the "Edit Document" button. Move cursor to area below the stars. When complete, hit "Save." Click on the "Sign" button, then click "Sign" again. Type in your PIN and hit "Enter." yes, the patient has severe protein calorie malnutrition evidenced by low BMI, proximal muscle wasting, cachexia, and likely due to consumptive effects of metastatic malignancy. MTDD
== END 2018-05-03 19:00 | disposition home or self-care (01) | DRG 70 ==
LOC: EDUNIT# → INTOOBSV 04-07 02:04 → F1N 04-07 02:50 → EEVIPCON 04-08 11:53 → OBSVTOIN 04-08 11:53 → F2N 04-19 11:55 → F1N 05-02 10:16
PROVIDERS: ADMIT Family Medicine; ATTEND Family Medicine
PROC: 0FB03ZX Excision of Liver, Percutaneous Approach, Diagnostic (ICD-10-PCS; 2018-05-02)
PROC: 30233N1 Transfusion of Nonautologous Red Blood Cells into Peripheral Vein, Percutaneous Approach (ICD-10-PCS; principal; 2018-05-03)
DX: G93.49 Other encephalopathy (principal); E43 Unspecified severe protein-calorie malnutrition; C78.7 Secondary malignant neoplasm of liver and intrahepatic bile duct; N39.0 Urinary tract infection, site not specified; D50.0 Iron deficiency anemia secondary to blood loss (chronic); D47.3 Essential (hemorrhagic) thrombocythemia; F60.9 Personality disorder, unspecified
CPT/HCPCS: 83520-90; 86256-90; 86301-90; 97110-GO; 97161-GP; 97165-GO; 97535-GO; G0378; G0515-GO; J0696; J1630; J2060; J2250; J2916; J3010; P9016

== ENCOUNTER 2018-05-06 16:44 | Emergency (ER) | payer OTHER, MEDICAID ==
--- NOTE | 2018-05-06 16:55 | EDPHY ---
H & P Time Seen by Provider: 05/06/18 16:55 HPI/ROS: HPI CHIEF COMPLAINT: Left foot pain. HISTORY OF PRESENT ILLNESS: 52-year-old female, was recently hospitalized for prolonged hospitalization due to acute dania, acute encephalopathy, increased life stressors, anemia, and stage IV malignancy of unknown primary, presents emergency room after she injured her foot today. She states she got into an argument at a grocery store and fell. She complains of left foot pain. Unclear which she did on. Mainly pain over her left great toe. No other injuries. She answers my questions appropriately. She is alert or x4. She does not appear psychotic. Past Medical History: Significant medical history prolonged hospitalization recently including acute dania, acute encephalopathy, stage IV malignancy of unknown primary, poor sleep hygiene Past Surgical History: Liver biopsy Social History: Denies current use of drugs alcohol tobacco. Homeless. Family History: Noncontributory ROS REVIEW OF SYSTEMS: 10 Systems were reviewed and negative with the exception of the elements mentioned in the history of present illness. Exam Constitutional nontoxic, triage nursing summary reviewed, vital signs reviewed , awake/alert. Eyes normal conjunctivae and sclera, EOMI, PERRLA. HENT normal inspection, atraumatic, moist mucus membranes, no epistaxis, neck supple/ no meningismus, no raccoon eyes. Respiratory clear to auscultation bilaterally, normal breath sounds, no respiratory distress, no wheezing. Cardiovascular rate normal, regular rhythm, no murmur, no edema, distal pulses normal. Gastrointestinal soft, non-tender, no rebound, no guarding, normal bowel sounds, no distension, no pulsatile mass. Genitourinary no CVA tenderness. Musculoskeletal left foot: Good distal pulse, good cap refill, no significant signs of trauma on the left foot, however complains of toe pain left great toe. no midline vertebral tenderness, full range of motion, no calf swelling, no tenderness of extremities, no meningismus, good pulses, neurovascularly intact. Skin pink, warm, & dry, no rash, skin atraumatic. Neurologic awake, alert and oriented x 3, AAOx3, moves all 4 extremities equally, motor intact, sensory intact, CN II-XII intact, normal cerebellar, normal vision, normal speech. Psychiatric normal mood/affect. Heme/Lymph/Immune no lymphadenopathy. Differential Diagnosis: Includes but is not limited to in a particular order foot contusion, foot sprain, fracture Medical Decision Making: Plan for this patient ice pack, and x-ray of the left foot. Re-evaluation: Patient declined foot x-ray and asked nursing staff to be discharged. She walked out of the emergency room. I did not discuss anything with her I did not have a chance as she left. Source: Patient, EMS - Medical/Surgical History Hx Asthma: No Hx Chronic Respiratory Disease: No Hx Diabetes: No Hx Cardiac Disease: No Hx Renal Disease: No Hx Cirrhosis: No Hx Alcoholism: No Hx HIV/AIDS: No Hx Splenectomy or Spleen Trauma: No Other PMH: anemiaIron deficiency Anemia;malnutrition;episodesof delirium; recent possible metastatic colon Ca - Social History Smoking Status: Never smoked Constitutional: Initial Vital Signs Temperature (C) 37.1 C 05/06/18 16:45 Heart Rate 107 H 05/06/18 16:45 Respiratory Rate 16 05/06/18 16:45 Blood Pressure 113/71 05/06/18 16:45 O2 Sat (%) 92 05/06/18 16:45 O2 Delivery Mode Room Air Allergies/Adverse Reactions: lorazepam Allergy (Verified 05/06/18 16:56) NSAIDS (Non-Steroidal Anti-Inflamma Allergy (Verified 04/07/18 12:00) Sulfa (Sulfonamide Antibiotics) Allergy (Verified 05/06/18 16:56) antibiotics Allergy (Uncoded 04/07/18 12:01) Other-Enter Comments Kale Adverse Reaction (Unknown, Uncoded 04/13/18 11:15) Departure - Departure Disposition: Against Medical Advice Clinical Impression: Foot contusion Qualifiers: Encounter type: initial encounter Laterality: left Qualified Code(s): S90.32XA - Contusion of left foot, initial encounter Condition: Good Instructions: Foot Contusion (ED) Additional Instructions: 1. Recommend ice. 2. Recommend elevation 3. Follow up with her PCP. 4. Return if worse. Referrals: Patient,NotPresent [Unknown] - As per Instructions
[2018-05-06 16:59] VITALS: BP 113/71
--- NOTE | 2018-05-06 19:33 | ASMTCMCOM ---
CM Note CM Note Notes: Pt presented to the ED via EMS from a grocery store for toe pain due to a fall. Pt reportedly had an outburst at staff there. Pt recently discharged from [facility] (see various past CM Reports) to the [facility] in [place] w nights paid by [facility] and pt's proxy, Paddy. Pt became disruptive in the ED and was asked to not yell. Pt stated she wanted to leave. Pt aware she is leaving AMA. This CM assisted pt to the waiting room where we spoke for about 45 minutes. Pt agreeable to being provided a cab back to the hotel. Cab voucher used due to time and convenience. Pt gave verbal permission to notify Melissa Heredia, Director of , of her returning to the hotel. Pt state her brother Catracho has arrived from [place] and is there at the hotel. CM available for further assistance if needed. Date Signed: 05/06/2018 07:32 PM Electronically Signed By:Paris Ding RN
== END 2018-05-06 17:27 | disposition left against medical advice (07) ==
LOC: EDUNIT#
DX: S90.32XA Contusion of left foot, initial encounter (principal); G93.49 Other encephalopathy; D64.9 Anemia, unspecified; C79.81 Secondary malignant neoplasm of breast; Y92.512 Supermarket, store or market as the place of occurrence of the external cause; W19.XXXA Unspecified fall, initial encounter

== ENCOUNTER 2018-05-06 23:06 | Observation (INO) | payer OTHER, MEDICAID ==
--- NOTE | 2018-05-06 23:32 | EDPHY ---
H & P Time Seen by Provider: 05/06/18 23:32 HPI/ROS: CHIEF COMPLAINT: Psychosis HISTORY OF PRESENT ILLNESS: The patient is a 52-year-old female well known to this emergency room right here by EMS with concerns for psychosis. 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 She was recently admitted for encephalopathy and was treated with IV Haldol and Ativan. Additionally she had a biopsy of her liver as the primary source for cancer was unclear. She is awaiting follow- up on these labs. She states she has attempted to follow up but does not been able to follow up with the Cancer [facility] yet. Denies any fever chills or chest pain or shortness of breath or abdominal pain. Review of her chart does show that she has been extremely resistant to chemotherapy. Additionally noted in her multiple visits was a history of chronic anemia secondary to gastrointestinal bleed. REVIEW OF SYSTEMS: Constitutional: No fever, no chills. Eyes: No discharge. ENT: No sore throat. Cardiovascular: No chest pain, no palpitations. Respiratory: No cough, no shortness of breath. Gastrointestinal: No abdominal pain, no vomiting. Genitourinary: No hematuria. Musculoskeletal: No back pain. Skin: No rashes. Neurological: No headache. Smoking Status: Never smoked Physical Exam: General Appearance: Alert and no distress. Patient is alert to person place and time and knows the presidents name. Eyes: Pupils equal and round no injection. Respiratory: Chest is nontender, lungs are clear to auscultation. Cardiac: regular rate and rhythm. Gastrointestinal: Abdomen is soft and nontender, no masses, bowel sounds normal. Musculoskeletal: Neck is supple and nontender. Extremities have full range of motion and are nontender. Skin: No rashes or lesions. Constitutional: Initial Vital Signs Temperature (C) 36.5 C 05/06/18 23:13 Heart Rate 103 H 05/06/18 23:13 Respiratory Rate 16 05/06/18 23:13 Blood Pressure 106/68 05/06/18 23:13 O2 Sat (%) 94 05/06/18 23:13 O2 Delivery Mode Room Air Allergies/Adverse Reactions: lorazepam Allergy (Verified 05/06/18 16:56) NSAIDS (Non-Steroidal Anti-Inflamma Allergy (Verified 04/07/18 12:00) Sulfa (Sulfonamide Antibiotics) Allergy (Verified 05/06/18 16:56) antibiotics Allergy (Uncoded 04/07/18 12:01) Other-Enter Comments Kevin Adverse Reaction (Unknown, Uncoded 04/13/18 11:15) Medical Decision Making ED Course/Re-evaluation: 52-year-old female brought here by EMS for walking into traffic and other unsafe unusual behavior. On arrival she is alert and oriented during my evaluation but other providers including nursing staff attempted have discussions with the% and she is unable to have a lucent discussion. Her H&H returned showing an acute drop. This patient does have acute blood loss and acutely psychotic and gravely disabled she will be admitted for further treatment and evaluation. 1 unit of packed RBCs was ordered in the emergency room. She is resting comfortably after 1 mg of Ativan. - Data Points Laboratory Results: Laboratory Results 05/07/18 00:01 05/07/18 00:01 05/07/18 05/07/18 05/07/18 00:10 00:04 00:01 WBC RBC Hgb Hct MCV MCH MCHC RDW Plt Count MPV Neut % (Auto) Lymph % (Auto) [place] % (Auto) Eos % (Auto) Baso % (Auto) Nucleat RBC Rel Count Absolute Neuts (auto) Absolute Lymphs (auto) Absolute Monos (auto) Absolute Eos (auto) Absolute Basos (auto) Absolute Nucleated RBC Immature Gran % Immature Gran # Platelet Estimate Polychromasia Hypochromasia Echinocytes Schistocytes Smear Review By Sodium 143 mEq/L mEq/L (135-145) Potassium 4.2 mEq/L mEq/L (3.3-5.0) Chloride 109 mEq/L mEq/L (97-110) Carbon Dioxide 28 mEq/l mEq/l (22-31) Anion Gap 6 mEq/L L mEq/L (8-16) BUN 21 mg/dL mg/dL (7-23) Creatinine 0.6 mg/dL mg/dL (0.6-1.0) Estimated GFR > 60 Glucose 114 mg/dL H mg/dL (70-100) Calcium 8.5 mg/dL mg/dL (8.5-10.4) Total Bilirubin 0.5 mg/dL mg/dL (0.1-1.4) AST 13 IU/L L IU/L (14-46) ALT 21 IU/L IU/L (9-52) Alkaline Phosphatase 71 IU/L IU/L (38-126) POC Troponin I 0.00 ng/mL ng/mL (0.00-0.08) Total Protein 5.2 g/dL L g/dL (6.3-8.2) Albumin 2.4 g/dL L g/dL (3.5-5.0) Urine Color YELLOW Urine Appearance HAZY Urine pH 5.0 (5.0-7.5) Ur Specific [place] 1.029 (1.002-1.030) Urine Protein NEGATIVE (NEGATIVE) Urine Ketones NEGATIVE (NEGATIVE) Urine Blood NEGATIVE (NEGATIVE) Urine Nitrate NEGATIVE (NEGATIVE) Urine Bilirubin NEGATIVE (NEGATIVE) Urine Urobilinogen 2.0 EU H EU (0.2-1.0) Ur Leukocyte Esterase TRACE H (NEGATIVE) Urine RBC 1-3 /hpf /hpf (0-3) Urine WBC 3-5 /hpf H /hpf (0-3) Ur Epithelial Cells TRACE /lpf /lpf (NONE-1+) Urine Mucus 3+ /lpf H /lpf (NONE-1+) Urine Glucose NEGATIVE (NEGATIVE) 05/07/18 00:01 WBC 11.15 10^3/uL H 10^3/uL (3.80-9.50) RBC 2.37 10^6/uL L 10^6/uL (4.18-5.33) Hgb 6.5 g/dL L g/dL (12.6-16.3) Hct 21.1 % L % (38.0-47.0) MCV 89.0 fL fL (81.5-99.8) MCH 27.4 pg L pg (27.9-34.1) MCHC 30.8 g/dL L g/dL (32.4-36.7) RDW 16.9 % H % (11.5-15.2) Plt Count 673 10^3/uL H 10^3/uL (150-400) MPV 7.9 fL L fL (8.7-11.7) Neut % (Auto) 77.1 % H % (39.3-74.2) Lymph % (Auto) 10.1 % L % (15.0-45.0) [place] % (Auto) 9.7 % % (4.5-13.0) Eos % (Auto) 2.2 % % (0.6-7.6) Baso % (Auto) 0.5 % % (0.3-1.7) Nucleat RBC Rel Count 0.0 % % (0.0-0.2) Absolute Neuts (auto) 8.60 10^3/uL H 10^3/uL (1.70-6.50) Absolute Lymphs (auto) 1.13 10^3/uL 10^3/uL (1.00-3.00) Absolute Monos (auto) 1.08 10^3/uL H 10^3/uL (0.30-0.80) Absolute Eos (auto) 0.24 10^3/uL 10^3/uL (0.03-0.40) Absolute Basos (auto) 0.06 10^3/uL 10^3/uL (0.02-0.10) Absolute Nucleated RBC 0.00 10^3/uL 10^3/uL (0-0.01) Immature Gran % 0.4 % % (0.0-1.1) Immature Gran # 0.04 10^3/uL 10^3/uL (0.00-0.10) Platelet Estimate INCREASED H (ADEQ) Polychromasia 1+ H Hypochromasia 1+ H Echinocytes 2+ H Schistocytes 1+ H Smear Review By Pending Sodium Potassium Chloride Carbon Dioxide Anion Gap BUN Creatinine Estimated GFR Glucose Calcium Total Bilirubin AST ALT Alkaline Phosphatase POC Troponin I Total Protein Albumin Urine Color Urine Appearance Urine pH Ur Specific [place] Urine Protein Urine Ketones Urine Blood Urine Nitrate Urine Bilirubin Urine Urobilinogen Ur Leukocyte Esterase Urine RBC Urine WBC Ur Epithelial Cells Urine Mucus Urine Glucose Medications Given: Lorazepam (Ativan Injection) 1 mg IVP Q4HRS PRN PRN Reason: Agitation Stop: 11/03/18 00:51 Last Admin: 05/07/18 00:50 Dose: 1 mg Point of Care Test Results: Chemistry 05/07/18 00:04 POC Troponin I 0.00 ng/mL ng/mL (0.00-0.08) Departure - Departure
[2018-05-07 00:14] LABS: PLATELET COUNT 673 10^3/uL (150-400)
[2018-05-07] MEDS ORDERED: LORazepam 2 MG/ML INJ ONE (00:38)
[2018-05-07] MEDS: LORazepam 2 MG/ML INJ IVP PRN ×3 (00:50→20:38)
[2018-05-07] MEDS ORDERED: ONDANSETRON 4 MG/2 ML VIAL IVP PRN (00:51)
[2018-05-07] MEDS ORDERED: ONDANSETRON DISINTEGRATING 4 MG TAB PO PRN (00:51)
--- NOTE | 2018-05-07 01:44 | CPEKG ---
Test Reason : OPEN Blood Pressure : / mmHG Vent. Rate : 092 BPM Atrial Rate : 092 BPM P-R Int : 143 ms QRS Dur : 081 ms QT Int : 378 ms P-R-T Axes : 034 045 059 degrees QTc Int : 468 ms Sinus rhythm Ventricular premature complex Confirmed by Ozzy Mejia ([id number]) on 05/07/2018 1:44:04 AM Referred By: Confirmed By:Ozzy Mejia
--- NOTE | 2018-05-07 02:07 | PDGENHP ---
History and Physical - Chief Complaint Anemia, AMS - History of Present Illness 52 yo F w/ hx of metastatic malignancy of unknown primary, anemia, and complicated psychiatric disease presents with altered mental status. Patient has been seen in the ED multiple times today. Earlier today she was seen for toe pain. During her stay she was disruptive and demanding of ED staff. When she felt her needs were not being met she left before her evaluation was complete. She was returned to the ED this evening by EMS with concerns for psychosis and grave disability. During her stay in the ED, per ED staff, she displayed signs of dania and altered mental status. At the time of my evaluation the patient is somnolent after administration of Ativan so I was unable to obtain additional history. She was admitted for the majority of the last month with similar issues. She has expressed resistance to further diagnostics and treatment for her widespread malignancy. There is a liver biopsy pending at the moment, however. In terms of her anemia, this has been suspected to be due to iron deficiency, chronic inflammation, and possible GI loss from malignancy. Patient has refused colonoscopy in the past. Her Hgb is 6.5 today, down from 7.2 on day of discharge 05/02. Case discussed with ED physician Dr. Mejia; previous records reviewed in EMR. History Information - Allergies/Home Medication List Allergies/Adverse Reactions: lorazepam Allergy (Verified 05/06/18 16:56) NSAIDS (Non-Steroidal Anti-Inflamma Allergy (Verified 04/07/18 12:00) Sulfa (Sulfonamide Antibiotics) Allergy (Verified 05/06/18 16:56) antibiotics Allergy (Uncoded 04/07/18 12:01) Other-Enter Comments Kale Adverse Reaction (Unknown, Uncoded 04/13/18 11:15) I have personally reviewed and updated: family history, medical history - Past Medical History cancer Additional medical history: Personality disorder. ?OCD. ?Bipolar - Surgical History Additional surgical history: Liver biopsy - Family History Additional family history: Unable to obtain due to mental status - Social History Smoking Status: Never smoked Review of Systems Review of Systems: Unable to obtain due to mental status Physical Exam Physical Exam: Temp Pulse Resp BP Pulse Ox 36.5 C 95 14 106/68 95 05/06/18 23:13 05/07/18 01:07 05/07/18 01:07 05/06/18 23:13 05/07/18 01:07 Constitutional: chronically ill appearing, unkempt Eyes: PERRL, anicteric sclera Ears, Nose, Mouth, Throat: moist mucous membranes, no oral mucosal ulcers Cardiovascular: no murmur, rub, or gallop, tachycardia Respiratory: no respiratory distress, clear to auscultation Gastrointestinal: normoactive bowel sounds, soft, non-tender abdomen Skin: warm, normal color Musculoskeletal: full muscle strength, no muscle tenderness Neurologic: other (Somnolent), No facial droop Psychiatric: encephalopathic, poor insight Lab Data & Imaging Review 05/07/18 00:01 05/07/18 00:01 WBC 11.15 10^3/uL (3.80-9.50) H 05/07/18 00:01 RBC 2.37 10^6/uL (4.18-5.33) L 05/07/18 00:01 Hgb 6.5 g/dL (12.6-16.3) L 05/07/18 00:01 Hct 21.1 % (38.0-47.0) L 05/07/18 00:01 MCV 89.0 fL (81.5-99.8) 05/07/18 00:01 MCH 27.4 pg (27.9-34.1) L 05/07/18 00:01 MCHC 30.8 g/dL (32.4-36.7) L 05/07/18 00:01 RDW 16.9 % (11.5-15.2) H 05/07/18 00:01 Plt Count 673 10^3/uL (150-400) H 05/07/18 00:01 MPV 7.9 fL (8.7-11.7) L 05/07/18 00:01 Neut % (Auto) 77.1 % (39.3-74.2) H 05/07/18 00:01 Lymph % (Auto) 10.1 % (15.0-45.0) L 05/07/18 00:01 [place] % (Auto) 9.7 % (4.5-13.0) 05/07/18 00:01 Eos % (Auto) 2.2 % (0.6-7.6) 05/07/18 00:01 Baso % (Auto) 0.5 % (0.3-1.7) 05/07/18 00:01 Nucleat RBC Rel Count 0.0 % (0.0-0.2) 05/07/18 00:01 Absolute Neuts (auto) 8.60 10^3/uL (1.70-6.50) H 05/07/18 00:01 Absolute Lymphs (auto) 1.13 10^3/uL (1.00-3.00) 05/07/18 00:01 Absolute Monos (auto) 1.08 10^3/uL (0.30-0.80) H 05/07/18 00:01 Absolute Eos (auto) 0.24 10^3/uL (0.03-0.40) 05/07/18 00:01 Absolute Basos (auto) 0.06 10^3/uL (0.02-0.10) 05/07/18 00:01 Absolute Nucleated RBC 0.00 10^3/uL (0-0.01) 05/07/18 00:01 Immature Gran % 0.4 % (0.0-1.1) 05/07/18 00:01 Immature Gran # 0.04 10^3/uL (0.00-0.10) 05/07/18 00:01 Platelet Estimate INCREASED (ADEQ) H 05/07/18 00:01 Polychromasia 1+ H 05/07/18 00:01 Hypochromasia 1+ H 05/07/18 00:01 Echinocytes 2+ H 05/07/18 00:01 Schistocytes 1+ H 05/07/18 00:01 Sodium 143 mEq/L (135-145) 05/07/18 00:01 Potassium 4.2 mEq/L (3.3-5.0) 05/07/18 00:01 Chloride 109 mEq/L (97-110) 05/07/18 00:01 Carbon Dioxide 28 mEq/l (22-31) 05/07/18 00:01 Anion Gap 6 mEq/L (8-16) L 05/07/18 00:01 BUN 21 mg/dL (7-23) 05/07/18 00:01 Creatinine 0.6 mg/dL (0.6-1.0) 05/07/18 00:01 Estimated GFR > 60 05/07/18 00:01 Glucose 114 mg/dL (70-100) H 05/07/18 00:01 Calcium 8.5 mg/dL (8.5-10.4) 05/07/18 00:01 Total Bilirubin 0.5 mg/dL (0.1-1.4) 05/07/18 00:01 AST 13 IU/L (14-46) L 05/07/18 00:01 ALT 21 IU/L (9-52) 05/07/18 00:01 Alkaline Phosphatase 71 IU/L (38-126) 05/07/18 00:01 POC Troponin I 0.00 ng/mL (0.00-0.08) 05/07/18 00:04 Total Protein 5.2 g/dL (6.3-8.2) L 05/07/18 00:01 Albumin 2.4 g/dL (3.5-5.0) L 05/07/18 00:01 Urine Color YELLOW 05/07/18 00:10 Urine Appearance HAZY 05/07/18 00:10 Urine pH 5.0 (5.0-7.5) 05/07/18 00:10 Ur Specific [place] 1.029 (1.002-1.030) 05/07/18 00:10 Urine Protein NEGATIVE (NEGATIVE) 05/07/18 00:10 Urine Ketones NEGATIVE (NEGATIVE) 05/07/18 00:10 Urine Blood NEGATIVE (NEGATIVE) 05/07/18 00:10 Urine Nitrate NEGATIVE (NEGATIVE) 05/07/18 00:10 Urine Bilirubin NEGATIVE (NEGATIVE) 05/07/18 00:10 Urine Urobilinogen 2.0 EU (0.2-1.0) H 05/07/18 00:10 Ur Leukocyte Esterase TRACE (NEGATIVE) H 05/07/18 00:10 Urine RBC 1-3 /hpf (0-3) 05/07/18 00:10 Urine WBC 3-5 /hpf (0-3) H 05/07/18 00:10 Ur Epithelial Cells TRACE /lpf (NONE-1+) 05/07/18 00:10 Urine Mucus 3+ /lpf (NONE-1+) H 05/07/18 00:10 Urine Glucose NEGATIVE (NEGATIVE) 05/07/18 00:10 Patient ABO/Rh O POSITIVE 05/07/18 01:00 Antibody Screen NEGATIVE 05/07/18 01:00 Crossmatch IS Only See Detail 05/07/18 01:00 Assessment & Plan Assessment: 52 yo F w/ hx of metastatic malignancy of unknown primary, anemia, and complicated psychiatric disease presents with altered mental status and anemia. Plan: 1. Acute encephalopathy - Multifactorial from malignancy, personality disorder, and likely psychiatric disease (?OCD, BPD). Patient was brought in by EMS due to psychosis and grave disability. During recent, lengthy admission nighttime melatonin and Ativan seemed to be helpful in regulating her sleep-wake cycle. - Continue Ativan and melatonin qHS - Ativan PRN for agitation 2. Anemia - Hgb 6.5 on admission, decreased from 7.2 on day of discharge 05/02. This trend follows the pattern of much of the last month, likely claim service representative of slow GI loss complicated by iron deficiency and chronic inflammation. She has refused a colonoscopy for further evaluation. - Transfuse 1u pRBC now (will delay until able to obtain consent) - Monitor CBC 3. Suspected Stage IV malignancy - Unknown primary; liver biopsy is currently pending. Per Dr. Fitzgerald, her prognosis is ~3 months without treatment. Per review of previous records, she has been resistant to treatment. 4. Thrombocytosis - Chronic, values fairly stable from prior. Diet - Regular Code - Full Ppx - SCDs Dispo - Admit under observation status for now.
[2018-05-07] MEDS ORDERED: LORazepam 2 MG/ML INJ IVP ONE (02:48)
[2018-05-07 04:08] LABS: PLATELET COUNT 618 10^3/uL (150-400)
[2018-05-07] MEDS: ACETAMINOPHEN 325 MG TAB PO PRN (13:12)
--- NOTE | 2018-05-07 15:21 | HOSPPROG ---
Hospitalist Progress Note Assessment/Plan: 52 yo F w/ hx of metastatic malignancy of unknown primary, anemia, and complicated psychiatric disease presents with altered mental status and anemia. 1. Acute encephalopathy - Multifactorial from malignancy, personality disorder, and likely psychiatric disease (?OCD, BPD). Patient was brought in by EMS due to psychosis and grave disability. During recent, lengthy admission nighttime melatonin and Ativan seemed to be helpful in regulating her sleep-wake cycle. - Continue Ativan and melatonin qHS - Ativan PRN for agitation - Will review Psychiatry notes from last admission and consult for further evaluation and management 2. Anemia - Hgb 6.5 on admission, decreased from 7.2 on day of discharge 05/02. This trend follows the pattern of much of the last month, likely client care representative of slow GI loss complicated by iron deficiency and chronic inflammation. She has refused a colonoscopy for further evaluation. - S/p 1u pRBC on admission - Monitor CBC 3. Suspected Stage IV malignancy - Unknown primary; liver biopsy is currently pending. Per Dr. Fitzgerald, her prognosis is ~3 months without treatment. Per review of previous records, she has been resistant to treatment. 4. Thrombocytosis - Chronic, values fairly stable from prior. Diet - Regular Code - Full Ppx - SCDs Dispo - Pending clinical course, case management is following Subjective: Patient reports some low back pain, she is discussing her diet in length Objective: Vital Signs Temp Pulse Resp BP Pulse Ox 36.6 C 85 16 101/55 L 95 05/07/18 11:02 05/07/18 11:02 05/07/18 11:02 05/07/18 11:02 05/07/18 11:02 Laboratory Results 05/07/18 04:00 05/07/18 04:00 05/06/18 05/07/18 05/08/18 05:59 05:59 05:59 Intake Total 100 Output Total 500 Balance -400 - Physical Exam Constitutional: no apparent distress, chronically ill appearing, unkempt, cachectic Eyes: PERRL Ears, Nose, Mouth, Throat: moist mucous membranes Cardiovascular: regular rate and rhythym Respiratory: no respiratory distress Gastrointestinal: soft, non-tender abdomen Genitourinary: no bladder tenderness Skin: warm Neurologic: AAOx3 Psychiatric: anxious, poor insight, No thought process linear ICD10 Worksheet Patient Problems: Problems Problem Status Onset Altered mental status Acute Anemia Acute
--- NOTE | 2018-05-07 16:32 | ASMTCMCOM ---
CM Note CM Note Notes: Chart reviewed, patient discussed in rounds. She is well known to this staff as she just discharged Monday. Readmitted via ED for psychotic behaviors and safety concerns. Spoke with her brother Catracho who is visiting [facility]. He is here only till Monday. Her pathology report is back today from biopsy of her liver on 05/02/18 and is positive for metastatic disease in her liver. Today she has been quieter and more subdued but clearly has manic tendencies per her nurse. Melissa Heredia has been closely involved with this patient's POC. Spoke with Dr. Guzman regarding plan of care. Dr Domitila Lacey is to see the patient tomorrow. Discharge panning is challenging given her behaviors and diagnosis CM to follow. Plan: TBD Date Signed: 05/07/2018 04:32 PM Electronically Signed By:Oneyda Santiago RN
[2018-05-08] MEDS: LORazepam 2 MG/ML INJ IVP PRN ×5 (00:26→23:59)
[2018-05-08] MEDS: ACETAMINOPHEN 325 MG TAB PO PRN (07:56)
--- NOTE | 2018-05-08 10:38 | HOSPPROG ---
Hospitalist Progress Note Assessment/Plan: 52 yo F w/ hx of metastatic malignancy of unknown primary, anemia, and complicated psychiatric disease presents with altered mental status and anemia. 1. Acute encephalopathy - Multifactorial from malignancy, personality disorder, and likely psychiatric disease (?OCD, BPD). Patient was brought in by EMS due to psychosis and grave disability. During recent, lengthy admission nighttime melatonin and Ativan seemed to be helpful in regulating her sleep-wake cycle. - Continue Ativan and melatonin qHS - Ativan PRN for agitation - Consulted psychiatry, spoke with Dr. Lacey who will see patient today - May require repeat brain imaging during this hospitalization given metastatic disease 2. Anemia - Hgb 6.5 on admission, decreased from 7.2 on day of discharge 05/02. This trend follows the pattern of much of the last month, likely medical representative of slow GI loss complicated by iron deficiency and chronic inflammation. She has refused a colonoscopy for further evaluation. - S/p 1u pRBC on admission, Hgb improved to 7.9 this AM - Monitor CBC 3. Stage IV malignancy - Unknown primary; liver biopsy shows metastatic adenocarcinoma. Per Dr. Fitzgerald, her prognosis is ~3 months without treatment. Per review of previous records, she has been resistant to treatment. Will consult oncology today to discuss options with patient 4. Thrombocytosis - Chronic, values fairly stable from prior. Diet - Regular Code - Full Ppx - SCDs Dispo - Pending clinical course, case management is following Subjective: Patient sleeping upon entry ,she required IV Ativan ovenright for agitation Objective: Vital Signs Temp Pulse Resp BP Pulse Ox 36.9 C 88 16 111/65 96 05/08/18 04:00 05/08/18 04:00 05/08/18 04:00 05/08/18 04:00 05/08/18 04:00 Laboratory Results 05/08/18 06:10 05/07/18 04:00 05/07/18 05/08/18 05/09/18 05:59 05:59 05:59 Intake Total 2100 Output Total 1700 900 Balance 400 -900 - Physical Exam Constitutional: chronically ill appearing, unkempt, cachectic Eyes: PERRL Ears, Nose, Mouth, Throat: dry mucous membranes Cardiovascular: regular rate and rhythym Respiratory: no respiratory distress Gastrointestinal: soft, non-tender abdomen Genitourinary: no bladder tenderness Skin: warm Musculoskeletal: no muscle tenderness Neurologic: AAOx3 Psychiatric: poor insight ICD10 Worksheet Patient Problems: Problems Problem Status Onset Altered mental status Acute Anemia Acute
--- NOTE | 2018-05-08 14:33 | PDCONSULT ---
Attending Urologist Note: Requesting provider: Dr. Krish Guzman Reason for consultation: Metastatic breast cancer History of present illness: Darlene is a 52 year old female with a previous diagnosis of breast cancer 7 years ago with been untreated who now presents with metastatic disease. She states that she initially was diagnosed with breast cancer in [place] around 7- 8 years ago. They had recommended bilateral mastectomy alongside axillary lymph node dissection. She declined and pursued natural remedies. She states that the natural remedies previously treated and cured her cancer. [facility] of worsening [facility]. She has received multiple transfusions since February of 2018. She underwent diagnostic imaging that demonstrated metastatic disease. She most recently had a biopsy of the liver that demonstrated adenocarcinoma that was ER 90% positive, NJ negative. This is my 1st visit with Darlene and is difficult to ascertain history. She is tangential with regard to her history. Past medical history: History of breast cancer that is untreated. Family history: Her brother had colon cancer. Her mother also had cancer of unknown type. Social history: She currently is homeless due to social circumstances Review of systems: 12 point review systems was obtained. They are positive for weight loss, fatigue. Medications Generic Name Dose Route Start Last Admin Trade Name Freq PRN Reason Stop Dose Admin Acetaminophen 650 mg 05/07/18 00:51 05/08/18 07:56 Tylenol PO 11/03/18 00:50 650 mg Q4HRS PRN Administration Pain, Mild/Fever, Can Take PO Lorazepam 1 mg 05/07/18 00:52 05/08/18 13:17 Ativan Injection IVP 11/03/18 00:51 1 mg Q4HRS PRN Administration Agitation Discontinued Medications Generic Name Dose Route Start Last Admin Trade Name Freq PRN Reason Stop Dose Admin Lorazepam 1 mg 05/07/18 02:48 05/07/18 02:50 Ativan Injection IVP 05/07/18 02:49 1 mg EDNOW ONE Administration Physical examination: General: Patient is conversant, she is thin, she is tangential on discussion Cardiac: Regular rate and rhythm no murmurs gallops or rubs Pulmonary: Clear to auscultation bilaterally Psych: She is unable to sit during conversations. She is holding Nasima on folding her bedding frequently. Abdomen: Soft nontender, nondistended, bs+ Extremities: No cyanosis clubbing or edema Skin: No skin lesions Neuro: Moving all extremities. Pathology: 05/02/2018 biopsy the liver demonstrates ER positive adenocarcinoma. [place] is negative. Her 2 was not tested. Assessment and plan: Darlene is a 52-year-old female with metastatic breast cancer. 1. Metastatic breast cancer: She currently is premenopausal. I have recommended that she initiate endocrine therapy in the form of tamoxifen. We will give handouts with regards to side effects of tamoxifen. In viewing her history, she has made it clear that she does not want to receive treatment for her breast cancer in a traditional sense. She previously was diagnosed with breast cancer 7 years ago and has essentially left this on treated. I explained to her that without treatment that she likely will progress with life expectancy is likely less than 1 year. If she does not receive transfusion that I estimate would be likely less than that. If she does not want to receive any form of therapy for breast cancer, I recommended that she proceed with hospice. I think the pressing issue with her care is her underlying psychiatric disorder. I am unclear whether she is able to make her own independent decisions. She does have Psychiatry consult in regard to her care today. I have recommended outpatient follow-up for further discussion at time of discharge. A total of 60 minutes was placed on this visit with > 50% placed on counseling and coordination of her care.
--- NOTE | 2018-05-08 15:20 | ASMTCMCOM ---
CM Note CM Note Notes: Oncology and psychiatry consults today. Onc recommends endocrine therapy. Per note, he has advised her of life expectancy both with and without treatment. If she does not elect therapy, hospice would be the best option. Melissa Heredia following. A CM from [facility], also called today to offer services. Her number is [phone] ex [phone]. Case Management will follow. Date Signed: 05/08/2018 03:19 PM Electronically Signed By:Meenu Nagel RN
--- NOTE | 2018-05-08 21:05 | ASMTCMCOM ---
CM Note CM Note Notes: Family conference included both brothers and Gene. Jimena was not available. It was decided that Sunny will be the proxy decision maker. Darlene agrees to go to a SNF under the care of [facility]. Every attempt will be made to get a discharge for May 09. [facility] is the first choice for SNF. Date Signed: 05/08/2018 09:05 PM Electronically Signed By:Melissa Heredia RN
[2018-05-09] MEDS: MELATONIN 3 MG TAB PO PRN ×3 (01:58→21:53)
[2018-05-09 04:52] LABS: PLATELET COUNT 502 10^3/uL (150-400)
[2018-05-09] MEDS: LORazepam 2 MG/ML INJ IVP PRN ×3 (09:08→21:54)
--- NOTE | 2018-05-09 16:34 | HOSPPROG ---
Hospitalist Progress Note Assessment/Plan: 52 yo F w/ hx of metastatic malignancy of unknown primary, anemia, and complicated psychiatric disease presents with altered mental status and anemia. 1. Acute encephalopathy - Seems improved / stable today. Multifactorial from malignancy, personality disorder, and psychiatric disease (?OCD, BPD). Patient was brought in by EMS due to psychosis and grave disability. During recent, lengthy admission nighttime melatonin and Ativan seemed to be helpful in regulating her sleep-wake cycle. - Continue Ativan and melatonin qHS - Ativan PRN for agitation - Discussed with psychiatry - Considered brain imaging, but pt refuses 2. Anemia - s/p 1 u prbc's, hgb 7.9 from 6.9 and remains stable today. No e/o active bleeding. - follow 3. Metastatic breast cancer - Per Dr. Fitzgerald, her prognosis is ~3 months without treatment. Per review of previous records, she has refused treatment. Discussed with oncology, who recommended Tamoxifen, though pt refuses to take pills. 4. Thrombocytosis - Chronic, values fairly stable from prior. Diet - Regular Code - Full Ppx - SCDs Dispo - cont inpt. Brother Catracho is MDPOA. Plan is d/c to memory care SNF with hospice. Subjective: Pt is sleepy, no complaints this am. Asking for armenian yogurt. No pain. No fevers. Objective: Vital Signs Temp Pulse Resp BP Pulse Ox 36.6 C 99 16 105/62 98 05/09/18 07:54 05/09/18 07:54 05/09/18 07:54 05/09/18 07:54 05/09/18 07:54 Laboratory Results 05/09/18 04:40 05/07/18 04:00 05/08/18 05/09/18 05/10/18 05:59 05:59 05:59 Intake Total 2100 450 Output Total 1700 3700 710 Balance 400 -1450 -710 - Physical Exam Constitutional: no apparent distress Eyes: PERRL Ears, Nose, Mouth, Throat: moist mucous membranes Cardiovascular: regular rate and rhythym Respiratory: no respiratory distress Gastrointestinal: normoactive bowel sounds Skin: warm Neurologic: AAOx3 Psychiatric: anxious, poor insight ICD10 Worksheet Patient Problems: Problems Problem Status Onset Altered mental status Acute Anemia Acute
--- NOTE | 2018-05-09 18:46 | ASMTCMCOM ---
CM Note CM Note Notes: Patient has been seen by [facility] evaluated patient and has denied her admission on the basis that there is no definitive diagnosis of dementia. This CM has placed a referral to [facility] as well . Possibly investigate whether [facility] has inpatient bed. CM to follow. Plan: To skilled center with hospice when available. Date Signed: 05/09/2018 02:39 PM Electronically Signed By:Oneyda Santiago RN
[2018-05-10] MEDS: LORazepam 2 MG/ML INJ IVP PRN (02:37)
[2018-05-10] MEDS: CALCIUM CARBONATE 500 MG CHEWABLE TAB PO PRN ×2 (05:36→15:42)
[2018-05-10 08:44] VITALS: BP 115/73
--- NOTE | 2018-05-10 14:42 | PDIAF ---
- Diagnosis Diagnosis: metastatic breast cancer Code Status: Full Code - Medication Management Discharge Medications: Medications to Continue on Transfer Ferrous Sulfate [Ferrous Sulf 325 MG (*)] 325 mg PO BID 05/07/18 [Last Taken Unknown] Haloperidol [Haldol 1 MG (*)] 1 - 2 mg PO Q6HRS PRN 05/07/18 [Last Taken Unknown ] LORazepam [Ativan (*)] 0.5 - 1 mg PO Q4HRS PRN 05/07/18 [Last Taken Unknown] Melatonin [Melatonin 3 MG (*)] 3 mg PO HS 05/07/18 [Last Taken Unknown] Sennosides/Docusate Sodium [Senokot-S] 1 each PO BID 05/07/18 [Last Taken Unknown] Acetaminophen [Tylenol 325mg (*)] 650 mg PO Q4HRS PRN tab 05/10/18 [Last Taken Unknown] Discharge Medications: Refer to the Discharge Home Medication list for PRN reason. PICC Care - Routine: N/A - Orders Diet Recommendation: no restrictions on diet Additional Instructions: Hospice care - Follow Up Care Current Providers and Referrals: Patient,NotPresent [Primary Care Provider] - As per Instructions
--- NOTE | 2018-05-10 15:38 | ASMTCMCOM ---
CM Note CM Note Notes: Patient reviewed during interdisciplinary rounds. She is receiving little ativan over the course of 24 hours. Her brother Catracho is at bedside and is supportive. [facility] hospice visited with patient and spent a great deal of time with patient. Her brother Sunny is proxy and the patient and her brothers were involved in the discussion of what the care would entail and that the patient still has ability to research other care options should she choose to do so. She is amenable as are her brothers. Transfer arranged for 16:30. Orders sent via [employer]. CM available should other needs arise. Plan: DC to [facility] Date Signed: 05/10/2018 03:28 PM Electronically Signed By:Oneyda Santiago RN
--- NOTE | 2018-05-10 15:43 | ASMTLACE ---
MAX Length of stay for Answers: 3 days current admission Comorbidities - select Answers: Any tumor (including all that apply lymphoma or leukemia) # of Emergency department Answers: 5-8 visits in the last 6 months Social determinants Answers: Homelessness (street, care home) History of trauma (PTSD, child abuse, domestic violence, etc.) Mental health diagnosis (anxiety, depression, pers onality disorders, etc.) Lack of community resources and/or lack of social support (no pcp, lives alone, transportation, benjamín d) Score: 22 Date Signed: 05/10/2018 03:32 PM Electronically Signed By:Oneyda Santiago RN
--- NOTE | 2018-05-11 09:46 | ASDISCHSUM ---
Discharge Information Plan Status:Hospice-Inpatient Medically Cleared to Leave:05/11/2018 Discharge Date:05/10/2018 05:12 PM D/C Disposition:Hospice Facility ADT D/C Disposition:Hospice Facility Projected Discharge Date:05/09/2018 11:00 AM Transportation at D/C:ALS/BLS Discharge Delay Reason: Follow-Up Date:05/09/2018 11:00 AM Discharge Slot: Final Diagnosis: Placement Information Referral Type:*Group Home/SNF Referral ID:[id number] Provider Name: Address 1: Phone Number: Address 2: Fax Number: City: Selection Factors: State: [facility] Referral ID:[id number] Provider Name: Address 1: Phone Number: Address 2: Fax Number: City: Selection Factors: State: Referral Type:*Hospice Referral ID:[id number] Provider Name:[facility] Address 1:[address] Address 2: City:[place] Selection Factors: State:[place] Patient Contact Information Contact Name:MARTHA Relationship:Friend Address: Work Phone: City: [facility] Phone: [facility]/Zip Code:[place] Email: Financial Information Financial Class:[employer] Primary Plan Desc:[facility] Primary Plan Number:[id number] Secondary Plan Desc:MEDICA[employer] [place] Secondary Plan Number:[id number] Assessment Information LACE LACE Length of stay for Answers: 3 days current admission Comorbidities - select Answers: Any tumor (including all that apply lymphoma or leukemia) # of Emergency department Answers: 5-8 visits in the last 6 months Social determinants Answers: Homelessness (street, fci) History of trauma (PTSD, child abuse, domestic violence, etc.) Mental health diagnosis (anxiety, depression, pers onality disorders, etc.) Lack of community resources and/or lack of social support (no pcp, lives alone, transportation, benjamín d) Score: 22 Date Signed: 05/10/2018 03:32 PM Electronically Signed By:Oneyda Santiago RN [facility] Progress Note CM Note CM Note Notes: Chart reviewed, patient discussed in rounds. She is well known to this staff as she just discharged Monday. Readmitted via ED for psychotic behaviors and safety concerns. Spoke with her brother Catracho who is visiting [facility]. He is here only till Monday. Her pathology report is back today from biopsy of her liver on 05/02/18 and is positive for metastatic disease in her liver. Today she has been quieter and more subdued but clearly has manic tendencies per her nurse. Melissa Heredia has been closely involved with this patient's POC. Spoke with Dr. Guzman regarding plan of care. Dr Domitila Lacey is to see the patient tomorrow. Discharge panning is challenging given her behaviors and diagnosis CM to follow. Plan: TBD Date Signed: 05/07/2018 04:32 PM Electronically Signed By:Oneyda Santiago RN [facility] CM Progress Note CM Note CM Note Notes: Oncology and psychiatry consults today. Onc recommends endocrine therapy. Per note, he has advised her of life expectancy both with and without treatment. If she does not elect therapy, hospice would be the best option. Melissa Heredia following. A CM from [facility], also called today to offer services. Her number is [phone] ex [phone]. Case Management will follow. Date Signed: 05/08/2018 03:19 PM Electronically Signed By:Meenu Nagel RN [facility] Progress Note CM Note CM Note Notes: Family conference included both brothers and Gene. Jimena was not available. It was decided that Sunny will be the proxy decision maker. Darlene agrees to go to a SNF under the care of [facility] el[facility]. Every attempt will be made to get a discharge for May 09. [facility] the [facility] choice for SNF. Date Signed: 05/08/2018 09:05 PM Electronically Signed By:Melissa Heredia RN [facility] Progress Note CM Note CM Note Notes: Patient has been seen by [facility] evaluated patient and has denied her admission on the basis that there is no definitive diagnosis of dementia. This CM has placed a referral to [facility] as well . Possibly investigate whether [facility] has inpatient bed. CM to follow. Plan: To [facility] with hospice when available. Date Signed: 05/09/2018 02:39 PM Electronically Signed By:Oneyda Santiago RN [facility] CM Progress Note CM Note CM Note Notes: Patient reviewed during interdisciplinary rounds. She is receiving little ativan over the course of 24 hours. Her brother Catracho is at bedside and is supportive. [facility] hospice visited with patient and spent a great deal of time with patient. Her brother Sunny is proxy and the patient and her brothers were involved in the discussion of what the care would entail and that the patient still has ability to research other care options should she choose to do so. She is amenable as are her brothers. Transfer arranged for 16:30. Orders sent via [employer]. CM available should other needs arise. Plan: DC to [facility] Date Signed: 05/10/2018 03:28 PM Electronically Signed By:Oneyda Santiago RN Intervention Information
--- NOTE | 2018-05-13 14:12 | GDS ---
DISCHARGE DIAGNOSES: 1. Acute encephalopathy. Mentation returned to baseline. 2. Anemia, status post 1 unit packed red blood cells. 3. Metastatic breast cancer. 4. Thrombocytosis. 5. Unspecified psychiatric disorder. CONSULTANTS: 1. Dr. Eladio Dunne, Oncology. 2. Dr. Domitila Lacey, Psychiatry. HISTORY OF PRESENT ILLNESS: For details, please see history and physical dated May 07, 2018. In brief, the patient is a 52-year-old female with a history of metastatic malignancy previously of u nkno primary source,who returned to the hospital after recent admission with altered mental status and was found to be anemic. She was admitted to the hospital for further management. HOSPITAL COURSE: The patient was admitted to the med/surgical unit. Her hemoglobin on presentation was 6.7. She received 1 unit of packed red blood cells and hemoglobin has remained stable. There is no evidence of active bleeding. Her acute encephalopathy is thought to be multifactorial in origin, possibly related to malignancy, as well as underlying psychiatric disorder and suspicion for axis II personality disorder. Oncology consult was obtained. She previously underwent a liver biopsy, whic h revealed breast cancer as the primary malignancy source. She has apparently refused treatment up u ntil now. Dr. Dunne, oncologist offered her treatment with tamoxifen, although she refuses this as well. As a matter of fact, she refuses to swallow any pills. Psychiatry consult was obtained and [facility] was also involved. Overall, all of her care team members agree she lacks decisional capac ity. Her brother is medical power of contract attorney and he rescinded his power of contract attorney and appointed a nother brother who is local to be her medical proxy decision maker. Her brother and medical proxy de cision maker ultimately opted to transfer the patient to hospice care. It has been noted by Oncology that her prognosis is very poor, possibly 3 to 6 months given her decision to forego treatment for h er metastatic breast cancer. She was relatively stable and using Ativan at bedtime, along with julia onin, but she, otherwise, refused psychiatric medications. DISPOSITION: Patient is discharged to inpatient hospice in stable condition. FOLLOWUP: Further care per the hospice team. DISCHARGE MEDICATIONS: Please see Anomo for completed outpatient medication list. There are no n ew prescription medications at discharge. She will continue Tylenol 650 mg p.o. q.4 hours p.r.n., me latonin 3 mg p.o. q.h.s., Ativan 0.5 to 1 mg p.o. q.6 hours p.r.n., Haldol 1-2 mg p.o. q.6 hours p.r. n., iron sulfate 325 mg p.o. b.i.d., Senokot 1 tablet p.o. b.i.d. /[id number]/KARENL
== END 2018-05-10 17:12 | disposition hospice, home (50) ==
LOC: EDUNIT# → EEVIPCON 05-07 00:51 → F1N 05-07 03:41
PROVIDERS: ADMIT Student in an Organized Health Care Education/Training Program; ATTEND Student in an Organized Health Care Education/Training Program
PROC: 30233N1 Transfusion of Nonautologous Red Blood Cells into Peripheral Vein, Percutaneous Approach (ICD-10-PCS; principal; 2018-05-07)
DX: G93.49 Other encephalopathy (principal); D64.9 Anemia, unspecified; C79.81 Secondary malignant neoplasm of breast; Z80.0 Family history of malignant neoplasm of digestive organs; Z59.0 Homelessness
CPT/HCPCS: 36430; 93005; 96374; 96376; 99285; G0378; P9016; 84484-PO; J2060

== ENCOUNTER 2018-06-18 18:57 | Emergency (ER) | payer MEDICAID, OTHER ==
[2018-06-18] MEDS ORDERED: LORazepam 1 MG TAB ONE (19:13)
--- NOTE | 2018-06-18 19:21 | EDPHY ---
Addendum entered and electronically signed by Lew Cavazos MD 06/19/18 07: 02: Patient has been accepted back to [facility]. Appropriate transfer will set up. Original Note: H & P - Medical/Surgical History Hx Asthma: No Hx Chronic Respiratory Disease: No Hx Diabetes: No Hx Cardiac Disease: No Hx Renal Disease: No Hx Cirrhosis: No Hx Alcoholism: No Hx HIV/AIDS: No Hx Splenectomy or Spleen Trauma: No Other PMH: anemiaIron deficiency Anemia;malnutrition;episodesof delirium; recent possible metastatic colon Ca, liver mets, encephalopathy, thrombocytosis - Social History Smoking Status: Never smoked Time Seen by Provider: 06/18/18 19:05 HPI/ROS: CHIEF COMPLAINT: Medication noncompliance HISTORY OF PRESENT ILLNESS: 52-year-old female familiar to emergency department and hospital staff arrives via ambulance from [facility]. She is accompanied by the servicenow administrator of [facility], Mariola Jiménez, cell # [phone] as well as a case management Melissa Finnegan who was at [facility] earlier today. The patient has by enlarged being cooperative at [facility] however recently she has had an escalation of behavior, has been refusing to take her medications. She is on an M1 hold at this time. There have been no expressions of suicidality or homicidality. The servicenow administrator of [facility] states that the patient can return to the facility once she is more calm. REVIEW OF SYSTEMS: 10 systems reviewed and negative with the exception of the elements mentioned in the history of present illness PAST MEDICAL & SURGICAL HISTORY: Past medical history significant for encephalopathy, metastatic breast cancer, unspecified psychiatric disorder possible personality disorder SOCIAL HISTORY: Currently living at [facility] PHYSICAL EXAM (Prior to examination, patient consented to physical exam, hands were washed and my usual and customary physical exam procedures followed) 1) GENERAL: Thin, rapid pressured speech, flight of ideas 2) HEAD: Normocephalic, atraumatic 3) HEENT: Pupils equal, round, reactive to light bilaterally. Sclera anicteric. 4) NECK: Full range of motion, no meningeal signs. 5) LUNGS: Clear auscultation bilaterally, no wheezes, no rhonchi, no retractions. 6) HEART: Regular rate and rhythm, no murmur, no heave, no gallop. 7) ABDOMEN: No guarding, no rebound, no focal tenderness, 8) MUSCULOSKELETAL: Moving all extremities, no focal areas of tenderness, no obvious trauma. No peripheral edema or discoloration. 9) BACK: No obvious trauma, no visual or palpable abnormality. 10) SKIN: No rash, no petechiae. 11) Psychiatric: Patient is oriented X 3, there is no agitation. DIFFERENTIAL DIAGNOSIS: In no particular order include but limited to suicidal ideation, homicidal ideation, psychosis, dania medication noncompliance (Patricia,Marlen Pineda) Constitutional: Initial Vital Signs Temperature (C) 36.4 C 06/18/18 18:51 Heart Rate 80 06/18/18 18:51 Respiratory Rate 16 06/18/18 18:51 Blood Pressure 121/64 H 06/18/18 18:51 O2 Sat (%) 92 06/18/18 18:51 O2 Delivery Mode Room Air Allergies/Adverse Reactions: No Known Allergies Allergy (Unverified 06/18/18 20:34) Home Medications: Medication Instructions Recorded Ferrous Sulfate [Ferrous Sulf 325 325 mg PO BID 05/07/18 MG (*)] LORazepam [Ativan (*)] 0.5 - 1 mg PO Q4HRS PRN 05/07/18 Melatonin [Melatonin 3 MG (*)] 3 mg PO HS 05/07/18 Sennosides/Docusate Sodium 1 each PO BID 05/07/18 [Senokot-S] Acetaminophen [Tylenol 325mg (*)] 650 mg PO Q4HRS PRN tab 05/10/18 Aspirin 06/18/18 Cephalexin [Keflex] 500 mg PO TID 7 Days cap 06/18/18 Medical Decision Making ED Course/Re-evaluation: 0600AM: Db with , has seen and spoke with the patient. Plan for patient to go back to [facility] this morning. (Lew Cavazos) 7:25 p.m.: Case management Melissa Finnegan and the servicenow administrator [facility], Mariola Jiménez [facility], are here with the patient. The servicenow administrator agrees to have the patient return to [facility] once she is more calm and she will likely be placed in a locked unit at [facility]. Plan will be mental health evaluation, benzodiazepines as the patient is agitated at this time, likely return to [facility] in the morning. I saw this patient independently based on established practice protocols. Care of patient under supervision of secondary supervising physician Dr Antoinette Lucio with whom I discussed case. 9:08 p.m.: Received a phone call from Dr. Domitila Lacey (cell [phone]) psychiatry who is familiar with the patient. She recommended continued Ativan to encourage the patient to sleep, notes that the patient tends to do significantly better with full sleep cycle. She also recommend checking urinalysis . Ativan has been ordered p.r.n. At this time. Patient is sleeping at this time. 11:06 p.m.: Urinalysis positive for bacteriuria and pyuria. Urine is cultured. Will administer oral cephalexin. Midnight: Care turned over to Dr. Lew Cavazos. The patient is sleeping. ( Marlen Gomez) Other Provider: The patient was evaluated and managed by the Physician Loading Dock Hand. My co- signature indicates that I have reviewed this chart and I agree with the findings and plan of care as documented. I am the secondary supervising physician. (Antoinette Lucio) - Data Points Laboratory Results: Laboratory Results 06/18/18 19:55 06/18/18 19:55 Microbiology Results: MICROBIOLOGY 06/18/18 20:00 Urine,Clean Catch Urine Culture - Final Five Or More [place] Types Medications Given: Discontinued Medications Cephalexin HCl (Keflex) 500 mg PO Q8 ONE PRN Reason: Protocol Stop: 06/18/18 23:39 Last Admin: 06/18/18 23:59 Dose: 500 mg Lorazepam (Ativan) 1 mg PO EDNOW ONE Stop: 06/18/18 20:03 Last Admin: 06/18/18 20:00 Dose: 1 mg Lorazepam (Ativan Injection) 1 mg IVP EDNOW ONE Stop: 06/18/18 21:03 Last Admin: 06/18/18 21:17 Dose: Not Given Lorazepam (Ativan) 1 mg PO EDNOW ONE Stop: 06/19/18 07:02 Last Admin: 06/19/18 07:09 Dose: 1 mg Departure - Departure Disposition: Home, Routine, Self-Care Clinical Impression: Anxiety Urinary tract infection Qualifiers: Urinary tract infection type: acute cystitis Hematuria presence: without hematuria Qualified Code(s): N30.00 - Acute cystitis without hematuria Condition: Good Instructions: Urinary Tract Infection in Women (ED) Referrals: LUCY SHI [Primary Care Provider] - 2-3 days, call for appt. Prescriptions: Cephalexin [Keflex] 500 mg PO TID 7 Days cap
[2018-06-18] MEDS ORDERED: LORazepam 1 MG TAB PO ONE (20:02)
[2018-06-18 20:25] LABS: PLATELET COUNT 758 10^3/uL (150-400)
[2018-06-18] MEDS ORDERED: LORazepam 2 MG/ML INJ IVP ONE (21:02)
[2018-06-18] MEDS ORDERED: CEPHALEXIN 500 MG CAP PO ONE (23:38)
[2018-06-19] MEDS ORDERED: LORazepam 1 MG TAB ONE (07:00)
[2018-06-19] MEDS ORDERED: LORazepam 1 MG TAB PO ONE (07:01)
[2018-06-19 08:26] VITALS: BP 99/64
== END 2018-06-19 08:57 | disposition home or self-care (01) ==
LOC: EDUNIT#
DX: F91.9 Conduct disorder, unspecified (principal); N30.00 Acute cystitis without hematuria; Z91.14 Patient's other noncompliance with medication regimen
CPT/HCPCS: 80305; G0480